=== PATIENT | female | born 1945 | race Two or more races ===

== ENCOUNTER 2024-11-13 15:04 | Inpatient (IN) | payer OTHER ==
[~2024-11-13] VITALS: Ht 170.2 cm; Wt 76.0 kg
[~2024-11-13 15:04] MED LIST: FLUT1AER3 IN; FURO40TA4 PO; HYDR1CAP27 PO; IPRAAER6 IN; LEVO25TA6 PO; METO2.5T PO; METO25TA5 PO; POTA-180 PO; SERT-206 PO; SIMV20TA20 PO
--- NOTE | 2024-11-13 15:29 | ECG ---
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
--- NOTE | 2024-11-13 15:50 | DVH ---
CHEST RADIOGRAPH Indication: SOB Technique: Single frontal view of the chest was obtained Comparison: XY CHEST PORTABLE on DOS: 09/12/24, XY CHEST PORTABLE on DOS: 09/10/24, XY CHEST PORTABLE o n DOS: 09/09/24 FINDINGS: Lines and Tubes: None Lungs: No focal consolidation. Pleura: No effusion. No pneumothorax. Cardiomediastinal contours: Unremarkable Bones: No acute osseous abnormality. IMPRESSION: 1. No acute cardiopulmonary disease.
[2024-11-13 16:28] VITALS: PULSE 113; RESP 18; O2SAT 100
[2024-11-13] MEDS: SODIUM CHLORIDE 0.9% 1,000 ML IV ONE (16:28)
--- NOTE | 2024-11-13 16:38 | ED.PDOC ---
History of Present Illness HPI Comments 79-year-old female came in by ambulance with prior history of CHF, COPD, bladder cancer, hypertension; surgical history of hysterectomy in the chief complain of shortness of breath/weakness. EMS report of the patient's blood pressure being systolic in the 80s, with bilateral with the edema, and an open wound under the right foot. Patient uses O2 at home at 2 L and EMS brought the O2 of two 6 L. EMS report that the patient informed them of the patient having all these symptoms for the past 3 weeks. Denies chills, fever, N/V/D, CP. No other associated symptoms, modifiers, recent injuries or sick contacts present at this time. Patient was tachycardic and hypotensive on arrival. Chief Complaint: General Weakness Time Seen by MD: 15:15 Primary Care Provider: unknown Reviewed Notes: Nurses Notes, Demographer Notes, Medications, Allergies Allergies: Coded Allergies: Bupropion (Verified Allergy, Severe, 07/14/19) Ciprofloxacin (Verified Allergy, Severe, 07/14/19) Naproxen (Verified Allergy, Intermediate, 09/03/24) RASH Home Meds Reported Medications Hydroxyzine Pamoate (Hydroxyzine Pamoate) 25 Mg Cap, 1 CAP PO TID PRN for ANXIETY for 60 Days, #180 09/04/24 Furosemide (Furosemide) 40 Mg Tab, 1 TAB PO BID for 100 Days, #200 25 Iaxjnpccftu-Ihxekylhqwop-Bzrja (Trelegy Ellipta 100-62.5-25 Mcg/INH) 1 Aer Aer, 1 PUFF IN DAILY for 30 Days, #60 3//25 Ipratropium-Albuterol (COMBIVENT RESPIMAT) Respimat Aer, 1 PUFF IN Q6HR PRN for 30 Days, #4 25 Potassium Chloride (Potassium Chloride ER) 20 Meq Tab, 1 TAB PO BID for 90 Days, #180 325 Metolazone (Metolazone) 2.5 Mg Tab, 1 TAB PO DAILY for 90 Days, #90 25 Levothyroxine Sodium (Levothyroxine Sodium) 25 Mcg Tab, 1 TAB PO DAILY for 90 Days, #90 25 Sertraline Hcl (Sertraline Hcl) 50 Mg Tab, 1 TAB PO DAILY for 100 Days, #100 3//25 Metoprolol Tartrate (Metoprolol Tartrate) 25 Mg Tab, 1 TAB PO BID for 100 Days, #200 09/04/24 Simvastatin (Simvastatin) 20 Mg Tab, 1 TAB PO QPM for 100 Days, #100 07/15/19 Information Source: Patient, Emergency Med Personnel Mode of Arrival: EMS Severity: Moderate Timing: Weeks Duration: Since onset Prehospital treatment: None Past Medical History PAST MEDICAL HISTORY: Cancer (Bladder cancer), CHF, COPD, HTN Surgical History: Hysterectomy 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: No Pertinent 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 Family History Family History: Reviewed,noncontributory to illness, Unknown Social History Smoker: Non-Smoker Alcohol: Denies ETOH Use Drugs: Denies Drug Use Lives In: Home Constitutional: reports: malaise, weakness; denies: chills, diaphoresis, fatigue, fever, sweats, others EENTM: denies: blurred vision, double vision, ear bleeding, ear discharge, ear drainage, ear pain, ear ringing, eye pain, eye redness, hearing loss, mouth pain, mouth swelling, nasal discharge, nose bleeding, nose congestion, nose pain, photophobia, tearing, throat pain, throat swelling, voice changes, others Respiratory: reports: shortness of breath; denies: cough, hemoptysis, orthopnea, SOB at rest, SOB with excertion, stridor, wheezing, others Cardiovascular: denies: chest pain, dizzy spells, diaphoresis, Dyspnea on exertion, edema, irregular heart beat, left arm pain, lightheadedness, palpitations, PND, syncope, others Gastrointestinal: denies: abdomen distended, abdominal pain, blood streaked bowels, constipated, diarrhea, dysphagia, difficulty swallowing, hematemesis, melena, nausea, poor appetite, poor fluid intake, rectal bleeding, rectal pain, vomiting, others Genitourinary: denies: abnormal vagina bleeding, burning, dyspareunia, dysuria, flank pain, frequency, hematuria, incontinence, pain, , vagina discharge, urgency, others Neurological: denies: dizziness, fainting, headache, left sided numbness, left sided weakness, numbness, paresthesia, pre-existing deficit, right sided numbness, right sided weakness, seizure, speech problems, tingling, tremors, weakness, others Musculoskeletal: denies: back pain, gout, joint pain, joint swelling, muscle pain, muscle stiffness, neck pain, others Integumetry: denies: bruises, change in color, change in hair/nails, dryness, laceration, lesions, lumps, rash, wounds, others Allergic/Immunocompromised: denies: Difficulty Healing, Frequent Infections, Hives, Itching, others Hematologic/Lymphatic: denies: anemia, blood clots, easy bleeding, easy bruising, swollen glands, others Endocrine: denies: excessive hunger, excessive sweating, excessive thirst, excessive urination, flushing, intolerance to cold, intolerance to heat, unexplained weight gain, unexplained weight loss, others Psychiatric: denies: anxiety, bipolar disorder, depression, hopeless, panic disorder, schizophrenia, sleepless, suicidal, others All Other Systems: Reviewed and Negative Physical Exam General Appearance: Moderate Distress (Patient is a moderate distress due to shortness a breath and general ill feeling concerns.), Normal HEENT: Normal ENT Inspection, Pharynx Normal, TMs Normal Neck: Full Range of Motion, Non-Tender, Normal, Normal Inspection Respiratory: Chest Non-Tender, No Accessory Muscle Use, Other ( Patchy rhonchi appreciated right middle lobe and left upper lobe. No accessory muscle use. No signs of respiratory distress. Patient was on multi L of O2 via nasal cannula at time of evaluation.) Cardiovascular: No Edema, No JVD, No Murmur, No Gallop, Normal Peripheral Pulses, Regular Rate/Rhythm Breast Exam: Deferred Gastrointestinal: No Organomegaly, Non Tender, No Pulsatile Mass, Normal Bowel Sounds, Soft Genitalia: Deferred Pelvic: Deferred Rectal: Deferred Extremities: Tender ( Tenderness to palpation throughout bilateral lower extremity edema with mild 1+ pitting edema appreciated. Patient has a large eschar formation under the right heel that should be evaluated by wound care.) Musculoskeletal : Apperance: Normal Neurologic: Alert, No Motor Deficits, Normal Affect, Normal Mood, No Sensory Deficits Cerebellar Function: NOT DONE Reflexes: NOT DONE Skin: Dry, Normal Color, Warm Lymphatic: No Adenopathy Was a procedure done? Was a procedure done?: No Differential Dx Considerations may include: Acute coronary syndrome, mom viral illness, sepsis, electrolyte abnormality, UTI X-Ray, Labs, Meds, VS Vital Signs Date Time Temp Pulse Resp B/P (MAP) Pulse Ox O2 Delivery O2 Flow Rate FiO2 5/15/25 19:29 97.5 114 12 105/52 (69) 96 97.5 11/13/24 17:35 104 14 96/48 (64) 99 11/13/24 16:28 113 18 100 Nasal Cannula* 4 36 11/13/24 16:28 98.0 70 19 94/53 (67) 95 98.0 11/13/24 15:25 106 11/13/24 15:24 14 92 6.0 11/13/24 15:24 98.2 102 14 96/63 (74) 92 98.2 Lab Test 11/13/24 19:14 11/13/24 17:34 Range/Units Lactic Acid Level Pending 2.1 *H 0.4-2.0 mmol/L Troponin I High Sensitivity Pending 21 </=34 ng/L White Blood Count 7.4 4.4-10.8 10^3/uL Red Blood Count 2.88 L 4.0-5.20 10^6/uL Hemoglobin 9.1 L 12.2-16.2 g/dL Hematocrit 27.4 L 36.0-46.0 % Mean Corpuscular Volume 94.9 80.0-100.0 fL Mean Corpuscular Hemoglobin 31.5 28.0-32.0 pg Mean Corpuscular Hemoglobin Concent 33.2 32.0-36.0 g/dL Red Cell Distribution Width 18.5 H 11.8-14.3 % Platelet Count 225 140-450 10^3/uL Mean Platelet Volume 6.4 L 6.9-10.8 fL Neutrophils (%) (Auto) 65.3 37.0-80.0 % Lymphocytes (%) (Auto) 24.6 10.0-50.0 % Monocytes (%) (Auto) 9.1 0.0-12.0 % Eosinophils (%) (Auto) 0.5 0.0-7.0 % Basophils (%) (Auto) 0.5 0.0-2.0 % Neutrophils # (Auto) 4.8 1.6-8.6 10 ^3/uL Lymphocytes # (Auto) 1.8 0.4-5.4 10 ^3/uL Monocytes # (Auto) 0.7 0-1.3 10 ^3/uL Eosinophils # (Auto) 0 0-0.8 10 ^3/uL Basophils # (Auto) 0 0-0.2 10 ^3/uL Nucleated Red Blood Cells 0.2 % D-Dimer, Quantitative 1.45 H 0.0-0.49 mg/L FEU Sodium Level 136 136-145 mmol/L Potassium Level 2.7 L 3.5-5.1 mmol/L Chloride Level 93 L 98-107 mmol/L Carbon Dioxide Level 34 H 20-31 mmol/L Anion Gap 9 5-15 Blood Urea Nitrogen 15 9-23 mg/dL Creatinine 0.88 0.550-1.02 mg/dL Glomerular Filtration Rate Calc 66 >90 mL/min BUN/Creatinine Ratio 17.0 10.0-20.0 Serum Glucose 75 74-106 mg/dL Calcium Level 8.5 L 8.7-10.4 mg/dL Total Bilirubin 0.2 0.2-1.0 mg/dL Aspartate Amino Transferase (AST) 26 13-40 U/L Alanine Aminotransferase (ALT) 21 7-40 U/L Alkaline Phosphatase 71 46-116 U/L B-Type Natriuretic Peptide 548.37 0-100 pg/mL Total Protein 5.4 L 5.7-8.2 g/dL Albumin 3.3 3.2-4.8 g/dL Lipase 34 12-53 U/L Current Medications Medications (Trade) Dose Ordered Sig/Isha Route Start Time Stop Time Status Last Admin Sodium Chloride 1,000 ml @ 150 mls/hr Q6H40M ONCE IV 11/13/24 15:30 11/13/24 22:09 11/13/24 16:28 Lorazepam (Ativan Tablet) 1 mg ONCE ONCE PO 11/13/24 18:45 11/13/24 18:46 DC 11/13/24 18:50 X-Ray, Labs, Meds, VS Comment All studies performed the ED were evaluated by me personally. Patient's laboratories revealed an anemia, what appears to be a acute CHF exacerbation, hypokalemia and elevated troponin. Patient's EKG revealed an atrial fibrillation with a rapid ventricular rate. Rate of 185 old until infarct noted with repolarization abnormality and baseline wander in leads One, three, AVR and aVL. QT interval of 262. Metoprolol was utilized for AFib conversion. Chest x-ray was unremarkable for any acute intrapulmonary or cardiac concern. Patient will be admitted for management of her CHF concerns as well as cardiac consultation to address her and AFib issues. Time of 1ST Reevaluation: 20:13 Reevaluation 1ST: Improved Consultation: PCP, Cardiology Patient Education/Counseling: Diagnosis, Treatment, Prognosis Family Education/Counseling: Diagnosis, Treatment, No Family Present Departure 1 Departure Time of Disposition: 20:14 Impression: Primary Impression: Atrial fibrillation Additional Impressions: Acute exacerbation of CHF (congestive heart failure) Anemia Hypokalemia Elevated troponin I level Disposition: ADMITTED INPATIENT Condition: Fair Discharged With: Self Critical Care Note Critical Care Time?: No Stability Stability form required: No Heart Score Heart Score: Heart Score Response (Comments) Value History Moderate Suspicious 1 EKG Repolarization Disturb 1 Age >65 2 Risk Factors 1 or 2 risk factors 1 Troponin Normal limit 0 Total 5 I personally scribed for ASPEN MCKINNON PAC ([email or web address]) on 11/13/24 at 16:37. Electronically submitted by Juan Hooker ([email or web address]). ASPEN MCKINNON PAC November 13, 2024 16:37
[2024-11-13 18:01] LABS: Basophils # (auto) 0 10 ^3/uL (0-0.2); Basophils % (auto) 0.5 % (0.0-2.0); Eosinophils # (auto) 0 10 ^3/uL (0-0.8); Eosinophils % (auto) 0.5 % (0.0-7.0); Hematocrit 27.4 % (36.0-46.0); Hemoglobin 9.1 g/dL (12.2-16.2); Lymphocytes # (auto) 1.8 10 ^3/uL (0.4-5.4); Lymphocytes % (auto) 24.6 % (10.0-50.0); Mean Corpuscular Hemoglobin 31.5 pg (28.0-32.0); Mean Corpuscular Hgb Conc. 33.2 g/dL (32.0-36.0); Mean Corpuscular Volume 94.9 fL (80.0-100.0); Monocytes # (auto) 0.7 10 ^3/uL (0-1.3); Monocytes % (auto) 9.1 % (0.0-12.0); Neutrophils # (auto) 4.8 10 ^3/uL (1.6-8.6); Neutrophils % (auto) 65.3 % (37.0-80.0); Nucleated Red Blood Cells % 0.2 %; Platelet Count (auto) 225 10^3/uL (140-450); Red Blood Cells 2.88 10^6/uL (4.0-5.20); Red Cell Distribution Width 18.5 % (11.8-14.3); White Blood Cell 7.4 10^3/uL (4.4-10.8)
[2024-11-13 18:19] LABS: Alanine Aminotransferase 21 U/L (7-40); Albumin 3.3 g/dL (3.2-4.8); Alkaline Phosphatase 71 U/L (46-116); Anion Gap 9 (5-15); Aspartate Aminotransferase 26 U/L (13-40); Blood Urea Nitrogen 15 mg/dL (9-23); Glucose 75 mg/dL (74-106); Lipase 34 U/L (12-53)
[2024-11-13 18:20] LABS: Bilirubin, Total 0.2 mg/dL (0.2-1.0); Calcium 8.5 mg/dL (8.7-10.4); Carbon Dioxide 34 mmol/L (20-31); Chloride 93 mmol/L (98-107); Potassium 2.7 mmol/L (3.5-5.1); Sodium 136 mmol/L (136-145); Total Protein 5.4 g/dL (5.7-8.2)
[2024-11-13 18:21] LABS: Lactic Acid w/Reflex 2.1 mmol/L (0.4-2.0)
[2024-11-13] MEDS: LORazepam 0.5 MG TAB PO ONE (18:50)
[2024-11-13 20:00] VITALS: PULSE 105; RESP 21; O2SAT 100
[2024-11-13] MEDS: POTASSIUM EFFERVESENT TAB 25 MEQ PO ONE (20:15)
[2024-11-13] MEDS: METOPROLOL TARTRATE 1MG/1ML-5ML VIAL IV ONE (20:15)
[2024-11-13] MEDS: IOHEXOL 350 MG/ML 100ML IJ ONE (20:34)
[2024-11-13] MEDS ORDERED: POTASSIUM CHL 20MEQ/50ML 50 ML IV SCH (21:00)
[2024-11-13] MEDS: FUROSEMIDE 40 MG/4 ML VIAL IV ONE (21:13)
--- NOTE | 2024-11-13 21:20 | DVH ---
PROCEDURE: CT CT ANGIO CHEST CONTRAST 11/13/2024 08:33 PM INDICATION: Elevated D-dimer COMPARISON: None TECHNIQUE: Coverage: Thorax IV contrast: Administered Phases: Arterial Multiplanar 3-D Maximum Intensity Projection images (MIP) reconstructions were created by the techngrabiel sánchez in the coronal and sagittal planes as part of the CT angiography protocol. Adverse events: None Medication laboratory values were reviewed to verify the patient meets criteria for contrast administ ration. All CT scans at this medical facility are performed using dose modulation techniques as appropriate t o a performed exam including the following: Automated exposure control was utilized; adjustment of th e MA and/or KV according to patient size; and use of iterative reconstruction technique. Radiation dose: CTDIvol 17.8 mGy, DLP 1057 mGy*cm. FINDINGS: Cardiovascular: Thin chronic appearing eccentric emboli in the posterior basal segmental and subsegme ntal branches of the right lower lobe noted. Pulmonary arterial trunk is prominent measuring 3.3 cm i n transverse. No evidence of right heart strain. Thoracic aorta is normal in caliber with diffuse ath erosclerotic calcifications. 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 No aortic dissection. Coronary artery calcificatio n and calcification of the mitral annulus noted. The heart is normal in size. Trace pericardial effus ion. Lungs: Trace right pleural effusion with mild adjacent compressive atelectasis. Numerous bilateral pu lmonary nodules measuring up to 1.2 cm in the left lower lobe. No pneumothorax. The airways are paten t. Thyroid: Unremarkable. Esophagus: Unremarkable. Lymphatics: Mild mediastinal and bilateral hilar lymphadenopathy with lymph nodes measuring up to 1 c m in short-axis Bones/soft tissues: No acute abnormality. Chronic appearing anterior compression deformities of sever al midthoracic vertebrae without retropulsion. Upper abdomen: Cholelithiasis without evidence of cholecystitis. Small bilateral renal cysts are see n. Several subcentimeter nonobstructing bilateral renal calculi are noted. Left adrenal gland hyperpl merced. Other: None. IMPRESSION: 1. Thin Chronic appearing nonocclusive segmental subsegmental right lower lobe pulmonary emboli with evidence of pulmonary arterial hypertension. 2. Trace right pleural effusion with mild adjacent pulmonary opacities likely subsegmental atelectasi s or developing pneumonia. Recommend clinical and biochemical correlation. 3. Several bilateral pulmonary nodules measuring up to 1.2 cm. Mediastinal or hilar lymphadenopathy n oted.
[2024-11-13] MEDS: POTASSIUM CHL 20MEQ/100ML 100 ML IV SCH (21:45)
[2024-11-13] MEDS ORDERED: ENOXAPARIN SOD 80 MG/0.8ML SYRINGE SC ONE (23:15)
[2024-11-13] MEDS: ENOXAPARIN SOD 40 MG/0.4 ML SYRINGE SC ONE (23:25)
[2024-11-13] MEDS: HYDROcodone-ACET 5/325MG TAB PO PRN (23:33)
--- NOTE | 2024-11-13 23:38 | DVHHP2 ---
History of Present Illness Reason for Visit: COPD with acute exacerbation History of Present Illness The patient is a 79-year-old female with past medical history of bladder cancer, CHF, COPD, thyroid disease, and hypertension who presented to [facility] ED with complaint of shortness of breaths for the past 3 weeks. Patient reports symptoms progressively get worse with generalized weakness, hypotension with systolic blood pressure in the 80s, bilateral lower extremity edema, and open wound under the right foot, increased work of breathing, getting worse today that prompted this visit. Patient was seen and evaluated in the ED, laboratory data shows WBC 7.4, platelets 225, hemoglobin 9.1, hematocrit 27.4, sodium 136, potassium 2.7, BUN 15, creatinine 0.88, glucose 75, lactic acid 2.1, calcium 8.5, troponin 23, BNP 548.37, D-dimer 1.45, blood pressure 97/36, heart rate 118 trending down to 78, temperature 97.6 F, O2 saturation 96% on oxygen. CT Angiography revealing thin chronic appearing nonocclusive segmental subsegmental right lower lobe pulmonary emboli with evidence of pulmonary atrial hypertension, several bilateral pulmonary nodules measuring up to 1.2 cm, mediastinal or hilar lymphadenopathy noted. Patient was started on IV Lasix, please see medication orders section in the computer. On my assessment, patient denies chest pain, no headache, no dizziness, no diaphoresis, no abdominal pain, no nausea, no vomiting, no fever, no chills. Patient was admitted for further evaluation and medical management. Past Medical History Cancer (Bladder cancer), CHF, COPD, HTN, Hypothyroidism Past Surgical History Hysterectomy Family History Reviewed, noncontributory to the management of this case. Past Social History The patient lives at home, denies smoking, alcohol or illicit drugs abuse. Review of Systems Constitutional: Yes: Weakness, Malaise; No: Fever, Chills, Sweats, Other Eyes: No: Pain, Vision change, Conjunctivae inflammation, Eyelid inflammation, Other, Redness ENT: No: Ear pain, Ear discharge, Nose pain, Nose discharge, Nose congestion, Mouth pain, Mouth swelling, Throat pain, Throat swelling, Other Respiratory: Shortness of breath, SOB with excertion, Other (SOB at rest); No: Cough, Dry, Wheezing, Hemoptysis, Pleuritic Pain, Sputum, Wheezing Cardiovascular: No: Chest Pain, Palpitations, Orthopnea, Paroxysmal Noc. Dyspnea, Edema, Lt Headedness, Other Gastrointestinal: No: Nausea, Vomiting, Abdominal Pain, Diarrhea, Constipation, Melena, Hematochezia, Other Genitourinary: No Dysuria, No Frequency, No Incontinence, No Hematuria, No Retention, No Other Musculoskeletal: No: other, neck pain, shoulder pain, arm pain, back pain, hand pain, leg pain, foot pain Skin: Other (Right foot open wound); No: Rash, Lesions, Jaundice, Bruising Neurological: No: Weakness, Numbness, Incoordination, Change in speech, Confusi on, Seizures, Other Allergies: Coded Allergies: Bupropion (Verified Allergy, Severe, 07/14/19) Ciprofloxacin (Verified Allergy, Severe, 07/14/19) Naproxen (Verified Allergy, Intermediate, 09/03/24) RASH Medications Current Medications Medications Dose Ordered Sig/Isha Route Start Time Stop Time Status Last Admin Dose Admin Potassium Chloride 100 ml @ 50 mls/hr Q2H IV 11/13/24 21:30 11/14/24 01:29 11/13/24 21:45 50 MLS/HR Furosemide 20 mg DAILY IV 11/14/24 10:00 Carvedilol 3.125 mg Q12HR PO 11/14/24 10:00 Levalbuterol HCl 0.625 mg Q6HR PRN NEB 11/13/24 23:15 Levothyroxine Sodium 25 mcg QAM@0600 PO 11/14/24 06:00 Atorvastatin Calcium 20 mg HS PO 11/14/24 22:00 Sertraline HCl 50 mg DAILY PO 11/14/24 10:00 Sodium Chloride 10 ml Q8HR IV 11/14/24 06:00 Acetaminophen/ Hydrocodone Bitart 1 tab Q4HP PRN PO 11/13/24 23:15 11/13/24 23:33 1 TAB Ondansetron HCl 4 mg Q4HP PRN IV 11/13/24 23:15 Docusate Sodium 100 mg BIDPRN PRN PO 11/13/24 23:15 Acetaminophen 650 mg Q6HP PRN PO 11/13/24 23:15 Enoxaparin Sodium 60 mg Q12HR SC 11/14/24 10:00 UNV Exam Vital Signs Vital Signs Date Time Temp Pulse Resp B/P (MAP) Pulse Ox O2 Delivery O2 Flow Rate FiO2 11/13/24 21:13 97/36 11/13/24 20:15 78 11/13/24 19:29 97.5 12 96 97.5 11/13/24 16:28 Nasal Cannula* 4 36 General Appearance: Alert, Oriented X3, Cooperative, No acute distress HEENT: Atraumatic, PERRLA, EOMI, Mucous membr. moist/pink Respiratory: Normal air movement, Other (Diminished breath sounds) Cardiovascular: Regular rate, Normal S1, Normal S2, No murmurs Abdominal: Normal bowel sounds, Soft, No tenderness, No hepatospenomegaly, No masses Extremities: No clubbing, No cyanosis, No edema, Normal pulses, No tenderness/swelling Skin: No rashes, No breakdown, No significant lesion Neuro: Normal speech, Normal tone, Sensation intact, Cranial nerves 3-12 NL, Reflexes 2+, Other (Generalized weakness) Psych/Mental Status: Mental status NL, Mood NL Labs/Xrays Labs Test 11/13/24 20:26 11/13/24 19:14 11/13/24 17:34 Range/Units Troponin I High Sensitivity 23 </=34 ng/L Lactic Acid Level 2.1 *H 0.4-2.0 mmol/L White Blood Count 7.4 4.4-10.8 10^3/uL Red Blood Count 2.88 L 4.0-5.20 10^6/uL Hemoglobin 9.1 L 12.2-16.2 g/dL Hematocrit 27.4 L 36.0-46.0 % Mean Corpuscular Volume 94.9 80.0-100.0 fL Mean Corpuscular Hemoglobin 31.5 28.0-32.0 pg Mean Corpuscular Hemoglobin Concent 33.2 32.0-36.0 g/dL Red Cell Distribution Width 18.5 H 11.8-14.3 % Platelet Count 225 140-450 10^3/uL Mean Platelet Volume 6.4 L 6.9-10.8 fL Neutrophils (%) (Auto) 65.3 37.0-80.0 % Lymphocytes (%) (Auto) 24.6 10.0-50.0 % Monocytes (%) (Auto) 9.1 0.0-12.0 % Eosinophils (%) (Auto) 0.5 0.0-7.0 % Basophils (%) (Auto) 0.5 0.0-2.0 % Neutrophils # (Auto) 4.8 1.6-8.6 10 ^3/uL Lymphocytes # (Auto) 1.8 0.4-5.4 10 ^3/uL Monocytes # (Auto) 0.7 0-1.3 10 ^3/uL Eosinophils # (Auto) 0 0-0.8 10 ^3/uL Basophils # (Auto) 0 0-0.2 10 ^3/uL Nucleated Red Blood Cells 0.2 % D-Dimer, Quantitative 1.45 H 0.0-0.49 mg/L FEU Sodium Level 136 136-145 mmol/L Potassium Level 2.7 L 3.5-5.1 mmol/L Chloride Level 93 L 98-107 mmol/L Carbon Dioxide Level 34 H 20-31 mmol/L Anion Gap 9 5-15 Blood Urea Nitrogen 15 9-23 mg/dL Creatinine 0.88 0.550-1.02 mg/dL Glomerular Filtration Rate Calc 66 >90 mL/min BUN/Creatinine Ratio 17.0 10.0-20.0 Serum Glucose 75 74-106 mg/dL Calcium Level 8.5 L 8.7-10.4 mg/dL Total Bilirubin 0.2 0.2-1.0 mg/dL Aspartate Amino Transferase (AST) 26 13-40 U/L Alanine Aminotransferase (ALT) 21 7-40 U/L Alkaline Phosphatase 71 46-116 U/L B-Type Natriuretic Peptide 548.37 0-100 pg/mL Total Protein 5.4 L 5.7-8.2 g/dL Albumin 3.3 3.2-4.8 g/dL Lipase 34 12-53 U/L PATIENT: DREW BROWN ACCT: [id number] UNIT: [id number] : 1945 LOC: ER ROOM / BED: / AGE / SEX: 79 / F ADM STATUS: REG ER SERVICE 00 ORDERING PHYSICIAN: ASPEN MCKINNON PAC PROCEDURE(s): CTACH - CT ANGIO CHEST CONTRAST REASON: Elevated D-dimer ORDER NUMBER(s): [id number], ACCESSION NUMBER(s): [id number] PROCEDURE: CT CT ANGIO CHEST CONTRAST 11/13/2024 08:33 PM INDICATION: Elevated D-dimer COMPARISON: None TECHNIQUE: Coverage: Thorax IV contrast: Administered Phases: Arterial Multiplanar 3-D Maximum Intensity Projection images (MIP) reconstructions were created by the technologist in the coronal and sagittal planes as part of the CT angiography protocol. Adverse events: None Medication laboratory values were reviewed to verify the patient meets criteria for contrast administration. All CT scans at this medical facility are performed using dose modulation techniques as appropriate to a performed exam including the following: Automated exposure control was utilized; adjustment of the MA and/or KV according to patient size; and use of iterative reconstruction technique. Radiation dose: CTDIvol 17.8 mGy, DLP 1057 mGy*cm. FINDINGS: Cardiovascular: Thin chronic appearing eccentric emboli in the posterior basal segmental and subsegmental branches of the right lower lobe noted. Pulmonary arterial trunk is prominent measuring 3.3 cm in transverse. No evidence of right heart strain. Thoracic aorta is normal in caliber with diffuse atherosclerotic calcifications. 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 No aortic dissection. Coronary artery calcification and calcification of the mitral annulus noted. The heart is normal in size. Trace pericardial effusion. Lungs: Trace right pleural effusion with mild adjacent compressive atelectasis. Numerous bilateral pulmonary nodules measuring up to 1.2 cm in the left lower lobe. No pneumothorax. The airways are patent. Thyroid: Unremarkable. Esophagus: Unremarkable. Lymphatics: Mild mediastinal and bilateral hilar lymphadenopathy with lymph nodes measuring up to 1 cm in short-axis Bones/soft tissues: No acute abnormality. Chronic appearing anterior compression deformities of several midthoracic vertebrae without retropulsion. Upper abdomen: Cholelithiasis without evidence of cholecystitis. Small bilateral renal cysts are seen. Several subcentimeter nonobstructing bilateral renal calculi are noted. Left adrenal gland hyperplasia. Other: None. IMPRESSION: 1. Thin Chronic appearing nonocclusive segmental subsegmental right lower lobe pulmonary emboli with evidence of pulmonary arterial hypertension. 2. Trace right pleural effusion with mild adjacent pulmonary opacities likely subsegmental atelectasis or developing pneumonia. Recommend clinical and biochemical correlation. 3. Several bilateral pulmonary nodules measuring up to 1.2 cm. Mediastinal or hilar lymphadenopathy noted. ORDERING PHYSICIAN: ASPEN MCKINNON PAC PROCEDURE(s): CXRP - CHEST PORTABLE REASON: SOB ORDER NUMBER(s): [id number], ACCESSION NUMBER(s): [id number] CHEST RADIOGRAPH Indication: SOB Technique: Single frontal view of the chest was obtained Comparison: XY CHEST PORTABLE on DOS: 09/12/24, XY CHEST PORTABLE on DOS: 09/10/24, XY CHEST PORTABLE on DOS: 09/09/24 FINDINGS: Lines and Tubes: None Lungs: No focal consolidation. Pleura: No effusion. No pneumothorax. Cardiomediastinal contours: Unremarkable Bones: No acute osseous abnormality. IMPRESSION: 1. No acute cardiopulmonary disease. Assessment/Plan Assessment/Plan Atrial fibrillation Pulmonary embolism COPD with acute exacerbation Anemia, unspecified Hypokalemia Generalized weakness Acute exacerbation of congestive heart failure Plan 1. Admit to telemetry unit 2. Breathing treatment 3. Pain control management 4. Management of fluids and electrolytes 5. Consultation for hospitalist/pulmonology 6. Diagnostic tests chest x-ray 7. DVT prophylaxis-on Lovenox 8. Repeat labs CBC, CMP in a.m. 9. Continue with current medical management 10. Treatment plan discussed with patient and RN. Patient verbalized understanding. Plan discussed with: Patient, Other (RN) My Orders Orders - ARIN HUFF DNP Procedure Category Date Status Time Furosemide Injection PHA 11/14/24 In Process (Lasix Injection) 10:00 Carvedilol Tablet PHA 11/14/24 In Process (Coreg Tablet) 10:00 Type And Screen BBK 11/13/24 Logged 23:05 Levalbuterol Hcl PHA 11/13/24 In Process (Xopenex Medneb) 23:15 Levothyroxine Tablet PHA 11/14/24 In Process (Synthroid Tablet) 06:00 Atorvastatin (Lipitor) PHA 11/14/24 In Process 22:00 Sertraline Hcl PHA 11/14/24 In Process (Zoloft) 10:00 Allergies JEAN 11/13/24 In Process 23:05 Code Status CODE 11/13/24 Transmitted 23:05 Sodium Chloride Lock PHA 11/14/24 In Process (Saline Lock Ns) 06:00 Oxygen Per Hour RT 11/13/24 Transmitted 23:05 Hydrocodone-Acet PHA 11/13/24 In Process 5/325mg Tab ([place] 23:15 Ondansetron Hcl PHA 11/13/24 In Process (Zofran) 23:15 Docusate Sodium PHA 11/13/24 In Process Capsule (Colace 23:15 Fall Risk Precautions JEAN 11/13/[address] 23:05 Complete Blood Count LAB 11/14/24 Verified 04:00 Comprehensive LAB 11/14/24 Verified Metabolic Panel 04:00 Condition: Serious JEAN 11/13/24 In Process 23:05 Acetaminophen Tablet PHA 11/13/24 In Process (Tylenol Tablet) 23:15 Bedrest With Bathroom JEAN 11/13/24 In Process Privileg 23:05 Sequential JEAN 11/13/24 In Process Compression Device Enoxaparin Sodium PHA 11/13/24 Logged (Lovenox) 23:15 Enoxaparin Sodium PHA 11/14/24 Logged (Lovenox) 10:00 Admit ADMIT 11/13/24 Transmitted 23:35 Nitroglycerin [facility] 11/13/24 Transmitted Sublingual (Ntrostat 23:45 Morphine Sulfate PHA 11/13/24 Transmitted Injection 23:45 Notify Of Changes [facility] 11/13/24 In Process From Base 23:35 Real Estate Leasing Agent For [facility] 11/13/24 In Process 24 Hours 23:35 Emergency Dysrhythmia [facility] 11/13/24 In Process Protocol 23:35 Rhythm Strips Once [facility] 11/13/24 In Process Every Shift 23:35 Oxygen By Nasal RT 11/13/24 Transmitted Cannula 23:35 Problem List: (1) Atrial fibrillation (2) Pulmonary embolism (3) COPD with acute exacerbation (4) Hypokalemia (5) Anemia, unspecified (6) Generalized weakness (7) Acute CHF (congestive heart failure) Date of Service: November 13, 2024 Billing Provider: ARIN HUFF DNP Common Visit Codes: [id number] INP/OBS CARE (HIGH) ARIN HUFF DNP November 13, 2024 23:37
[2024-11-13] MEDS ORDERED: MORPHINE SULFATE INJ 2 MG/ml SYRG IV PRN (23:45)
[2024-11-13] MEDS ORDERED: NITROGLYCERIN 0.4 MG SL TAB SL PRN (23:45)
[2024-11-14] VITALS (13 sets, daily range): BP systolic 94–101; BP diastolic 44–63; PULSE 66–117; RESP 16–20; TEMP 97.3–98.1; O2SAT 89–100
[2024-11-14] MEDS: ACETAMINOPHEN 325 MG TAB PO PRN (01:25)
[2024-11-14] MEDS: LEVOTHYROXINE SODIUM 25 MCG TAB PO SCH (06:04)
[2024-11-14] MEDS: SODIUM CHLOR 0.9% PF (SALINE LOCK) 10ML VIAL/SYR IV SCH (06:05)
[2024-11-14 06:10] LABS: Basophils # (auto) 0 10 ^3/uL (0-0.2); Eosinophils # (auto) 0.1 10 ^3/uL (0-0.8); Hemoglobin 7.5 g/dL (12.2-16.2); Monocytes # (auto) 0.5 10 ^3/uL (0-1.3); Neutrophils # (auto) 3.3 10 ^3/uL (1.6-8.6); White Blood Cell 5.3 10^3/uL (4.4-10.8)
[2024-11-14 06:15] LABS: Basophils % (auto) 0.6 % (0.0-2.0); Eosinophils % (auto) 1.1 % (0.0-7.0); Hematocrit 22.4 % (36.0-46.0); Lymphocytes # (auto) 1.5 10 ^3/uL (0.4-5.4); Lymphocytes % (auto) 27.6 % (10.0-50.0); Mean Corpuscular Hemoglobin 31.2 pg (28.0-32.0); Mean Corpuscular Hgb Conc. 33.4 g/dL (32.0-36.0); Mean Corpuscular Volume 93.5 fL (80.0-100.0); Monocytes % (auto) 8.8 % (0.0-12.0); Neutrophils % (auto) 61.9 % (37.0-80.0); Nucleated Red Blood Cells % 0.1 %; Platelet Count (auto) 179 10^3/uL (140-450); Red Cell Distribution Width 18.4 % (11.8-14.3)
[2024-11-14 06:28] LABS: Alanine Aminotransferase 15 U/L (7-40); Alkaline Phosphatase 56 U/L (46-116); Anion Gap 4 (5-15); BUN/Creatinine Ratio 14.3 (10.0-20.0); Blood Urea Nitrogen 12 mg/dL (9-23); Chloride 99 mmol/L (98-107); Sodium 136 mmol/L (136-145)
[2024-11-14 06:29] LABS: Aspartate Aminotransferase 19 U/L (13-40)
[2024-11-14 06:30] LABS: Bilirubin, Total 0.2 mg/dL (0.2-1.0); Calcium 8.2 mg/dL (8.7-10.4); Carbon Dioxide 33 mmol/L (20-31); Glucose 71 mg/dL (74-106); Potassium 3.3 mmol/L (3.5-5.1)
[2024-11-14] MEDS: SERTRALINE HCL 50 MG TAB PO SCH (09:51)
[2024-11-14] MEDS: FUROSEMIDE 20 MG/2 ML VIAL IV SCH (09:51)
[2024-11-14] MEDS: CARVEDILOL 3.125 MG TAB PO SCH (09:52)
[2024-11-14] MEDS: ENOXAPARIN SOD 60 MG/0.6 ML SYRINGE SC SCH (09:52)
--- NOTE | 2024-11-14 13:13 | DVHPN2 ---
Reviewed: Care Plan, H&P, Labs, Medications, Previous Orders, Radiology Changes from previous H/P or p: No Changes Eyes: No Pain, No Vision change, No Conjunctivae inflammation, No Eyelid inflammation, No Other, No Redness ENT: No Ear pain, No Ear discharge, No Nose pain, No Nose discharge, No Nose congestion, No Mouth pain, No Mouth swelling, No Throat pain, No Throat swelling, No Other Cardiovascular: No Chest Pain, No Palpitations, No Orthopnea, No Paroxysmal Noc. Dyspnea, No Edema, No Lt Headedness, No Other Respiratory: No Cough, No Dry; Shortness of breath, SOB with excertion; No Wheezing, No Hemoptysis, No Pleuritic Pain, No Sputum; Other (SOB at rest) Gastrointestinal: No Nausea, No Vomiting, No Abdominal Pain, No Diarrhea, No Constipation, No Melena, No Hematochezia, No Other Genitourinary: No Dysuria, No Frequency, No Incontinence, No Hematuria, No Retention, No Other Musculoskeletal: No other, No neck pain, No shoulder pain, No arm pain, No back pain, No hand pain, No leg pain, No foot pain Skin: No Rash, No Lesions, No Jaundice, No Bruising; Other (Right foot open wound) Objective Vitals Vital Signs Date Time Temp Pulse Resp B/P (MAP) Pulse Ox O2 Delivery O2 Flow Rate FiO2 11/14/24 09:51 96/58 11/14/24 08:55 97.6 66 18 89 97.6 11/14/24 08:15 Nasal Cannula 4.0 11/14/24 08:15 36 Intake/Output Intake and Output 11/14/24 07:00 Intake Total 850 ml Balance 850 ml Intake Oral 200 ml IV Total 650 ml # Voids 1 Medications Current Medications Medications Dose Ordered Sig/Isha Route Start Time Stop Time Status Last Admin Dose Admin Furosemide 20 mg DAILY IV 11/14/24 10:00 11/14/24 09:51 20 MG Carvedilol 3.125 mg Q12HR PO 11/14/24 10:00 Levalbuterol HCl 0.625 mg Q6HR PRN NEB 11/13/24 23:15 Levothyroxine Sodium 25 mcg QAM@0600 PO 11/14/24 06:00 11/14/24 06:04 25 MCG Atorvastatin Calcium 20 mg HS PO 11/14/24 22:00 Sertraline HCl 50 mg DAILY PO 11/14/24 10:00 11/14/24 09:51 50 MG Sodium Chloride 10 ml Q8HR IV 11/14/24 06:00 11/14/24 06:05 10 ML Acetaminophen/ Hydrocodone Bitart 1 tab Q4HP PRN PO 11/13/24 23:15 11/13/24 23:33 1 TAB Ondansetron HCl 4 mg Q4HP PRN IV 11/13/24 23:15 Docusate Sodium 100 mg BIDPRN PRN PO 11/13/24 23:15 Acetaminophen 650 mg Q6HP PRN PO 11/13/24 23:15 11/14/24 01:25 650 MG Enoxaparin Sodium 60 mg Q12HR SC 11/14/24 10:00 11/14/24 09:52 60 MG Nitroglycerin 0.4 mg Q5MINP PRN SL 11/13/24 23:45 Morphine Sulfate 2 mg Q30M PRN IV 11/13/24 23:45 Laboratory Results Laboratory Tests 11/14/24 05:11 Chemistry Test 11/13/24 17:34 11/14/24 05:11 Albumin 3.3 g/dL (3.2-4.8) 3.0 g/dL (3.2-4.8) L Calcium Level 8.5 mg/dL (8.7-10.4) L 8.2 mg/dL (8.7-10.4) L Total Protein 5.4 g/dL (5.7-8.2) L 5.0 g/dL (5.7-8.2) L Coagulation Test 11/13/24 17:34 D-Dimer, Quantitative 1.45 mg/L FEU (0.0-0.49) H Lipid panel Test 11/13/24 17:34 Lipase 34 U/L (12-53) Cardiac Markers Test 11/13/24 17:34 B-Type Natriuretic Peptide 548.37 pg/mL (0-100) LFT Test 11/13/24 17:34 11/14/24 05:11 Alanine Aminotransferase (ALT) 21 U/L (7-40) 15 U/L (7-40) Alkaline Phosphatase 71 U/L (46-116) 56 U/L (46-116) Aspartate Amino Transferase (AST) 26 U/L (13-40) 19 U/L (13-40) Total Bilirubin 0.2 mg/dL (0.2-1.0) 0.2 mg/dL (0.2-1.0) Labs and/or images reviewed: Labs reviewed by me, Image(s) reviewed by me Assessment/Plan Assessment/Plan Secondary to right lower lobe pneumonia: Rocephin azithromycin Acute hypoxic respiratory failure COPD exacerbation Chronic respiratory failure on home O2 Atrial fibrillation w RVR Acute on chronic CHF exacerbation History of bladder cancer status post chemo possible lung mets AFib HTN Hypothyroidism Depression Elevated troponin Generalized weakness Constipation Peripheral arterial disease Patient is hospice revoked Time spent 70 minutes Advanced care planning time 20 minutes Patient is full code Plan discussed with: Patient Date of Service: November 14, 2024 Billing Provider: DANO MOJICA MD Common Visit Codes: [id number] CARE 30-74 MIN DANO MOJICA MD November 14, 2024 13:13
[2024-11-14] MEDS: cefTRIAXone 1GM/50ML D5W 50 ML IV ONE (15:44)
[2024-11-14] MEDS: AZITHROMYCIN 500MG/ 250ML 250 ML IV ONE (15:44)
[2024-11-14] MEDS: ATORVASTATIN 20 MG TAB PO SCH (21:12)
[2024-11-14] MEDS: LORazepam 0.5 MG TAB PO PRN (21:13)
[2024-11-15] VITALS (23 sets, daily range): BP systolic 79–137; BP diastolic 45–73; PULSE 45–122; RESP 12–19; TEMP 97.6–97.8; O2SAT 90–100
[2024-11-15 06:57] LABS: Alanine Aminotransferase 17 U/L (7-40); Alkaline Phosphatase 58 U/L (46-116); Anion Gap 5 (5-15); Aspartate Aminotransferase 19 U/L (13-40); BUN/Creatinine Ratio 17.5 (10.0-20.0); Blood Urea Nitrogen 14 mg/dL (9-23); Sodium 139 mmol/L (136-145)
[2024-11-15 06:59] LABS: Basophils # (auto) 0 10 ^3/uL (0-0.2); Eosinophils # (auto) 0.1 10 ^3/uL (0-0.8); Lymphocytes # (auto) 1.4 10 ^3/uL (0.4-5.4); Monocytes # (auto) 0.4 10 ^3/uL (0-1.3); White Blood Cell 5.5 10^3/uL (4.4-10.8)
[2024-11-15 07:01] LABS: Basophils % (auto) 0.7 % (0.0-2.0); Eosinophils % (auto) 1.5 % (0.0-7.0); Hematocrit 21.9 % (36.0-46.0); Hemoglobin 7.3 g/dL (12.2-16.2); Mean Corpuscular Hemoglobin 31.8 pg (28.0-32.0); Mean Corpuscular Hgb Conc. 33.6 g/dL (32.0-36.0); Mean Corpuscular Volume 94.7 fL (80.0-100.0); Neutrophils # (auto) 3.6 10 ^3/uL (1.6-8.6); Neutrophils % (auto) 64.8 % (37.0-80.0); Platelet Count (auto) 173 10^3/uL (140-450); Red Blood Cells 2.31 10^6/uL (4.0-5.20); Red Cell Distribution Width 17.8 % (11.8-14.3)
[2024-11-15 07:07] LABS: Albumin 3.1 g/dL (3.2-4.8); Bilirubin, Total 0.2 mg/dL (0.2-1.0); Carbon Dioxide 38 mmol/L (20-31); Chloride 96 mmol/L (98-107); Glucose 68 mg/dL (74-106); Potassium 3.1 mmol/L (3.5-5.1); Total Protein 5.3 g/dL (5.7-8.2)
[2024-11-15] MEDS: LEVALBUTEROL HCL 1.25 MG/3 ML NEB NEB PRN (09:48)
--- NOTE | 2024-11-15 09:50 | DVHPN2 ---
Reviewed: Care Plan, H&P, Labs, Medications, Previous Orders, Radiology Changes from previous H/P or p: No Changes Eyes: No Pain, No Vision change, No Conjunctivae inflammation, No Eyelid inflammation, No Other, No Redness ENT: No Ear pain, No Ear discharge, No Nose pain, No Nose discharge, No Nose congestion, No Mouth pain, No Mouth swelling, No Throat pain, No Throat swelling, No Other Cardiovascular: No Chest Pain, No Palpitations, No Orthopnea, No Paroxysmal Noc. Dyspnea, No Edema, No Lt Headedness, No Other Respiratory: No Cough, No Dry; Shortness of breath, SOB with excertion; No Wheezing, No Hemoptysis, No Pleuritic Pain, No Sputum; Other (SOB at rest) Gastrointestinal: No Nausea, No Vomiting, No Abdominal Pain, No Diarrhea, No Constipation, No Melena, No Hematochezia, No Other Genitourinary: No Dysuria, No Frequency, No Incontinence, No Hematuria, No Retention, No Other Musculoskeletal: No other, No neck pain, No shoulder pain, No arm pain, No back pain, No hand pain, No leg pain, No foot pain Skin: No Rash, No Lesions, No Jaundice, No Bruising; Other (Right foot open wound) Objective Vitals Vital Signs Date Time Temp Pulse Resp B/P (MAP) Pulse Ox O2 Delivery O2 Flow Rate FiO2 11/15/24 08:51 97.6 45 16 95/53 (67) 90 97.6 11/15/24 00:40 Nasal Cannula* 4 36 Intake/Output Intake and Output 11/15/24 07:00 Intake Total 800 ml Output Total 300 ml Balance 500 ml Intake Oral 800 ml Output Urine Total 300 ml Medications Current Medications Medications Dose Ordered Sig/Isha Route Start Time Stop Time Status Last Admin Dose Admin Furosemide 20 mg DAILY IV 11/14/24 10:00 11/14/24 09:51 20 MG Carvedilol 3.125 mg Q12HR PO 11/14/24 10:00 Levalbuterol HCl 0.625 mg Q6HR PRN NEB 11/13/24 23:15 Levothyroxine Sodium 25 mcg QAM@0600 PO 11/14/24 06:00 11/15/24 05:50 25 MCG Atorvastatin Calcium 20 mg HS PO 11/14/24 22:00 11/14/24 21:12 20 MG Sertraline HCl 50 mg DAILY PO 11/14/24 10:00 11/14/24 09:51 50 MG Sodium Chloride 10 ml Q8HR IV 11/14/24 06:00 11/15/24 05:51 10 ML Acetaminophen/ Hydrocodone Bitart 1 tab Q4HP PRN PO 11/13/24 23:15 11/14/24 15:56 1 TAB Ondansetron HCl 4 mg Q4HP PRN IV 11/13/24 23:15 Docusate Sodium 100 mg BIDPRN PRN PO 11/13/24 23:15 Acetaminophen 650 mg Q6HP PRN PO 11/13/24 23:15 11/14/24 01:25 650 MG Enoxaparin Sodium 60 mg Q12HR SC 11/14/24 10:00 11/14/24 21:13 60 MG Nitroglycerin 0.4 mg Q5MINP PRN SL 11/13/24 23:45 Morphine Sulfate 2 mg Q30M PRN IV 11/13/24 23:45 Ceftriaxone Sodium 50 ml @ 100 mls/hr DAILY@09 IV 11/15/24 09:00 Azithromycin 250 ml @ 125 mls/hr DAILY IV 11/15/24 10:00 Lorazepam 1 mg Q6HP PRN PO 11/14/24 16:15 11/14/24 21:13 1 MG Laboratory Results Laboratory Tests 11/15/24 05:03 Chemistry Test 11/15/24 05:03 Albumin 3.1 g/dL (3.2-4.8) L Calcium Level 9.0 mg/dL (8.7-10.4) Total Protein 5.3 g/dL (5.7-8.2) L LFT Test 11/15/24 05:03 Alanine Aminotransferase (ALT) 17 U/L (7-40) Alkaline Phosphatase 58 U/L (46-116) Aspartate Amino Transferase (AST) 19 U/L (13-40) Total Bilirubin 0.2 mg/dL (0.2-1.0) Labs and/or images reviewed: Labs reviewed by me, Image(s) reviewed by me Assessment/Plan Assessment/Plan Sepsis Secondary to right lower lobe pneumonia: Rocephin azithromycin Acute hypoxic respiratory failure PE right lower lobe Lovenox therapeutic dose consult for COPD exacerbation Chronic respiratory failure on home O2 Atrial fibrillation w RVR Acute on chronic CHF exacerbation History of bladder cancer status post chemo possible lung mets AFib HTN Hypothyroidism Depression Elevated troponin Generalized weakness Constipation Peripheral arterial disease Patient is hospice revoked, patient was with [facility] Time spent 70 minutes Advanced care planning time 20 minutes Patient is full code Patient insisting to go home Plan discussed with: Patient My Orders Orders - DANO MOJICA MD Procedure Category Date Status Time Ceftriaxone 1gm/50ml PHA 11/15/24 In Process D5w (Rocephin) 09:00 Azithromycin 500mg/ PHA 11/15/24 In Process 250ml (Zithromax 50 10:00 Blood Culture [place] 11/14/24 In Process 13:13 Lorazepam Tablet PHA 11/14/24 In Process (Ativan Tablet) 16:15 Date of Service: November 15, 2024 Billing Provider: DANO MOJICA MD Common Visit Codes: [id number] CARE 30-74 MIN DANO MOJICA MD November 15, 2024 09:50
[2024-11-15] MEDS: cefTRIAXone 1GM/50ML D5W 50 ML IV SCH (11:07)
[2024-11-15] MEDS: DOCUSATE SOD 100 MG CAP PO PRN (11:10)
[2024-11-15] MEDS ORDERED: SODIUM CHLORIDE 0.9% 1,000 ML IV ONE (11:30)
[2024-11-15] MEDS: SODIUM CHLORIDE 0.9% 1,000 ML IV SCH (11:45)
[2024-11-15] MEDS: POTASSIUM EFFERVESENT TAB 25 MEQ PO ONE (12:21)
[2024-11-15] MEDS: AZITHROMYCIN 500MG/ 250ML 250 ML IV SCH (13:10)
[2024-11-15] MEDS: ONDANSETRON HCL 4 MG/2 ML VIAL IV PRN (16:02)
[2024-11-15 17:39] LABS: Basophils # (auto) 0 10 ^3/uL (0-0.2); Basophils % (auto) 0.4 % (0.0-2.0); Eosinophils # (auto) 0.1 10 ^3/uL (0-0.8); Hemoglobin 7.9 g/dL (12.2-16.2); Monocytes # (auto) 0.6 10 ^3/uL (0-1.3)
[2024-11-15 17:42] LABS: Hematocrit 24.3 % (36.0-46.0); Lymphocytes % (auto) 14.3 % (10.0-50.0); Mean Corpuscular Hemoglobin 31.2 pg (28.0-32.0); Mean Corpuscular Hgb Conc. 32.6 g/dL (32.0-36.0); Mean Corpuscular Volume 95.8 fL (80.0-100.0); Monocytes % (auto) 9.5 % (0.0-12.0); Neutrophils # (auto) 5.1 10 ^3/uL (1.6-8.6); Neutrophils % (auto) 74.8 % (37.0-80.0); Nucleated Red Blood Cells % 0.1 %; Platelet Count (auto) 182 10^3/uL (140-450); Red Blood Cells 2.54 10^6/uL (4.0-5.20); Red Cell Distribution Width 18.5 % (11.8-14.3); White Blood Cell 6.8 10^3/uL (4.4-10.8)
--- NOTE | 2024-11-15 19:26 | DVHINCON2 ---
Date of service: November 15, 2024 Referring Physician Yogesh Ziegler MD Reason for Consultation Acute on chronic hypoxic respiratory failure, pulmonary embolism, pleural effusion History of Present Illness An 79-year-old woman with past medical history of COPD, bladder cancer, CHF, thyroid disease, and hypertension who presented to ED on 11/13/24 with complaint of shortness of breath for the past 3 weeks. Patient reported symptoms progressively worsened with generalized weakness, hypotension with systolic BP in the 80s, bilateral lower extremity edema, open wound under the right foot, and increased work of breathing, prompting ED visit. ED workup showed WBC 7.4, platelets 225, hemoglobin 9.1, hematocrit 27.4, sodium 136, potassium 2.7, BUN 15, creatinine 0.88, glucose 75, lactic acid 2.1, elsie cium 8.5, troponin 23, BNP 548.37, D-dimer 1.45, blood pressure 97/36, heart rate 118 trending down to 78, temperature 97.6 F, O2 saturation 96% on oxygen. CT Angiography revealing thin chronic appearing nonocclusive segmental subsegmental RLL pulmonary emboli with pulmonary atrial hypertension, several bilateral pulmonary nodules measuring up to 1.2 cm, mediastinal or hilar lymp hadenopathy. Patient was admitted for further care. Pulmonary consultation is requested for evaluation and management of acute on chronic hypoxic respiratory failure, pulmonary embolism, and pleural effusion. Review of Systems: 14-point review of systems negative unless otherwise noted above. Past Medical History: Bladder cancer, CHF, COPD, hypothyroidism and hypertension Past Surgical History: Hysterectomy Medications: Reviewed. Allergies: No known drug allergies. Family History: No family history of premature CAD. No family history of lung disorders. Social History: Nonsmoker. No alcohol or illicit drug use. Family History: Alcoholism G8 MOTHER G8 FATHER FH: alcohol abuse G8 FATHER FH: lung cancer G8 MOTHER Allergies: Coded Allergies: Bupropion (Verified Allergy, Severe, 07/14/19) Ciprofloxacin (Verified Allergy, Severe, 07/14/19) Naproxen (Verified Allergy, Intermediate, 09/03/24) RASH Home Meds Reported Medications Hydroxyzine Pamoate (Hydroxyzine Pamoate) 25 Mg Cap, 1 CAP PO TID PRN for ANXIETY for 60 Days, #180 09/04/24 Furosemide (Furosemide) 40 Mg Tab, 1 TAB PO BID for 100 Days, #200 09/04/24 Sbjthcapfuq-Dvmomiahgneo-Kyxox (Trelegy Ellipta 100-62.5-25 Mcg/INH) 1 Aer Aer, 1 PUFF IN DAILY for 30 Days, #60 09/04/24 Ipratropium-Albuterol (COMBIVENT RESPIMAT) Respimat Aer, 1 PUFF IN Q6HR PRN for 30 Days, #4 09/04/24 Potassium Chloride (Potassium Chloride ER) 20 Meq Tab, 1 TAB PO BID for 90 Days, #180 09/04/24 Metolazone (Metolazone) 2.5 Mg Tab, 1 TAB PO DAILY for 90 Days, #90 09/04/24 Levothyroxine Sodium (Levothyroxine Sodium) 25 Mcg Tab, 1 TAB PO DAILY for 90 Days, #90 09/04/24 Sertraline Hcl (Sertraline Hcl) 50 Mg Tab, 1 TAB PO DAILY for 100 Days, #100 09/04/24 Metoprolol Tartrate (Metoprolol Tartrate) 25 Mg Tab, 1 TAB PO BID for 100 Days, #200 09/04/24 Simvastatin (Simvastatin) 20 Mg Tab, 1 TAB PO QPM for 100 Days, #100 07/15/19 Current Medications Current Medications Medications (Trade) Dose Ordered Sig/Isha Route PRN Reason Start Time Stop Time Status Last Admin Atorvastatin Calcium (Lipitor) 20 mg HS PO 11/14/24 22:00 11/14/24 21:12 Ceftriaxone Sodium 50 ml @ 100 mls/hr DAILY@09 IV 11/15/24 09:00 11/15/24 11:07 Azithromycin 250 ml @ 125 mls/hr DAILY IV 11/15/24 10:00 11/15/24 13:10 Potassium Chloride (Klor-Con Tablet) 20 meq DAILY PO 11/16/24 10:00 Sodium Chloride 1,000 ml @ 100 mls/hr Q10H IV 11/15/24 11:45 11/15/24 11:45 Pantoprazole Sodium (Protonix) 40 mg BID IV 11/15/24 22:00 Vital Signs Vital Signs Date Time Temp Pulse Resp B/P (MAP) Pulse Ox O2 Delivery O2 Flow Rate FiO2 11/15/24 19:14 110 18 100 11/15/24 19:09 Nasal Cannula 3.0 11/15/24 19:09 32 11/15/24 18:17 96/60 (72) 11/15/24 08:51 97.6 97.6 Physical Exam Gen.: Patient lying in bed in no apparent distress. On supplemental oxygen. Head: Normocephalic, atraumatic. Eyes: EOMI/PERRLA. Ears: Normal hearing. Normal anatomy. Neck/trachea: Trachea midline, supple. Nose: Normal external anatomy. Mouth: Moist mucous membranes. Chest: Decreased air entry bilaterally. No wheezing or rhonchi. Cardiovascular: Positive S1, positive S2. Regular rate and rhythm. Abdomen: Positive bowel sounds in all 4 quadrants. Soft, non-tender, non- distended. : Deferred. Rectal: Deferred. Skin: Warm, dry. Intact. Extremities: 2+ radial pulses bilaterally. No lower extremity edema. Neuro: Awake, alert, oriented x3. No gross motor or sensory deficits. Cranial nerves II through XII intact. Gait not assessed. Labs/Diagnostic Data Labs Test 11/15/24 17:16 11/15/24 14:04 11/15/24 11:32 11/15/24 05:03 Range/Units White Blood Count 6.8 4.4-10.8 10^3/uL Red Blood Count 2.54 L 4.0-5.20 10^6/uL Hemoglobin 7.9 L 12.2-16.2 g/dL Hematocrit 24.3 #L 36.0-46.0 % Mean Corpuscular Volume 95.8 80.0-100.0 fL Mean Corpuscular Hemoglobin 31.2 28.0-32.0 pg Mean Corpuscular Hemoglobin Concent 32.6 32.0-36.0 g/dL Red Cell Distribution Width 18.5 H 11.8-14.3 % Platelet Count 182 140-450 10^3/uL Mean Platelet Volume 6.4 L 6.9-10.8 fL Neutrophils (%) (Auto) 74.8 37.0-80.0 % Lymphocytes (%) (Auto) 14.3 10.0-50.0 % Monocytes (%) (Auto) 9.5 0.0-12.0 % Eosinophils (%) (Auto) 1.0 0.0-7.0 % Basophils (%) (Auto) 0.4 0.0-2.0 % Neutrophils # (Auto) 5.1 1.6-8.6 10 ^3/uL Lymphocytes # (Auto) 1.0 0.4-5.4 10 ^3/uL Monocytes # (Auto) 0.6 0-1.3 10 ^3/uL Eosinophils # (Auto) 0.1 0-0.8 10 ^3/uL Basophils # (Auto) 0 0-0.2 10 ^3/uL Nucleated Red Blood Cells 0.1 % Lactic Acid Level 1.9 0.4-2.0 mmol/L Stool Occult Blood Positive Negative Stool Occult Blood Sample #3 Negative POC Glucose 91 70-106 mg/dl Sodium Level 139 136-145 mmol/L Potassium Level 3.1 L 3.5-5.1 mmol/L Chloride Level 96 L 98-107 mmol/L Carbon Dioxide Level 38 H 20-31 mmol/L Anion Gap 5 5-15 Blood Urea Nitrogen 14 9-23 mg/dL Creatinine 0.80 0.550-1.02 mg/dL Glomerular Filtration Rate Calc 74 >90 mL/min BUN/Creatinine Ratio 17.5 10.0-20.0 Serum Glucose 68 L 74-106 mg/dL Calcium Level 9.0 8.7-10.4 mg/dL Total Bilirubin 0.2 0.2-1.0 mg/dL Aspartate Amino Transferase (AST) 19 13-40 U/L Alanine Aminotransferase (ALT) 17 7-40 U/L Alkaline Phosphatase 58 46-116 U/L Total Protein 5.3 L 5.7-8.2 g/dL Albumin 3.1 L 3.2-4.8 g/dL Test 11/13/24 20:26 11/13/24 17:34 Range/Units Troponin I High Sensitivity 23 </=34 ng/L D-Dimer, Quantitative 1.45 H 0.0-0.49 mg/L FEU B-Type Natriuretic Peptide 548.37 0-100 pg/mL Lipase 34 12-53 U/L Microbiology Date/Time Source Procedure Growth Status 11/14/24 13:30 Blood Blood Culture - Preliminary NO GROWTH AFTER 24 HOURS OF INCUBATION. Resulted Assessment Impression: Acute on chronic hypoxic respiratory failure Dependence on supplemental oxygen Pulmonary embolism Pleural effusion, trace Atelectasis Chronic obstructive pulmonary disease Plan: Supplemental oxygen 4 LPM NC Titrate to keep O2 sats above 92%. Taper O2 as tolerated. Continue bronchodilators. Continue antibiotics Incentive spirometry CTA on 11/13 revealed thin chronic-appearing nonocclusive segmental and subsegmental right lower lobe pulmonary emboli with e/o pulmonary arterial hypertension. Trace right pleural effusion with mild adjacent pulmonary opacities, likely subsegmental atelectasis or developing pneumonia. Several bilateral pulmonary nodules measuring up to 1.2 cm. Mediastinal or hilar lymphadenopathy noted. Diurese as tolerated Monitor renal function. Monitor electrolytes. Supplement as necessary. Supplement potassium Monitor ins and outs. Note, Lasix was held due to low BP. DVT prophylaxis. Prognosis: Poor given patient's multiple co-morbidities. Rest of plan per hospitalist and other consultants. Thank you Dr. Ziegler, for allowing me to participate in this patient's care. Further recommendations will depend on the patient's clinical course. Please do not hesitate to contact me if you have any questions or concerns. This medical document was created using an electronic medical record system with [employer] computerized dictation system. Although these documentations are being carefully reviewed, there may still be some phonetic and typographical changes. The errors are purely typographical, due to imperfection on the software program, and do not reflect any compromise in the patient's medical care. Plan discussed with: Other (YURIDIA King/Dr. Ziegler) MEGAN MAGAÑA MD November 15, 2024 19:26
--- NOTE | 2024-11-15 20:13 | DVHINCON2 ---
Date of service: November 15, [address] Ziegler Reason for Consultation GI bleeding anemia with CHF COPD and possible pulmonary embolus History of Present Illness This 79-year-old female with a history of bladder cancer congestive heart failure COPD thyroid problems hypertension admitted to the complaints with shortness of breath Patient got worse with severe hypotension and blood pressure varying into the 80s. Patient also has got bilateral leg edema and open wound under the right food. Because of the progressive shortness of breath. CT angiogram were done which showed that there is no necrosis segmental subsegmental right lower lobe pulmonary emboli and bilateral pulmonary nodules. Patient denies any chest pain. Patient has started having blood in the stools and hemoglobin has dropped to 7 g in with black stools and hence the reason for the GI consult patient has got history of hemorrhoids and some some rectal bleeding in the past with the hemorrhoids. But no fresh bleeding now mostly dark tarry stools his hypotensive as well as having black-colored stools. Past Medical History Bladder cancer congestive heart failure COPD hypertension hypothyroidism patient is on home oxygen Past Surgical History Hysterectomy Family History: Alcoholism G8 MOTHER G8 FATHER FH: alcohol abuse G8 FATHER FH: lung cancer G8 MOTHER Family History Noncontributory Social History Denies smoking drug abuse or alcohol abuse Allergies: Coded Allergies: Bupropion (Verified Allergy, Severe, 07/14/19) Ciprofloxacin (Verified Allergy, Severe, 07/14/19) Naproxen (Verified Allergy, Intermediate, 09/03/24) RASH Home Meds Reported Medications Hydroxyzine Pamoate (Hydroxyzine Pamoate) 25 Mg Cap, 1 CAP PO TID PRN for ANXIETY for 60 Days, #180 09/04/24 Furosemide (Furosemide) 40 Mg Tab, 1 TAB PO BID for 100 Days, #200 25 Buoxecjpuwy-Rmagizcwimvk-Bbbno (Trelegy Ellipta 100-62.5-25 Mcg/INH) 1 Aer Aer, 1 PUFF IN DAILY for 30 Days, #60 25 Ipratropium-Albuterol (COMBIVENT RESPIMAT) Respimat Aer, 1 PUFF IN Q6HR PRN for 30 Days, #4 09/04/24 Potassium Chloride (Potassium Chloride ER) 20 Meq Tab, 1 TAB PO BID for 90 Days, #180 25 Metolazone (Metolazone) 2.5 Mg Tab, 1 TAB PO DAILY for 90 Days, #90 09/04/24 Levothyroxine Sodium (Levothyroxine Sodium) 25 Mcg Tab, 1 TAB PO DAILY for 90 Days, #90 09/04/24 Sertraline Hcl (Sertraline Hcl) 50 Mg Tab, 1 TAB PO DAILY for 100 Days, #100 09/04/24 Metoprolol Tartrate (Metoprolol Tartrate) 25 Mg Tab, 1 TAB PO BID for 100 Days, #200 09/04/24 Simvastatin (Simvastatin) 20 Mg Tab, 1 TAB PO QPM for 100 Days, #100 07/15/19 Current Medications Current Medications Medications (Trade) Dose Ordered Sig/Isha Route PRN Reason Start Time Stop Time Status Last Admin Atorvastatin Calcium (Lipitor) 20 mg HS PO 11/14/24 22:00 11/14/24 21:12 Ceftriaxone Sodium 50 ml @ 100 mls/hr DAILY@09 IV 11/15/24 09:00 11/15/24 11:07 Azithromycin 250 ml @ 125 mls/hr DAILY IV 11/15/24 10:00 11/15/24 13:10 Potassium Chloride (Klor-Con Tablet) 20 meq DAILY PO 11/16/24 10:00 Sodium Chloride 1,000 ml @ 100 mls/hr Q10H IV 11/15/24 11:45 11/15/24 11:45 Pantoprazole Sodium (Protonix) 40 mg BID IV 11/15/24 22:00 Review of Systems Noncontributory Vital Signs Vital Signs Date Time Temp Pulse Resp B/P (MAP) Pulse Ox O2 Delivery O2 Flow Rate FiO2 11/15/24 19:27 110 92/51 (65) 11/15/24 19:14 18 100 11/15/24 19:09 Nasal Cannula 3.0 11/15/24 19:09 32 11/15/24 08:51 97.6 97.6 Physical Exam Moderately built and nourished female slightly on the obese side in no acute distress but on oxygen and uncomfortable from the mild dyspnea HEENT examination mild pallor No icterus lungs some rales Cardio Vascular unremarkable Abdomen is soft nontender no masses bowel sounds normal Extremities edema Neuro grossly in tact Labs/Diagnostic Data Labs Test 11/15/24 17:16 11/15/24 14:04 11/15/24 11:32 11/15/24 05:03 Range/Units White Blood Count 6.8 4.4-10.8 10^3/uL Red Blood Count 2.54 L 4.0-5.20 10^6/uL Hemoglobin 7.9 L 12.2-16.2 g/dL Hematocrit 24.3 #L 36.0-46.0 % Mean Corpuscular Volume 95.8 80.0-100.0 fL Mean Corpuscular Hemoglobin 31.2 28.0-32.0 pg Mean Corpuscular Hemoglobin Concent 32.6 32.0-36.0 g/dL Red Cell Distribution Width 18.5 H 11.8-14.3 % Platelet Count 182 140-450 10^3/uL Mean Platelet Volume 6.4 L 6.9-10.8 fL Neutrophils (%) (Auto) 74.8 37.0-80.0 % Lymphocytes (%) (Auto) 14.3 10.0-50.0 % Monocytes (%) (Auto) 9.5 0.0-12.0 % Eosinophils (%) (Auto) 1.0 0.0-7.0 % Basophils (%) (Auto) 0.4 0.0-2.0 % Neutrophils # (Auto) 5.1 1.6-8.6 10 ^3/uL Lymphocytes # (Auto) 1.0 0.4-5.4 10 ^3/uL Monocytes # (Auto) 0.6 0-1.3 10 ^3/uL Eosinophils # (Auto) 0.1 0-0.8 10 ^3/uL Basophils # (Auto) 0 0-0.2 10 ^3/uL Nucleated Red Blood Cells 0.1 % Lactic Acid Level 1.9 0.4-2.0 mmol/L Stool Occult Blood Positive Negative Stool Occult Blood Sample #3 Negative POC Glucose 91 70-106 mg/dl Sodium Level 139 136-145 mmol/L Potassium Level 3.1 L 3.5-5.1 mmol/L Chloride Level 96 L 98-107 mmol/L Carbon Dioxide Level 38 H 20-31 mmol/L Anion Gap 5 5-15 Blood Urea Nitrogen 14 9-23 mg/dL Creatinine 0.80 0.550-1.02 mg/dL Glomerular Filtration Rate Calc 74 >90 mL/min BUN/Creatinine Ratio 17.5 10.0-20.0 Serum Glucose 68 L 74-106 mg/dL Calcium Level 9.0 8.7-10.4 mg/dL Total Bilirubin 0.2 0.2-1.0 mg/dL Aspartate Amino Transferase (AST) 19 13-40 U/L Alanine Aminotransferase (ALT) 17 7-40 U/L Alkaline Phosphatase 58 46-116 U/L Total Protein 5.3 L 5.7-8.2 g/dL Albumin 3.1 L 3.2-4.8 g/dL Test 11/13/24 20:26 11/13/24 17:34 Range/Units Troponin I High Sensitivity 23 </=34 ng/L D-Dimer, Quantitative 1.45 H 0.0-0.49 mg/L FEU B-Type Natriuretic Peptide 548.37 0-100 pg/mL Lipase 34 12-53 U/L Microbiology Date/Time Source Procedure Growth Status 11/14/24 13:30 Blood Blood Culture - Preliminary NO GROWTH AFTER 24 HOURS OF INCUBATION. Resulted Assessment 79-year-old female with a history of bladder cancer congestive heart failure COPD thyroid problems hypertension admitted with complaints of shortness of breath his CT scan of the CT angiogram showed possible psych segmental right lower lobe pulmonary emboli. Patient is on Lovenox patient has started bleeding with dark stools and hemoglobin has dropped to 7.9 g patient needs also of the Lovenox patient has got history of bladder cancer congestive heart failure COPD and hypertension patient is on home oxygen. Clinical impression a GI bleeding possible ulcer disease or gastritis or other pathology to be ruled out Plan/Recommendation Because of the drop in hemoglobin to 7.9 g and blood pressure problems we will recommend EGD evaluation tomorrow morning unless this severe bleeding may need as an emergency. Patient is a very high-risk with home oxygen COPD and possible pulmonary emboli and hence the recommend anesthesia help for the EGD evaluation Procedure risks in the end added benefits all explained to the patient and agreeable Thank you Dr. Gutierrez Plan discussed with: Patient RIDDHI GUTIERREZ MD November 15, 2024 20:13
[2024-11-15] MEDS: PANTOPRAZOLE 40 MG/10 ML VIAL INJ IV SCH (22:10)
--- NOTE | 2024-11-15 22:44 | DVHINCON2 ---
Date of service: November 15, 2024 Referring Physician Toney Reason for Consultation PE History of Present Illness This is an 79 year old female with a past medical history of CHF, COPD, bladder cancer, hypertension who presented to the ED by ambulance with complaints of shortness of breath/generalized weakness x 3 weeks. EMS report of the patient's blood pressure being systolic in the 80s, with bilateral with the edema, and an open wound under the right foot. WBC 7.4, platelets 225, hemoglobin 9.1, hematocrit 27.4, sodium 136, potassium 2.7, BUN 15, creatinine 0.88, glucose 75, lactic acid 2.1, calcium 8.5, troponin 23, BNP 548.37, D-dimer 1.45. Chest x-ray showed NAD. Patient was admitted to the hospital. I am asked to consult on this patient. Family History: Alcoholism G8 MOTHER G8 FATHER FH: alcohol abuse G8 FATHER FH: lung cancer G8 MOTHER Allergies: Coded Allergies: Bupropion (Verified Allergy, Severe, 07/14/19) Ciprofloxacin (Verified Allergy, Severe, 07/14/19) Naproxen (Verified Allergy, Intermediate, 09/03/24) RASH Home Meds Reported Medications Hydroxyzine Pamoate (Hydroxyzine Pamoate) 25 Mg Cap, 1 CAP PO TID PRN for ANXIETY for 60 Days, #180 09/04/24 Furosemide (Furosemide) 40 Mg Tab, 1 TAB PO BID for 100 Days, #200 09/04/24 Irhajodpblq-Lqdoooubljwa-Ataxv (Trelegy Ellipta 100-62.5-25 Mcg/INH) 1 Aer Aer, 1 PUFF IN DAILY for 30 Days, #60 25 Ipratropium-Albuterol (COMBIVENT RESPIMAT) Respimat Aer, 1 PUFF IN Q6HR PRN for 30 Days, #4 25 Potassium Chloride (Potassium Chloride ER) 20 Meq Tab, 1 TAB PO BID for 90 Days, #180 09/04/24 Metolazone (Metolazone) 2.5 Mg Tab, 1 TAB PO DAILY for 90 Days, #90 09/04/24 Levothyroxine Sodium (Levothyroxine Sodium) 25 Mcg Tab, 1 TAB PO DAILY for 90 Days, #90 09/04/24 Sertraline Hcl (Sertraline Hcl) 50 Mg Tab, 1 TAB PO DAILY for 100 Days, #100 09/04/24 Metoprolol Tartrate (Metoprolol Tartrate) 25 Mg Tab, 1 TAB PO BID for 100 Days, #200 09/04/24 Simvastatin (Simvastatin) 20 Mg Tab, 1 TAB PO QPM for 100 Days, #100 07/15/19 Current Medications Current Medications Medications (Trade) Dose Ordered Sig/Isha Route PRN Reason Start Time Stop Time Status Last Admin Atorvastatin Calcium (Lipitor) 20 mg HS PO 11/14/24 22:00 11/14/24 21:12 Ceftriaxone Sodium 50 ml @ 100 mls/hr DAILY@09 IV 11/15/24 09:00 11/15/24 11:07 Azithromycin 250 ml @ 125 mls/hr DAILY IV 11/15/24 10:00 Lorazepam (Ativan Tablet) 1 mg Q6HP PRN PO ANXIETY 11/14/24 16:15 11/14/24 21:13 Potassium Chloride (Klor-Con Tablet) 20 meq DAILY PO 11/16/24 10:00 Sodium Chloride 1,000 ml @ 100 mls/hr Q10H IV 11/15/24 11:45 UNV Review of Systems Constitutional: reports: malaise, weakness; denies: chills, diaphoresis, fatigue, fever, sweats, others EENTM: denies: blurred vision, double vision, ear bleeding, ear discharge, ear drainage, ear pain, ear ringing, eye pain, eye redness, hearing loss, mouth pain, mouth swelling, nasal discharge, nose bleeding, nose congestion, nose pain, photophobia, tearing, throat pain, throat swelling, voice changes, others Respiratory: reports: shortness of breath; denies: cough, hemoptysis, orthopnea, SOB at rest, SOB with excertion, stridor, wheezing, others Cardiovascular: denies: chest pain, dizzy spells, diaphoresis, Dyspnea on exertion, edema, irregular heart beat, left arm pain, lightheadedness, palpitations, PND, syncope, others Gastrointestinal: denies: abdomen distended, abdominal pain, blood streaked bowels, constipated, diarrhea, dysphagia, difficulty swallowing, hematemesis, melena, nausea, poor appetite, poor fluid intake, rectal bleeding, rectal pain, vomiting, others Genitourinary: denies: abnormal vagina bleeding, burning, dyspareunia, dysuria, flank pain, frequency, hematuria, incontinence, pain, , vagina discharge, urgency, others Neurological: denies: dizziness, fainting, headache, left sided numbness, left sided weakness, numbness, paresthesia, pre-existing deficit, right sided numbness, right sided weakness, seizure, speech problems, tingling, tremors, weakness, others Musculoskeletal: denies: back pain, gout, joint pain, joint swelling, muscle pa in, muscle stiffness, neck pain, others Integumetry: denies: bruises, change in color, change in hair/nails, dryness, laceration, lesions, lumps, rash, wounds, others Allergic/Immunocompromised: denies: Difficulty Healing, Frequent Infections, Hives, Itching, others Hematologic/Lymphatic: denies: anemia, blood clots, easy bleeding, easy bruising, swollen glands, others Endocrine: denies: excessive hunger, excessive sweating, excessive thirst, excessive urination, flushing, intolerance to cold, intolerance to heat, unexplained weight gain, unexplained weight loss, others Psychiatric: denies: anxiety, bipolar disorder, depression, hopeless, panic disorder, schizophrenia, sleepless, suicidal, others All Other Systems: Reviewed and Negative Vital Signs Vital Signs Date Time Temp Pulse Resp B/P (MAP) Pulse Ox O2 Delivery O2 Flow Rate FiO2 11/15/24 12:22 110 97/54 (68) 11/15/24 09:56 12 99 11/15/24 09:48 Nasal Cannula* 3 32 11/15/24 08:51 97.6 97.6 Physical Exam GENERAL: Alert and oriented x 3. No acute distress. EYES: PERRL, EOMI. Anicteric. HENT: Moist mucous membranes. LUNGS: Decreased breath sounds. CARDIOVASCULAR: Regular rate and rhythm. ABDOMEN: Soft, nontender and nondistended. EXTREMITIES: +1 pitting edema. NEUROLOGIC: No focal neurological deficits. SKIN: Patient has a large eschar formation under the right heel. Labs/Diagnostic Data Labs Test 11/15/24 11:32 11/15/24 05:03 11/13/24 20:26 11/13/24 19:14 Range/Units POC Glucose 91 70-106 mg/dl White Blood Count 5.5 4.4-10.8 10^3/uL Red Blood Count 2.31 L 4.0-5.20 10^6/uL Hemoglobin 7.3 L 12.2-16.2 g/dL Hematocrit 21.9 L 36.0-46.0 % Mean Corpuscular Volume 94.7 80.0-100.0 fL Mean Corpuscular Hemoglobin 31.8 28.0-32.0 pg Mean Corpuscular Hemoglobin Concent 33.6 32.0-36.0 g/dL Red Cell Distribution Width 17.8 H 11.8-14.3 % Platelet Count 173 140-450 10^3/uL Mean Platelet Volume 6.2 L 6.9-10.8 fL Neutrophils (%) (Auto) 64.8 37.0-80.0 % Lymphocytes (%) (Auto) 25.0 10.0-50.0 % Monocytes (%) (Auto) 8.0 0.0-12.0 % Eosinophils (%) (Auto) 1.5 0.0-7.0 % Basophils (%) (Auto) 0.7 0.0-2.0 % Neutrophils # (Auto) 3.6 1.6-8.6 10 ^3/uL Lymphocytes # (Auto) 1.4 0.4-5.4 10 ^3/uL Monocytes # (Auto) 0.4 0-1.3 10 ^3/uL Eosinophils # (Auto) 0.1 0-0.8 10 ^3/uL Basophils # (Auto) 0 0-0.2 10 ^3/uL Nucleated Red Blood Cells 0.0 % Sodium Level 139 136-145 mmol/L Potassium Level 3.1 L 3.5-5.1 mmol/L Chloride Level 96 L 98-107 mmol/L Carbon Dioxide Level 38 H 20-31 mmol/L Anion Gap 5 5-15 Blood Urea Nitrogen 14 9-23 mg/dL Creatinine 0.80 0.550-1.02 mg/dL Glomerular Filtration Rate Calc 74 >90 mL/min BUN/Creatinine Ratio 17.5 10.0-20.0 Serum Glucose 68 L 74-106 mg/dL Calcium Level 9.0 8.7-10.4 mg/dL Total Bilirubin 0.2 0.2-1.0 mg/dL Aspartate Amino Transferase (AST) 19 13-40 U/L Alanine Aminotransferase (ALT) 17 7-40 U/L Alkaline Phosphatase 58 46-116 U/L Total Protein 5.3 L 5.7-8.2 g/dL Albumin 3.1 L 3.2-4.8 g/dL Troponin I High Sensitivity 23 </=34 ng/L Lactic Acid Level 2.1 *H 0.4-2.0 mmol/L Test 11/13/24 17:34 Range/Units D-Dimer, Quantitative 1.45 H 0.0-0.49 mg/L FEU B-Type Natriuretic Peptide 548.37 0-100 pg/mL Lipase 34 12-53 U/L Assessment Atrial fibrillation with RVR. Sepsis Secondary to right lower lobe pneumonia. Acute hypoxic respiratory failure. PE right lower lobe. COPD exacerbation. Chronic respiratory failure on home O2. Acute on chronic CHF exacerbation. History of bladder cancer status post chemo possible lung mets. HTN. Hypothyroidism. Depression. Elevated troponin. Generalized weakness. Constipation. Peripheral arterial disease. Plan/Recommendation I agree with your ongoing assessment and care of plan. Telemetry reviewed. Morphine and Lapoint for pain management. Lipitor. Coreg. Diuretics with Lasix. IV antibiotics as ordered. GI prophylactics. Additional plan as per the hospital course. A total of 45 minutes was spent reviewing the patient record, examining the patient, making a diagnostic and therapeutic plan, discussing this plan with medical personnel, following up on diagnostic studies and following the patient for clinical stability excluding any and all procedures. At least 50% of this time was spent in direct, [id number] contact. Plan discussed with: Patient TAL QUINONEZ MD November 15, 2024 13:30
[2024-11-16] VITALS (49 sets, daily range): BP systolic 77–131; BP diastolic 43–77; PULSE 78–120; RESP 11–22; TEMP 97.5–99.1; O2SAT 90–100
[2024-11-16 03:53] LABS: Urine Bacteria None Seen /hpf (None Seen); Urine Blood 2+ /uL (Negative); Urine Clarity Clear (Clear); Urine Color Light-Yellow (Yellow); Urine Protein, UAD TRACE (Negative); Urine Squamous Epithelial Cell FEW /hpf (<5); Urine Urobilinogen Normal (Negative); Urine WBC 143 /HPF (0-5)
[2024-11-16 09:55] LABS: Basophils # (auto) 0 10 ^3/uL (0-0.2); Eosinophils # (auto) 0.1 10 ^3/uL (0-0.8); Hematocrit 22.3 % (36.0-46.0); Hemoglobin 7.3 g/dL (12.2-16.2); Lymphocytes # (auto) 0.8 10 ^3/uL (0.4-5.4); Monocytes # (auto) 0.4 10 ^3/uL (0-1.3)
[2024-11-16 09:56] LABS: Basophils % (auto) 0.7 % (0.0-2.0); Lymphocytes % (auto) 13.8 % (10.0-50.0); Mean Corpuscular Hemoglobin 31.4 pg (28.0-32.0); Mean Corpuscular Hgb Conc. 32.9 g/dL (32.0-36.0); Mean Corpuscular Volume 95.7 fL (80.0-100.0); Monocytes % (auto) 6.1 % (0.0-12.0); Neutrophils # (auto) 4.7 10 ^3/uL (1.6-8.6); Neutrophils % (auto) 78.4 % (37.0-80.0); Platelet Count (auto) 166 10^3/uL (140-450); Red Blood Cells 2.33 10^6/uL (4.0-5.20); Red Cell Distribution Width 18.7 % (11.8-14.3)
[2024-11-16] MEDS ORDERED: fentaNYL CITRATE 100 MCG/2 ML VL ONE (10:01)
[2024-11-16] MEDS ORDERED: PROPOFOL 10 MG/ML 20 ML IV ONE (10:01)
[2024-11-16] MEDS ORDERED: ONDANSETRON HCL 4 MG/2 ML VIAL ONE (10:01)
[2024-11-16] MEDS ORDERED: LIDOCAINE 2% (LOCAL ANESTH.) PF 5ml SDV ONE (10:01)
[2024-11-16] MEDS ORDERED: GLYCOPYRROLATE 0.2 MG/ML 1ML VIAL ONE (10:01)
[2024-11-16 10:09] LABS: Alanine Aminotransferase 17 U/L (7-40); Alkaline Phosphatase 56 U/L (46-116); Anion Gap 4 (5-15); Aspartate Aminotransferase 22 U/L (13-40); BUN/Creatinine Ratio 18.2 (10.0-20.0); Blood Urea Nitrogen 12 mg/dL (9-23); Calcium 9.1 mg/dL (8.7-10.4); Chloride 100 mmol/L (98-107); Glucose 81 mg/dL (74-106); Potassium 3.9 mmol/L (3.5-5.1); Sodium 141 mmol/L (136-145)
[2024-11-16 10:10] LABS: Bilirubin, Total 0.2 mg/dL (0.2-1.0); Carbon Dioxide 37 mmol/L (20-31); Total Protein 4.9 g/dL (5.7-8.2)
[2024-11-16 10:14] LABS: INR 1.03 (0.9-1.15); Partial Thromboplastin Time 33.6 SEC (24.5-34.5); Prothrombin Time 10.9 sec (9.3-11.8)
--- NOTE | 2024-11-16 10:34 | DVHPN2 ---
Reviewed: Care Plan, H&P, Labs, Medications, Previous Orders, Radiology Changes from previous H/P or p: No Changes Eyes: No Pain, No Vision change, No Conjunctivae inflammation, No Eyelid inflammation, No Other, No Redness ENT: No Ear pain, No Ear discharge, No Nose pain, No Nose discharge, No Nose congestion, No Mouth pain, No Mouth swelling, No Throat pain, No Throat swelling, No Other Cardiovascular: No Chest Pain, No Palpitations, No Orthopnea, No Paroxysmal Noc. Dyspnea, No Edema, No Lt Headedness, No Other Respiratory: No Cough, No Dry; Shortness of breath, SOB with excertion; No Wheezing, No Hemoptysis, No Pleuritic Pain, No Sputum; Other (SOB at rest) Gastrointestinal: No Nausea, No Vomiting, No Abdominal Pain, No Diarrhea, No Constipation, No Melena, No Hematochezia, No Other Genitourinary: No Dysuria, No Frequency, No Incontinence, No Hematuria, No Retention, No Other Musculoskeletal: No other, No neck pain, No shoulder pain, No arm pain, No back pain, No hand pain, No leg pain, No foot pain Skin: No Rash, No Lesions, No Jaundice, No Bruising; Other (Right foot open wound) Objective Vitals Vital Signs Date Time Temp Pulse Resp B/P (MAP) Pulse Ox O2 Delivery O2 Flow Rate FiO2 11/16/24 08:44 97.5 106 18 93/49 (64) 95 97.5 11/15/24 20:00 Nasal Cannula* 3 32 Intake/Output Intake and Output 11/16/24 07:00 Intake Total 1900 ml Output Total 402 ml Balance 1498 ml Intake Oral 500 ml IV Total 1400 ml Output Urine Total 400 ml Stool Total 2 ml # Voids 2 Medications Current Medications Medications Dose Ordered Sig/Isha Route Start Time Stop Time Status Last Admin Dose Admin Furosemide 20 mg DAILY IV 11/14/24 10:00 11/14/24 09:51 20 MG Carvedilol 3.125 mg Q12HR PO 11/14/24 10:00 Levalbuterol HCl 0.625 mg Q6HR PRN NEB 11/13/24 23:15 11/15/24 19:09 0.625 MG Levothyroxine Sodium 25 mcg QAM@0600 PO 11/14/24 06:00 11/15/24 05:50 25 MCG Atorvastatin Calcium 20 mg HS PO 11/14/24 22:00 11/15/24 22:10 20 MG Sertraline HCl 50 mg DAILY PO 11/14/24 10:00 11/15/24 11:16 50 MG Sodium Chloride 10 ml Q8HR IV 11/14/24 06:00 11/16/24 05:38 10 ML Acetaminophen/ Hydrocodone Bitart 1 tab Q4HP PRN PO 11/13/24 23:15 11/15/24 11:10 1 TAB Ondansetron HCl 4 mg Q4HP PRN IV 11/13/24 23:15 11/15/24 16:02 4 MG Docusate Sodium 100 mg BIDPRN PRN PO 11/13/24 23:15 11/15/24 11:10 100 MG Acetaminophen 650 mg Q6HP PRN PO 11/13/24 23:15 11/14/24 01:25 650 MG Enoxaparin Sodium 60 mg Q12HR SC 11/14/24 10:00 11/15/24 22:11 60 MG Nitroglycerin 0.4 mg Q5MINP PRN SL 11/13/24 23:45 Morphine Sulfate 2 mg Q30M PRN IV 11/13/24 23:45 Ceftriaxone Sodium 50 ml @ 100 mls/hr DAILY@09 IV 11/15/24 09:00 11/15/24 11:07 100 MLS/HR Azithromycin 250 ml @ 125 mls/hr DAILY IV 11/15/24 10:00 11/15/24 13:10 125 MLS/HR Lorazepam 1 mg Q6HP PRN PO 11/14/24 16:15 11/14/24 21:13 1 MG Potassium Chloride 20 meq DAILY PO 11/16/24 10:00 Sodium Chloride 1,000 ml @ 100 mls/hr Q10H IV 11/15/24 11:45 11/16/24 06:14 100 MLS/HR Pantoprazole Sodium 40 mg BID IV 11/15/24 22:00 11/15/24 22:10 40 MG Laboratory Results Laboratory Tests 11/16/24 09:30 Chemistry Test 11/16/24 09:30 Albumin 3.0 g/dL (3.2-4.8) L Calcium Level 9.1 mg/dL (8.7-10.4) Total Protein 4.9 g/dL (5.7-8.2) L Coagulation Test 11/16/24 09:30 Prothrombin Time 10.9 sec (9.3-11.8) Prothrombin Time INR 1.03 (0.9-1.15) Activated Partial Thromboplast Time 33.6 SEC (24.5-34.5) LFT Test 11/16/24 09:30 Alanine Aminotransferase (ALT) 17 U/L (7-40) Alkaline Phosphatase 56 U/L (46-116) Aspartate Amino Transferase (AST) 22 U/L (13-40) Total Bilirubin 0.2 mg/dL (0.2-1.0) Urinalysis Test 11/16/24 04:00 Urine Color Light-yellow (Yellow) Urine Clarity Clear (Clear) Urine pH 6.0 (5.0-9.0) Urine Specific [place] 1.020 (1.001-1.035) Urine Protein Trace (Negative) H Urine Ketones Negative (Negative) Urine Blood 2+ /uL (Negative) H Urine Nitrite Negative (Negative) Urine Bilirubin Negative (Negative) Urine Urobilinogen Normal mg/dL (Negative) Urine Leukocyte Esterase 3+ /uL (Negative) Urine RBC 48 /hpf (0 - 4) Urine Microscopic WBC 143 /HPF (0-5) H Urine Squamous Epithelial Cells Few /hpf (<5) Urine Bacteria None seen /hpf (None Seen) Urine Glucose Normal mg/dL (Normal) Microbiology Microbiology Date/Time Source Procedure Growth Status 11/14/24 13:30 Blood Blood Culture - Preliminary NO GROWTH AFTER 24 HOURS OF INCUBATION. Resulted Labs and/or images reviewed: Labs reviewed by me, Image(s) reviewed by me Assessment/Plan Assessment/Plan Sepsis Secondary to right lower lobe pneumonia: Rocephin azithromycin Acute hypoxic respiratory failure PE right lower lobe Lovenox therapeutic dose consult for appreciated COPD exacerbation Chronic respiratory failure on home O2 AFib with RVR Acute on chronic CHF exacerbation: Consult by cardiology Dr. Guilherme Carballo appreciated History of bladder cancer status post chemo possible lung mets AFib HTN Hypothyroidism Depression Elevated troponin Generalized weakness Constipation Positive stool for occult blood: Patient getting EGD by Peripheral arterial disease Patient is hospice revoked, patient was with [facility] Time spent 50 minutes Advanced care planning time 20 minutes Patient is full code Acute hypotension: IV fluids Plan discussed with: Patient My Orders Orders - MOJICA,DANO M MD Procedure Category Date Status Time * Cardiology Consult CONS 11/15/24 Transmitted 11:28 Sodium Chloride 0.9% PHA 11/15/24 In Process 11:45 Transfer Orders XFER 11/15/24 Transmitted 13:38 Notify Provider NOTICE 11/15/24 Transmitted Malnutrition 13:42 Nutritional NOURISH 11/15/24 Transmitted Supplements 13:42 Dietary NOTICE 11/15/24 Transmitted Recommendations 13:42 * [facility] Manager Rental CONS 11/15/24 Transmitted 15:33 Date of Service: November 16, 2024 Billing Provider: DANO MOJICA MD Common Visit Codes: 09024-[id number] CARE 30-74 MIN DANO MOJICA MD November 16, 2024 10:34
--- NOTE | 2024-11-16 10:38 | DVHOP2 ---
Operative Report DATE OF PROCEDURE: 11/16/24 INDICATIONS FOR THE PROCEDURE: GI bleeding anemia black stools PROCEDURE PERFORMED: 1. Esophagogastroduodenoscopy and biopsy cold biopsy forceps POSTOPERATIVE DIAGNOSIS: Small hiatal hernia Mild antral gastritis biopsies taken with cold biopsy forceps no ulcers no bleeding Mild duodenitis no ulcers no bleeding INFORMED CONSENT: The risks and benefits and alternatives were explained to the patient and informed consent was obtained. PROCEDURE IN DETAIL: The patient was kept NPO after midnight. In the endoscopy room, she was given MAC to get her sedated. Olympus gastroscope was passed through the oropharynx into the stomach and the duodenum, and the findings were as follows. Esophagus: Less than 1 cm hiatal hernia No Esophagitis No Esophageal ulcer No Esophageal stricture No varices No bleeding Stomach: Fundus: Retroflexed and visualized normal Body and antrum very mild erythema in the antrum suggestive of mild gastritis no bleeding seen no ulcers biopsies taken to ensure there was no H pylori or other pathology Pylorus normal Duodenum Mild duodenitis in the bulb and postbulbar area active bleeding no ulcers Endoscopic impression Small hiatal hernia Mild gastritis Mild duodenitis No ulcers no bleeding seen Unable to explain the bleeding in the anemia from this study Suggestions Await the biopsy Treat with PPIs. Follow hemoglobin and transfuse as necessary We will recommend a CT angiogram of the abdomen and pelvis Urology consult for the bladder tumor If bleeding persist we will recommend Radiology consult for angiogram and further intervention Thank you for asking me to take part in the care of this pleasant patient Dr. De León ENDOSCOPIC IMPRESSION: SUGGESTIONS: With warm regards, RIDDHI DE LEÓN MD November 16, 2024 10:38
[2024-11-16] MEDS: POTASSIUM CHL 20 Meq TABLET PO SCH (11:40)
[2024-11-16] MEDS: NOREPINEPHRINE 8 MG/250ML KIT 250 ML IV SCH (21:43)
--- NOTE | 2024-11-16 22:40 | DVHPN2 ---
Progress Note - Dictate Date Seen: November 16, 2024 Medical Necessity Reason Pt with a Central, PICC or Fol: No Subjective Patient was seen and evaluated in follow up in the ICU. This evening patients developed hypotension with drop in H&H and was transferred to the ICU. Patient started on Levophed drip and PRBC transfusion. Patient is s/ esophagogastroduodenoscopy which revealed small hiatal hernia, mild antral gastritis, no ulcers no bleeding, mild duodenitis no ulcers no bleeding. HGB 7.3, HCT 22.3, CO2 37. Telemetry reviewed. vital signs Vital Sign Date Time Temp Pulse Resp B/P (MAP) Pulse Ox O2 Delivery O2 Flow Rate FiO2 11/16/24 12:40 97.6 94 18 100/58 (72) 100 97.6 11/16/24 11:53 Nasal Cannula 3.0 11/16/24 11:53 32 Total Intake and Output 11/15/24 11/15/24 11/16/24 15:00 23:00 07:00 Intake Total 50 ml 650 ml 1200 ml Output Total 402 ml Balance 50 ml 248 ml 1200 ml medications Current Medications Medications Dose Ordered Sig/Isha Route Start Time Stop Time Status Last Admin Dose Admin Furosemide 20 mg DAILY IV 11/14/24 10:00 11/14/24 09:51 20 MG Carvedilol 3.125 mg Q12HR PO 11/14/24 10:00 Levalbuterol HCl 0.625 mg Q6HR PRN NEB 11/13/24 23:15 11/15/24 19:09 0.625 MG Levothyroxine Sodium 25 mcg QAM@0600 PO 11/14/24 06:00 11/15/24 05:50 25 MCG Atorvastatin Calcium 20 mg HS PO 11/14/24 22:00 11/15/24 22:10 20 MG Sertraline HCl 50 mg DAILY PO 11/14/24 10:00 11/16/24 11:40 50 MG Sodium Chloride 10 ml Q8HR IV 11/14/24 06:00 11/16/24 05:38 10 ML Acetaminophen/ Hydrocodone Bitart 1 tab Q4HP PRN PO 11/13/24 23:15 11/15/24 11:10 1 TAB Ondansetron HCl 4 mg Q4HP PRN IV 11/13/24 23:15 11/15/24 16:02 4 MG Docusate Sodium 100 mg BIDPRN PRN PO 11/13/24 23:15 11/15/24 11:10 100 MG Acetaminophen 650 mg Q6HP PRN PO 11/13/24 23:15 11/14/24 01:25 650 MG Enoxaparin Sodium 60 mg Q12HR SC 11/14/24 10:00 11/15/24 22:11 60 MG Nitroglycerin 0.4 mg Q5MINP PRN SL 11/13/24 23:45 Morphine Sulfate 2 mg Q30M PRN IV 11/13/24 23:45 Ceftriaxone Sodium 50 ml @ 100 mls/hr DAILY@09 IV 11/15/24 09:00 11/16/24 11:41 100 MLS/HR Azithromycin 250 ml @ 125 mls/hr DAILY IV 11/15/24 10:00 11/16/24 13:07 125 MLS/HR Lorazepam 1 mg Q6HP PRN PO 11/14/24 16:15 11/14/24 21:13 1 MG Potassium Chloride 20 meq DAILY PO 11/16/24 10:00 11/16/24 11:40 20 MEQ Sodium Chloride 1,000 ml @ 100 mls/hr Q10H IV 11/15/24 11:45 11/16/24 06:14 100 MLS/HR Pantoprazole Sodium 40 mg BID IV 11/15/24 22:00 11/16/24 11:41 40 MG objective GENERAL: Alert and oriented x 3. No acute distress. EYES: PERRL, EOMI. Anicteric. HENT: Moist mucous membranes. LUNGS: Decreased breath sounds. CARDIOVASCULAR: Regular rate and rhythm. ABDOMEN: Soft, nontender and nondistended. EXTREMITIES: +1 pitting edema. NEUROLOGIC: No focal neurological deficits. SKIN: Patient has a large eschar formation under the right heel. laboratory and microbiology Laboratory Tests 11/16/24 09:30 Test 11/16/24 09:30 Range/Units Serum Glucose 81 74-106 mg/dL Problem List Atrial fibrillation with RVR. Sepsis Secondary to right lower lobe pneumonia. Acute hypoxic respiratory failure. PE right lower lobe. COPD exacerbation. Chronic respiratory failure on home O2. Acute on chronic CHF exacerbation. History of bladder cancer status post chemo possible lung mets. HTN. Hypothyroidism. Depression. Elevated troponin. Generalized weakness. Constipation. Peripheral arterial disease. Assessment/Plan Continued all current supportive medical care. Echocardiogram. Morphine and [place] for pain management. Lipitor. IV antibiotics as ordered. DVT and GI prophylactics. Vasopressors for hemodynamic support. Additional plan as per the hospital course. Critical care time of 45 minutes provided to include time spent evaluation of patient at bedside, when appropriate patient/family education for diagnosis, treatment plan, review of pertinent medical information and discussion of care with specialty providers and PCP. Dietary Evaluation Review Recommendations by RD: Protein Supplementation Comments: 1) Initiate James @ 1 pk bid 2) Initiate multivitamin @ 1 tab qd 3) Initiate vitamin C @ 500 mg bid and zinc sulfate @ 220 mg qd for 7-10 days 4) Continue to encourage optimal PO intake 5) Follow-up with cardiology, pulmonology, and oncology/hematology 6) Continue to monitor I&O, labs, and skin integrity Expected Outcomes/Goals: 1) appetite and labs to improve 2) wounds to improve 3) f/u in 3-5 days Plan discussed with: Patient TAL QUINONEZ MD November 16, 2024 13:23
--- NOTE | 2024-11-16 22:50 | DVHPN2 ---
Progress Note - Dictate Date Seen: November 16, 2024 Medical Necessity Reason Pt with a Central, PICC or Fol: No Subjective Patient seen and examined at bedside. Remains on supplemental oxygen Overnight events reviewed. vital signs Vital Sign Date Time Temp Pulse Resp B/P (MAP) Pulse Ox O2 Delivery O2 Flow Rate FiO2 11/16/24 21:43 82/48 11/16/24 20:41 97.9 104 16 95 97.9 11/16/24 20:22 Nasal Cannula* 3 32 Total Intake and Output 11/15/24 11/15/24 11/16/24 15:00 23:00 07:00 Intake Total 50 ml 650 ml 1200 ml Output Total 402 ml Balance 50 ml 248 ml 1200 ml medications Current Medications Medications Dose Ordered Sig/Isha Route Start Time Stop Time Status Last Admin Dose Admin Levalbuterol HCl 0.625 mg Q6HR PRN NEB 11/13/24 23:15 11/16/24 22:48 0.625 MG Levothyroxine Sodium 25 mcg QAM@0600 PO 11/14/24 06:00 11/15/24 05:50 25 MCG Atorvastatin Calcium 20 mg HS PO 11/14/24 22:00 11/15/24 22:10 20 MG Sertraline HCl 50 mg DAILY PO 11/14/24 10:00 11/16/24 11:40 50 MG Sodium Chloride 10 ml Q8HR IV 11/14/24 06:00 11/16/24 14:36 10 ML Acetaminophen/ Hydrocodone Bitart 1 tab Q4HP PRN PO 11/13/24 23:15 11/15/24 11:10 1 TAB Ondansetron HCl 4 mg Q4HP PRN IV 11/13/24 23:15 11/15/24 16:02 4 MG Docusate Sodium 100 mg BIDPRN PRN PO 11/13/24 23:15 11/15/24 11:10 100 MG Acetaminophen 650 mg Q6HP PRN PO 11/13/24 23:15 11/16/24 14:35 650 MG Enoxaparin Sodium 60 mg Q12HR SC 11/14/24 10:00 11/15/24 22:11 60 MG Nitroglycerin 0.4 mg Q5MINP PRN SL 11/13/24 23:45 Morphine Sulfate 2 mg Q30M PRN IV 11/13/24 23:45 Ceftriaxone Sodium 50 ml @ 100 mls/hr DAILY@09 IV 11/15/24 09:00 11/16/24 11:41 100 MLS/HR Azithromycin 250 ml @ 125 mls/hr DAILY IV 11/15/24 10:00 11/16/24 13:07 125 MLS/HR Lorazepam 1 mg Q6HP PRN PO 11/14/24 16:15 11/14/24 21:13 1 MG Potassium Chloride 20 meq DAILY PO 11/16/24 10:00 11/16/24 11:40 20 MEQ Sodium Chloride 1,000 ml @ 100 mls/hr Q10H IV 11/15/24 11:45 11/16/24 06:14 100 MLS/HR Pantoprazole Sodium 40 mg BID IV 11/15/24 22:00 11/16/24 11:41 40 MG Norepinephrine Bitartrate 250 ml @ 3.75 mls/hr Q24H IV 11/16/24 19:00 11/16/24 21:43 3.75 MLS/HR objective Gen.: Patient lying in bed in no apparent distress. On supplemental oxygen. Head: Normocephalic, atraumatic. Eyes: EOMI/PERRLA. Ears: Normal hearing. Normal anatomy. Neck/trachea: Trachea midline, supple. Nose: Normal external anatomy. Mouth: Moist mucous membranes. Chest: Decreased air entry bilaterally. No wheezing or rhonchi. Cardiovascular: Positive S1, positive S2. Regular rate and rhythm. Abdomen: Positive bowel sounds in all 4 quadrants. Soft, non-tender, non- distended. : Deferred. Rectal: Deferred. Skin: Warm, dry. Intact. Extremities: 2+ radial pulses bilaterally. No lower extremity edema. Neuro: Awake, alert, oriented x3. No gross motor or sensory deficits. Cranial nerves II through XII intact. Gait not assessed. laboratory and microbiology Laboratory Tests 11/16/24 09:30 Test 11/16/24 09:30 Range/Units Serum Glucose 81 74-106 mg/dL Assessment/Plan Impression: Acute on chronic hypoxic respiratory failure Dependence on supplemental oxygen Pulmonary embolism Pleural effusion, trace Atelectasis Chronic obstructive pulmonary disease Events: Remains on supplemental oxygen, 3 LPM NC Taper O2 as tolerated Plan for EGD by GI Follow up GI recommendations Monitor blood pressure Monitor hemoglobin - currently 7.3 g/dL Transfuse if less than 7.0 g/dL. Bronchodilators PRN (Xopenex) Continue antibiotics Incentive spirometry Lovenox for PE. Labs and imaging reviewed. Rest of plan as noted below. Plan: Supplemental oxygen Titrate to keep O2 sats above 92%. Continue bronchodilators. Continue antibiotics Incentive spirometry CTA on 11/13 revealed thin chronic-appearing nonocclusive segmental and subsegmental right lower lobe pulmonary emboli with e/o pulmonary arterial hypertension. Trace right pleural effusion with mild adjacent pulmonary opacities, likely subsegmental atelectasis or developing pneumonia. Several bilateral pulmonary nodules measuring up to 1.2 cm. Mediastinal or hilar lymphadenopathy noted. Diurese as tolerated Monitor renal function. Monitor electrolytes. Supplement as necessary. Supplement potassium Monitor ins and outs. Note, Lasix was held due to low BP. DVT prophylaxis. Prognosis: Poor given patient's multiple co-morbidities. Rest of plan per hospitalist and other consultants. Thank you Dr. Ziegler, for allowing me to participate in this patient's care. Further recommendations will depend on the patient's clinical course. Please do not hesitate to contact me if you have any questions or concerns. This medical document was created using an electronic medical record system with [employer] computerized dictation system. Although these documentations are being carefully reviewed, there may still be some phonetic and typographical changes. The errors are purely typographical, due to imperfection on the software program, and do not reflect any compromise in the patient's medical care. Dietary Evaluation Review Recommendations by RD: Protein Supplementation Comments: 1) Initiate James @ 1 pk bid 2) Initiate multivitamin @ 1 tab qd 3) Initiate vitamin C @ 500 mg bid and zinc sulfate @ 220 mg qd for 7-10 days 4) Continue to encourage optimal PO intake 5) Follow-up with cardiology, pulmonology, and oncology/hematology 6) Continue to monitor I&O, labs, and skin integrity Expected Outcomes/Goals: 1) appetite and labs to improve 2) wounds to improve 3) f/u in 3-5 days Plan discussed with: Patient, Other (RN Christine) CC Plasma Assessment Blood Product Administration S: 2010 MEGAN MAGAÑA MD November 16, 2024 22:50
[2024-11-17] VITALS (50 sets, daily range): BP systolic 89–150; BP diastolic 51–97; PULSE 92–111; RESP 11–22; TEMP 97.3–98.5; O2SAT 12–100
[2024-11-17 04:14] LABS: Basophils # (auto) 0 10 ^3/uL (0-0.2); Basophils % (auto) 0.6 % (0.0-2.0); Eosinophils # (auto) 0 10 ^3/uL (0-0.8); Hemoglobin 8.1 g/dL (12.2-16.2); Lymphocytes # (auto) 0.8 10 ^3/uL (0.4-5.4); Monocytes # (auto) 0.5 10 ^3/uL (0-1.3); Monocytes % (auto) 6.2 % (0.0-12.0); Neutrophils # (auto) 6.7 10 ^3/uL (1.6-8.6); Red Cell Distribution Width 19.3 % (11.8-14.3)
[2024-11-17 04:15] LABS: Hematocrit 24.4 % (36.0-46.0); Lymphocytes % (auto) 10.3 % (10.0-50.0); Mean Corpuscular Hemoglobin 30.7 pg (28.0-32.0); Mean Corpuscular Hgb Conc. 33.3 g/dL (32.0-36.0); Mean Corpuscular Volume 92.3 fL (80.0-100.0); Neutrophils % (auto) 82.9 % (37.0-80.0); Platelet Count (auto) 173 10^3/uL (140-450); Red Blood Cells 2.64 10^6/uL (4.0-5.20); White Blood Cell 8.1 10^3/uL (4.4-10.8)
[2024-11-17 04:45] LABS: Alanine Aminotransferase 13 U/L (7-40); Albumin 3.3 g/dL (3.2-4.8); Alkaline Phosphatase 54 U/L (46-116); Anion Gap 6 (5-15); Aspartate Aminotransferase 20 U/L (13-40); Bilirubin, Total 0.3 mg/dL (0.2-1.0); Blood Urea Nitrogen 13 mg/dL (9-23); Calcium 9.1 mg/dL (8.7-10.4); Chloride 99 mmol/L (98-107); Glucose 92 mg/dL (74-106); Potassium 4.1 mmol/L (3.5-5.1); Sodium 137 mmol/L (136-145)
[2024-11-17 05:02] LABS: Carbon Dioxide 32 mmol/L (20-31)
[2024-11-17 05:03] LABS: Total Protein 5.4 g/dL (5.7-8.2)
[2024-11-17 11:12] LABS: COVID19 ANTIGEN SOFIA FIA NEGATIVE (NEGATIVE)
[2024-11-17 11:13] LABS: Rapid Influenza A Negative (Negative); Rapid Influenza B Negative (Negative)
--- NOTE | 2024-11-17 11:14 | DVHPN2 ---
Progress Note - Dictate Date Seen: November 17, 2024 Medical Necessity Reason Pt with a Central, PICC or Fol: No vital signs Vital Sign Date Time Temp Pulse Resp B/P (MAP) Pulse Ox O2 Delivery O2 Flow Rate FiO2 11/17/24 06:45 100 17 136/70 (92) 100 11/17/24 06:10 Nasal Cannula* 4 36 11/17/24 04:00 98.5 98.5 Total Intake and Output 11/16/24 11/16/24 11/17/24 15:00 23:00 07:00 Intake Total 50 ml 553.75 ml 900 ml Balance 50 ml 553.75 ml 900 ml medications Current Medications Medications Dose Ordered Sig/Isha Route Start Time Stop Time Status Last Admin Dose Admin Levalbuterol HCl 0.625 mg Q6HR PRN NEB 11/13/24 23:15 11/16/24 22:48 0.625 MG Levothyroxine Sodium 25 mcg QAM@0600 PO 11/14/24 06:00 11/17/24 06:00 25 MCG Atorvastatin Calcium 20 mg HS PO 11/14/24 22:00 11/16/24 23:05 20 MG Sertraline HCl 50 mg DAILY PO 11/14/24 10:00 11/17/24 10:21 50 MG Sodium Chloride 10 ml Q8HR IV 11/14/24 06:00 11/17/24 06:00 10 ML Acetaminophen/ Hydrocodone Bitart 1 tab Q4HP PRN PO 11/13/24 23:15 11/17/24 00:53 1 TAB Ondansetron HCl 4 mg Q4HP PRN IV 11/13/24 23:15 11/16/24 22:57 4 MG Docusate Sodium 100 mg BIDPRN PRN PO 11/13/24 23:15 11/15/24 11:10 100 MG Acetaminophen 650 mg Q6HP PRN PO 11/13/24 23:15 11/16/24 14:35 650 MG Enoxaparin Sodium 60 mg Q12HR SC 11/14/24 10:00 11/17/24 10:22 60 MG Nitroglycerin 0.4 mg Q5MINP PRN SL 11/13/24 23:45 Morphine Sulfate 2 mg Q30M PRN IV 11/13/24 23:45 Ceftriaxone Sodium 50 ml @ 100 mls/hr DAILY@09 IV 11/15/24 09:00 11/17/24 08:50 100 MLS/HR Azithromycin 250 ml @ 125 mls/hr DAILY IV 11/15/24 10:00 11/17/24 10:55 125 MLS/HR Lorazepam 1 mg Q6HP PRN PO 11/14/24 16:15 11/16/24 23:42 1 MG Potassium Chloride 20 meq DAILY PO 11/16/24 10:00 11/17/24 10:22 20 MEQ Sodium Chloride 1,000 ml @ 100 mls/hr Q10H IV 11/15/24 11:45 11/16/24 06:14 100 MLS/HR Pantoprazole Sodium 40 mg BID IV 11/15/24 22:00 11/17/24 10:21 40 MG Norepinephrine Bitartrate 250 ml @ 3.75 mls/hr Q24H IV 11/16/24 19:00 11/16/24 21:43 3.75 MLS/HR laboratory and microbiology Laboratory Tests 11/17/24 03:56 Test 11/17/24 03:56 Range/Units Serum Glucose 92 74-106 mg/dL Assessment/Plan Impression: Acute on chronic hypoxic respiratory failure Pulmonary embolism Pleural effusion, trace Atelectasis COPD Events: Low oxygen requirements On 3 liters nasal cannula No acute events Labs and imaging reviewed Plan: Supplemental oxygen Titrate to keep O2 sats above 92%. Incentive spirometry Continue antibiotics F/u cultures Bronchodilators Monitor renal function Monitor electrolytes Supplement as necessary DVT prophylaxis Dietary Evaluation Review Recommendations by RD: Protein Supplementation Comments: 1) Initiate James @ 1 pk bid 2) Initiate multivitamin @ 1 tab qd 3) Initiate vitamin C @ 500 mg bid and zinc sulfate @ 220 mg qd for 7-10 days 4) Continue to encourage optimal PO intake 5) Follow-up with cardiology, pulmonology, and oncology/hematology 6) Continue to monitor I&O, labs, and skin integrity Expected Outcomes/Goals: 1) appetite and labs to improve 2) wounds to improve 3) f/u in 3-5 days Plan discussed with: Patient CC Plasma Assessment Blood Product Administration S: 2010 JOHAN DUQUE MD November 17, 2024 11:13
--- NOTE | 2024-11-17 12:57 | DVHPN2 ---
Reviewed: Care Plan, H&P, Labs, Medications, Previous Orders, Radiology Changes from previous H/P or p: No Changes Eyes: No Pain, No Vision change, No Conjunctivae inflammation, No Eyelid inflammation, No Other, No Redness ENT: No Ear pain, No Ear discharge, No Nose pain, No Nose discharge, No Nose congestion, No Mouth pain, No Mouth swelling, No Throat pain, No Throat swelling, No Other Cardiovascular: No Chest Pain, No Palpitations, No Orthopnea, No Paroxysmal Noc. Dyspnea, No Edema, No Lt Headedness, No Other Respiratory: No Cough, No Dry; Shortness of breath, SOB with excertion; No Wheezing, No Hemoptysis, No Pleuritic Pain, No Sputum; Other (SOB at rest) Gastrointestinal: No Nausea, No Vomiting, No Abdominal Pain, No Diarrhea, No Constipation, No Melena, No Hematochezia, No Other Genitourinary: No Dysuria, No Frequency, No Incontinence, No Hematuria, No Retention, No Other Musculoskeletal: No other, No neck pain, No shoulder pain, No arm pain, No back pain, No hand pain, No leg pain, No foot pain Skin: No Rash, No Lesions, No Jaundice, No Bruising; Other (Right foot open wound) Objective Vitals Vital Signs Date Time Temp Pulse Resp B/P (MAP) Pulse Ox O2 Delivery O2 Flow Rate FiO2 11/17/24 11:00 106 18 110/67 (81) 11/17/24 10:00 100 Nasal Cannula* 4 36 11/17/24 08:00 97.9 97.9 Intake/Output Intake and Output 11/17/24 07:00 Intake Total 1503.75 ml Balance 1503.75 ml Intake Oral 900 ml IV Total 303.75 ml Blood Product 300 ml # Voids 3 Medications Current Medications Medications Dose Ordered Sig/Isha Route Start Time Stop Time Status Last Admin Dose Admin Levalbuterol HCl 0.625 mg Q6HR PRN NEB 11/13/24 23:15 11/16/24 22:48 0.625 MG Levothyroxine Sodium 25 mcg QAM@0600 PO 11/14/24 06:00 11/17/24 06:00 25 MCG Atorvastatin Calcium 20 mg HS PO 11/14/24 22:00 11/16/24 23:05 20 MG Sertraline HCl 50 mg DAILY PO 11/14/24 10:00 11/17/24 10:21 50 MG Sodium Chloride 10 ml Q8HR IV 11/14/24 06:00 11/17/24 06:00 10 ML Acetaminophen/ Hydrocodone Bitart 1 tab Q4HP PRN PO 11/13/24 23:15 11/17/24 00:53 1 TAB Ondansetron HCl 4 mg Q4HP PRN IV 11/13/24 23:15 11/16/24 22:57 4 MG Docusate Sodium 100 mg BIDPRN PRN PO 11/13/24 23:15 11/15/24 11:10 100 MG Acetaminophen 650 mg Q6HP PRN PO 11/13/24 23:15 11/16/24 14:35 650 MG Enoxaparin Sodium 60 mg Q12HR SC 11/14/24 10:00 11/17/24 10:22 60 MG Nitroglycerin 0.4 mg Q5MINP PRN SL 11/13/24 23:45 Morphine Sulfate 2 mg Q30M PRN IV 11/13/24 23:45 Ceftriaxone Sodium 50 ml @ 100 mls/hr DAILY@09 IV 11/15/24 09:00 11/17/24 08:50 100 MLS/HR Azithromycin 250 ml @ 125 mls/hr DAILY IV 11/15/24 10:00 11/17/24 10:55 125 MLS/HR Lorazepam 1 mg Q6HP PRN PO 11/14/24 16:15 11/16/24 23:42 1 MG Potassium Chloride 20 meq DAILY PO 11/16/24 10:00 11/17/24 10:22 20 MEQ Sodium Chloride 1,000 ml @ 100 mls/hr Q10H IV 11/15/24 11:45 11/16/24 06:14 100 MLS/HR Pantoprazole Sodium 40 mg BID IV 11/15/24 22:00 11/17/24 10:21 40 MG Norepinephrine Bitartrate 250 ml @ 3.75 mls/hr Q24H IV 11/16/24 19:00 11/16/24 21:43 3.75 MLS/HR Laboratory Results Laboratory Tests 11/17/24 03:56 Chemistry Test 11/17/24 03:56 Albumin 3.3 g/dL (3.2-4.8) Calcium Level 9.1 mg/dL (8.7-10.4) Total Protein 5.4 g/dL (5.7-8.2) L LFT Test 11/17/24 03:56 Alanine Aminotransferase (ALT) 13 U/L (7-40) Alkaline Phosphatase 54 U/L (46-116) Aspartate Amino Transferase (AST) 20 U/L (13-40) Total Bilirubin 0.3 mg/dL (0.2-1.0) Urinalysis Test 11/16/24 04:00 Urine Color Light-yellow (Yellow) Urine Clarity Clear (Clear) Urine pH 6.0 (5.0-9.0) Urine Specific [place] 1.020 (1.001-1.035) Urine Protein Trace (Negative) H Urine Ketones Negative (Negative) Urine Blood 2+ /uL (Negative) H Urine Nitrite Negative (Negative) Urine Bilirubin Negative (Negative) Urine Urobilinogen Normal mg/dL (Negative) Urine Leukocyte Esterase 3+ /uL (Negative) Urine RBC 48 /hpf (0 - 4) Urine Microscopic WBC 143 /HPF (0-5) H Urine Squamous Epithelial Cells Few /hpf (<5) Urine Bacteria None seen /hpf (None Seen) Urine Glucose Normal mg/dL (Normal) Microbiology Microbiology Date/Time Source Procedure Growth Status 11/14/24 13:30 Blood Blood Culture - Preliminary NO GROWTH AFTER 48 HOURS OF INCUBATION. Resulted Labs and/or images reviewed: Labs reviewed by me, Image(s) reviewed by me Assessment/Plan Assessment/Plan Sepsis Secondary to right lower lobe pneumonia: Rocephin azithromycin Acute hypoxic respiratory failure PE right lower lobe Lovenox therapeutic dose consult for appreciated COPD exacerbation Chronic respiratory failure on home O2 AFib with RVR Acute on chronic CHF exacerbation: Consult by cardiology Dr. Guilherme Carballo appreciated History of bladder cancer status post chemo possible lung mets AFib HTN Hypothyroidism Depression Elevated troponin Generalized weakness Constipation Positive stool for occult blood: Gastritis and duodenitis by EGD by Dr. De León Peripheral arterial disease Acute hypotension placed on Levophed transferred to ICU, now blood pressure stable Levophed discontinued transferred back to telemetry. Patient is hospice revoked, patient was with [facility] Time spent 50 minutes Advanced care planning time 20 minutes Patient is full code Acute hypotension: IV fluids Plan discussed with: Patient My Orders Orders - DANO MOJCIA MD Procedure Category Date Status Time Mrsa Screen WALLACE 11/17/24 In Process 09:40 [facility] Inhouse Covid19 WALLACE 11/17/24 Logged 10:30 Transfer Orders XFER 11/17/24 Transmitted 11:46 Date of Service: November 17, 2024 Billing Provider: DANO MOJICA MD Common Visit Codes: [id number] INP/OBS CARE(HIGH) DANO MOJICA MD November 17, 2024 12:57
--- NOTE | 2024-11-17 22:29 | DVHPN2 ---
Progress Note - Dictate Date Seen: November 17, 2024 Medical Necessity Reason Pt with a Central, PICC or Fol: No Subjective Patient was seen and evaluated in follow up. Patient was downgraded to tele bed. Patient is complaining of SOB. Patients BP has improved. Patient is c/o right foot pain. HGB 8.1, HCT 24.4, CO2 32. Viral swabs are negative. Telemetry reviewed. vital signs Vital Sign Date Time Temp Pulse Resp B/P (MAP) Pulse Ox O2 Delivery O2 Flow Rate FiO2 11/17/24 21:00 97.4 102 20 99/57 (71) 100 97.4 11/17/24 20:15 Nasal Cannula 4.0 11/17/24 20:15 36 Total Intake and Output 11/16/24 11/16/24 11/17/24 15:00 23:00 07:00 Intake Total 50 ml 553.75 ml 900 ml Balance 50 ml 553.75 ml 900 ml medications Current Medications Medications Dose Ordered Sig/Isha Route Start Time Stop Time Status Last Admin Dose Admin Levalbuterol HCl 0.625 mg Q6HR PRN NEB 11/13/24 23:15 11/16/24 22:48 0.625 MG Levothyroxine Sodium 25 mcg QAM@0600 PO 11/14/24 06:00 11/17/24 06:00 25 MCG Atorvastatin Calcium 20 mg HS PO 11/14/24 22:00 11/17/24 20:55 20 MG Sertraline HCl 50 mg DAILY PO 11/14/24 10:00 11/17/24 10:21 50 MG Sodium Chloride 10 ml Q8HR IV 11/14/24 06:00 11/17/24 20:57 10 ML Acetaminophen/ Hydrocodone Bitart 1 tab Q4HP PRN PO 11/13/24 23:15 11/17/24 00:53 1 TAB Ondansetron HCl 4 mg Q4HP PRN IV 11/13/24 23:15 11/16/24 22:57 4 MG Docusate Sodium 100 mg BIDPRN PRN PO 11/13/24 23:15 11/15/24 11:10 100 MG Acetaminophen 650 mg Q6HP PRN PO 11/13/24 23:15 11/16/24 14:35 650 MG Enoxaparin Sodium 60 mg Q12HR SC 11/14/24 10:00 11/17/24 20:56 60 MG Nitroglycerin 0.4 mg Q5MINP PRN SL 11/13/24 23:45 Morphine Sulfate 2 mg Q30M PRN IV 11/13/24 23:45 Ceftriaxone Sodium 50 ml @ 100 mls/hr DAILY@09 IV 11/15/24 09:00 11/17/24 08:50 100 MLS/HR Azithromycin 250 ml @ 125 mls/hr DAILY IV 11/15/24 10:00 11/17/24 10:55 125 MLS/HR Lorazepam 1 mg Q6HP PRN PO 11/14/24 16:15 11/17/24 17:53 1 MG Potassium Chloride 20 meq DAILY PO 11/16/24 10:00 11/17/24 10:22 20 MEQ Sodium Chloride 1,000 ml @ 100 mls/hr Q10H IV 11/15/24 11:45 11/16/24 06:14 100 MLS/HR Pantoprazole Sodium 40 mg BID IV 11/15/24 22:00 11/17/24 20:55 40 MG Norepinephrine Bitartrate 250 ml @ 3.75 mls/hr Q24H IV 11/16/24 19:00 Hold 11/16/24 21:43 3.75 MLS/HR objective GENERAL: Alert and oriented x 3. No acute distress. EYES: PERRL, EOMI. Anicteric. HENT: Moist mucous membranes. LUNGS: Decreased breath sounds. CARDIOVASCULAR: Regular rate and rhythm. ABDOMEN: Soft, nontender and nondistended. EXTREMITIES: +1 pitting edema. NEUROLOGIC: No focal neurological deficits. SKIN: Patient has a large eschar formation under the right heel. laboratory and microbiology Laboratory Tests 11/17/24 03:56 Test 11/17/24 03:56 Range/Units Serum Glucose 92 74-106 mg/dL Problem List Atrial fibrillation with RVR. Sepsis Secondary to right lower lobe pneumonia. Acute hypoxic respiratory failure. PE right lower lobe. COPD exacerbation. Chronic respiratory failure on home O2. Acute on chronic CHF exacerbation. History of bladder cancer status post chemo possible lung mets. HTN. Hypothyroidism. Depression. Elevated troponin. Generalized weakness. Constipation. Peripheral arterial disease. Assessment/Plan Continued all current supportive medical care. Echocardiogram. Morphine and [place] for pain management. Lipitor. IV antibiotics as ordered. DVT and GI prophylactics. Additional plan as per the hospital course. Dietary Evaluation Review Recommendations by RD: Protein Supplementation Comments: 1) Initiate James @ 1 pk bid 2) Initiate multivitamin @ 1 tab qd 3) Initiate vitamin C @ 500 mg bid and zinc sulfate @ 220 mg qd for 7-10 days 4) Continue to encourage optimal PO intake 5) Follow-up with cardiology, pulmonology, and oncology/hematology 6) Continue to monitor I&O, labs, and skin integrity Expected Outcomes/Goals: 1) appetite and labs to improve 2) wounds to improve 3) f/u in 3-5 days Plan discussed with: Patient CC Plasma Assessment Blood Product Administration S: 2010 TAL QUINONEZ MD November 17, 2024 22:29
[2024-11-18] VITALS (22 sets, daily range): BP systolic 95–124; BP diastolic 40–88; PULSE 75–116; RESP 16–20; TEMP 97.2–98.1; O2SAT 93–100
--- NOTE | 2024-11-18 10:58 | DVHPN2 ---
Reviewed: Care Plan, H&P, Labs, Medications, Previous Orders, Radiology Changes from previous H/P or p: No Changes Eyes: No Pain, No Vision change, No Conjunctivae inflammation, No Eyelid inflammation, No Other, No Redness ENT: No Ear pain, No Ear discharge, No Nose pain, No Nose discharge, No Nose congestion, No Mouth pain, No Mouth swelling, No Throat pain, No Throat swelling, No Other Cardiovascular: No Chest Pain, No Palpitations, No Orthopnea, No Paroxysmal Noc. Dyspnea, No Edema, No Lt Headedness, No Other Respiratory: No Cough, No Dry; Shortness of breath, SOB with excertion; No Wheezing, No Hemoptysis, No Pleuritic Pain, No Sputum; Other (SOB at rest) Gastrointestinal: No Nausea, No Vomiting, No Abdominal Pain, No Diarrhea, No Constipation, No Melena, No Hematochezia, No Other Genitourinary: No Dysuria, No Frequency, No Incontinence, No Hematuria, No Retention, No Other Musculoskeletal: No other, No neck pain, No shoulder pain, No arm pain, No back pain, No hand pain, No leg pain, No foot pain Skin: No Rash, No Lesions, No Jaundice, No Bruising; Other (Right foot open wound) Objective Vitals Vital Signs Date Time Temp Pulse Resp B/P (MAP) Pulse Ox O2 Delivery O2 Flow Rate FiO2 11/18/24 08:00 16 Nasal Cannula* 4 36 11/18/24 06:00 89 11/18/24 06:00 98 11/18/24 05:00 97.6 124/88 (100) 97.6 Intake/Output Intake and Output 11/18/24 07:00 Intake Total 300 ml Balance 300 ml Intake Oral 300 ml # Voids 4 Medications Current Medications Medications Dose Ordered Sig/Isha Route Start Time Stop Time Status Last Admin Dose Admin Levalbuterol HCl 0.625 mg Q6HR PRN NEB 11/13/24 23:15 11/16/24 22:48 0.625 MG Levothyroxine Sodium 25 mcg QAM@0600 PO 11/14/24 06:00 11/18/24 05:50 25 MCG Atorvastatin Calcium 20 mg HS PO 11/14/24 22:00 11/17/24 20:55 20 MG Sertraline HCl 50 mg DAILY PO 11/14/24 10:00 11/18/24 09:47 50 MG Sodium Chloride 10 ml Q8HR IV 11/14/24 06:00 11/18/24 09:47 10 ML Acetaminophen/ Hydrocodone Bitart 1 tab Q4HP PRN PO 11/13/24 23:15 11/18/24 09:47 1 TAB Ondansetron HCl 4 mg Q4HP PRN IV 11/13/24 23:15 11/16/24 22:57 4 MG Docusate Sodium 100 mg BIDPRN PRN PO 11/13/24 23:15 11/15/24 11:10 100 MG Acetaminophen 650 mg Q6HP PRN PO 11/13/24 23:15 11/16/24 14:35 650 MG Enoxaparin Sodium 60 mg Q12HR SC 11/14/24 10:00 11/18/24 09:46 60 MG Nitroglycerin 0.4 mg Q5MINP PRN SL 11/13/24 23:45 Morphine Sulfate 2 mg Q30M PRN IV 11/13/24 23:45 Ceftriaxone Sodium 50 ml @ 100 mls/hr DAILY@09 IV 11/15/24 09:00 11/18/24 08:11 100 MLS/HR Azithromycin 250 ml @ 125 mls/hr DAILY IV 11/15/24 10:00 11/18/24 09:46 125 MLS/HR Lorazepam 1 mg Q6HP PRN PO 11/14/24 16:15 11/17/24 17:53 1 MG Potassium Chloride 20 meq DAILY PO 11/16/24 10:00 11/18/24 09:47 20 MEQ Sodium Chloride 1,000 ml @ 100 mls/hr Q10H IV 11/15/24 11:45 11/16/24 06:14 100 MLS/HR Pantoprazole Sodium 40 mg BID IV 11/15/24 22:00 11/18/24 09:46 40 MG Norepinephrine Bitartrate 250 ml @ 3.75 mls/hr Q24H IV 11/16/24 19:00 Hold 11/16/24 21:43 3.75 MLS/HR Laboratory Results Laboratory Tests 11/17/24 03:56 Urinalysis Test 11/16/24 04:00 Urine Color Light-yellow (Yellow) Urine Clarity Clear (Clear) Urine pH 6.0 (5.0-9.0) Urine Specific [place] 1.020 (1.001-1.035) Urine Protein Trace (Negative) H Urine Ketones Negative (Negative) Urine Blood 2+ /uL (Negative) H Urine Nitrite Negative (Negative) Urine Bilirubin Negative (Negative) Urine Urobilinogen Normal mg/dL (Negative) Urine Leukocyte Esterase 3+ /uL (Negative) Urine RBC 48 /hpf (0 - 4) Urine Microscopic WBC 143 /HPF (0-5) H Urine Squamous Epithelial Cells Few /hpf (<5) Urine Bacteria None seen /hpf (None Seen) Urine Glucose Normal mg/dL (Normal) Microbiology Microbiology Date/Time Source Procedure Growth Status 11/17/24 09:40 Nose MRSA Screen - Final Complete 11/14/24 13:30 Blood Blood Culture - Preliminary NO GROWTH AFTER 72 HOURS OF INCUBATION. Resulted Labs and/or images reviewed: Labs reviewed by me, Image(s) reviewed by me Assessment/Plan Assessment/Plan Sepsis Secondary to right lower lobe pneumonia: Rocephin azithromycin Acute hypoxic respiratory failure PE right lower lobe Lovenox therapeutic dose consult for appreciated COPD exacerbation Chronic respiratory failure on home O2 AFib with RVR Acute on chronic CHF exacerbation: Consult by cardiology Dr. Guilherme Carballo appreciated History of bladder cancer status post chemo possible lung mets AFib HTN Hypothyroidism Depression Elevated troponin Generalized weakness Constipation Positive stool for occult blood: Gastritis and duodenitis by EGD by Dr. De León Peripheral arterial disease Family conference at bedside Son Kehinde Erazo [phone] and sister LIVAN Escalante [phone] Time spent 70 minutes including 20 minutes family conference Plan discussed with: Patient My Orders Orders - DANO OMJICA MD Procedure Category Date Status Time Transfer Orders XFER 11/17/24 Transmitted 11:46 Date of Service: November 18, 2024 Billing Provider: DANO MOJICA MD Common Visit Codes: [id number] CARE 30-74 MIN DANO MOJICA MD November 18, 2024 10:58
[2024-11-18 11:42] LABS: Basophils # (auto) 0 10 ^3/uL (0-0.2); Basophils % (auto) 0.5 % (0.0-2.0); Eosinophils # (auto) 0.1 10 ^3/uL (0-0.8); Eosinophils % (auto) 1.2 % (0.0-7.0); Hematocrit 27.4 % (36.0-46.0); Hemoglobin 8.9 g/dL (12.2-16.2); Lymphocytes # (auto) 0.9 10 ^3/uL (0.4-5.4); Lymphocytes % (auto) 12.8 % (10.0-50.0); Mean Corpuscular Hemoglobin 30.9 pg (28.0-32.0); Mean Corpuscular Hgb Conc. 32.6 g/dL (32.0-36.0); Mean Corpuscular Volume 94.8 fL (80.0-100.0); Monocytes # (auto) 0.6 10 ^3/uL (0-1.3); Monocytes % (auto) 7.9 % (0.0-12.0); Neutrophils # (auto) 5.5 10 ^3/uL (1.6-8.6); Neutrophils % (auto) 77.6 % (37.0-80.0); Nucleated Red Blood Cells % 0.1 %; Platelet Count (auto) 182 10^3/uL (140-450); Red Blood Cells 2.89 10^6/uL (4.0-5.20); Red Cell Distribution Width 20.1 % (11.8-14.3)
[2024-11-18 11:59] LABS: Alanine Aminotransferase 16 U/L (7-40); Albumin 3.3 g/dL (3.2-4.8); Alkaline Phosphatase 56 U/L (46-116); Anion Gap 2 (5-15); Aspartate Aminotransferase 21 U/L (13-40); BUN/Creatinine Ratio 13.6 (10.0-20.0); Blood Urea Nitrogen 11 mg/dL (9-23); Calcium 9.2 mg/dL (8.7-10.4); Glucose 95 mg/dL (74-106); Potassium 4.4 mmol/L (3.5-5.1)
[2024-11-18 12:00] LABS: Carbon Dioxide 35 mmol/L (20-31); Chloride 98 mmol/L (98-107); Sodium 135 mmol/L (136-145); Total Protein 5.7 g/dL (5.7-8.2)
[2024-11-18 12:01] LABS: Bilirubin, Total 0.2 mg/dL (0.2-1.0)
--- NOTE | 2024-11-18 19:43 | DVHPN2 ---
Progress Note - Dictate Date Seen: November 18, 2024 Medical Necessity Reason Pt with a Central, PICC or Fol: No vital signs Vital Sign Date Time Temp Pulse Resp B/P (MAP) Pulse Ox O2 Delivery O2 Flow Rate FiO2 11/18/24 18:03 99 20 100 11/18/24 17:58 Nasal Cannula* 3 32 11/18/24 17:00 97.5 104/70 (81) 97.5 Total Intake and Output 11/17/24 11/17/24 11/18/24 15:00 23:00 07:00 Intake Total 300 ml Balance 300 ml medications Current Medications Medications Dose Ordered Sig/Isha Route Start Time Stop Time Status Last Admin Dose Admin Levalbuterol HCl 0.625 mg Q6HR PRN NEB 11/13/24 23:15 11/18/24 17:58 0.625 MG Levothyroxine Sodium 25 mcg QAM@0600 PO 11/14/24 06:00 11/18/24 05:50 25 MCG Atorvastatin Calcium 20 mg HS PO 11/14/24 22:00 11/17/24 20:55 20 MG Sertraline HCl 50 mg DAILY PO 11/14/24 10:00 11/18/24 09:47 50 MG Sodium Chloride 10 ml Q8HR IV 11/14/24 06:00 11/18/24 09:47 10 ML Acetaminophen/ Hydrocodone Bitart 1 tab Q4HP PRN PO 11/13/24 23:15 11/18/24 09:47 1 TAB Ondansetron HCl 4 mg Q4HP PRN IV 11/13/24 23:15 11/16/24 22:57 4 MG Docusate Sodium 100 mg BIDPRN PRN PO 11/13/24 23:15 11/15/24 11:10 100 MG Acetaminophen 650 mg Q6HP PRN PO 11/13/24 23:15 11/16/24 14:35 650 MG Enoxaparin Sodium 60 mg Q12HR SC 11/14/24 10:00 11/18/24 09:46 60 MG Nitroglycerin 0.4 mg Q5MINP PRN SL 11/13/24 23:45 Morphine Sulfate 2 mg Q30M PRN IV 11/13/24 23:45 Ceftriaxone Sodium 50 ml @ 100 mls/hr DAILY@09 IV 11/15/24 09:00 11/18/24 08:11 100 MLS/HR Azithromycin 250 ml @ 125 mls/hr DAILY IV 11/15/24 10:00 11/18/24 09:46 125 MLS/HR Lorazepam 1 mg Q6HP PRN PO 11/14/24 16:15 11/18/24 17:26 1 MG Potassium Chloride 20 meq DAILY PO 11/16/24 10:00 11/18/24 09:47 20 MEQ Sodium Chloride 1,000 ml @ 100 mls/hr Q10H IV 11/15/24 11:45 11/16/24 06:14 100 MLS/HR Pantoprazole Sodium 40 mg BID IV 11/15/24 22:00 11/18/24 09:46 40 MG Norepinephrine Bitartrate 250 ml @ 3.75 mls/hr Q24H IV 11/16/24 19:00 Hold 11/16/24 21:43 3.75 MLS/HR laboratory and microbiology Laboratory Tests 11/18/24 11:11 Test 11/18/24 11:11 Range/Units Serum Glucose 95 74-106 mg/dL Assessment/Plan Impression: Acute on chronic hypoxic respiratory failure Pulmonary embolism Pleural effusion, trace Atelectasis COPD Events: Low oxygen requirements On 3 liters nasal cannula No distress Labs and imaging reviewed Plan: Supplemental oxygen Titrate to keep O2 sats above 92%. Incentive spirometry Continue antibiotics F/u cultures Bronchodilators Monitor renal function Monitor electrolytes Supplement as necessary DVT prophylaxis Dietary Evaluation Review Recommendations by RD: Protein Supplementation Comments: 1) Initiate James @ 1 pk bid 2) Initiate multivitamin @ 1 tab qd 3) Initiate vitamin C @ 500 mg bid and zinc sulfate @ 220 mg qd for 7-10 days 4) Continue to encourage optimal PO intake 5) Follow-up with cardiology, pulmonology, and oncology/hematology 6) Continue to monitor I&O, labs, and skin integrity Expected Outcomes/Goals: 1) appetite and labs to improve 2) wounds to improve 3) f/u in 3-5 days Plan discussed with: Patient CC Plasma Assessment Blood Product Administration S: 2010 JOHAN DUQUE MD November 18, 2024 19:43
--- NOTE | 2024-11-18 21:16 | DVHPN2 ---
Progress Note - Dictate Date Seen: November 18, 2024 Medical Necessity Reason Pt with a Central, PICC or Fol: No Subjective Patient was seen and evaluated in follow up. No overnight events. Patient is complaining of SOB, on 3 LPM NC. HGB 8.9, HCT 27.4, CO2 35. Telemetry reviewed. vital signs Vital Sign Date Time Temp Pulse Resp B/P (MAP) Pulse Ox O2 Delivery O2 Flow Rate FiO2 11/18/24 18:03 99 20 100 11/18/24 17:58 Nasal Cannula* 3 32 11/18/24 17:00 97.5 104/70 (81) 97.5 Total Intake and Output 11/17/24 11/17/24 11/18/24 15:00 23:00 07:00 Intake Total 300 ml Balance 300 ml medications Current Medications Medications Dose Ordered Sig/Isha Route Start Time Stop Time Status Last Admin Dose Admin Levalbuterol HCl 0.625 mg Q6HR PRN NEB 11/13/24 23:15 11/18/24 17:58 0.625 MG Levothyroxine Sodium 25 mcg QAM@0600 PO 11/14/24 06:00 11/18/24 05:50 25 MCG Atorvastatin Calcium 20 mg HS PO 11/14/24 22:00 11/17/24 20:55 20 MG Sertraline HCl 50 mg DAILY PO 11/14/24 10:00 11/18/24 09:47 50 MG Sodium Chloride 10 ml Q8HR IV 11/14/24 06:00 11/18/24 09:47 10 ML Acetaminophen/ Hydrocodone Bitart 1 tab Q4HP PRN PO 11/13/24 23:15 11/18/24 09:47 1 TAB Ondansetron HCl 4 mg Q4HP PRN IV 11/13/24 23:15 11/16/24 22:57 4 MG Docusate Sodium 100 mg BIDPRN PRN PO 11/13/24 23:15 11/15/24 11:10 100 MG Acetaminophen 650 mg Q6HP PRN PO 11/13/24 23:15 11/16/24 14:35 650 MG Enoxaparin Sodium 60 mg Q12HR SC 11/14/24 10:00 11/18/24 09:46 60 MG Nitroglycerin 0.4 mg Q5MINP PRN SL 11/13/24 23:45 Morphine Sulfate 2 mg Q30M PRN IV 11/13/24 23:45 Ceftriaxone Sodium 50 ml @ 100 mls/hr DAILY@09 IV 11/15/24 09:00 11/18/24 08:11 100 MLS/HR Azithromycin 250 ml @ 125 mls/hr DAILY IV 11/15/24 10:00 11/18/24 09:46 125 MLS/HR Lorazepam 1 mg Q6HP PRN PO 11/14/24 16:15 11/18/24 17:26 1 MG Potassium Chloride 20 meq DAILY PO 11/16/24 10:00 11/18/24 09:47 20 MEQ Sodium Chloride 1,000 ml @ 100 mls/hr Q10H IV 11/15/24 11:45 11/16/24 06:14 100 MLS/HR Pantoprazole Sodium 40 mg BID IV 11/15/24 22:00 11/18/24 09:46 40 MG Norepinephrine Bitartrate 250 ml @ 3.75 mls/hr Q24H IV 11/16/24 19:00 Hold 11/16/24 21:43 3.75 MLS/HR objective GENERAL: Alert and oriented x 3. No acute distress. EYES: PERRL, EOMI. Anicteric. HENT: Moist mucous membranes. LUNGS: Decreased breath sounds. CARDIOVASCULAR: Regular rate and rhythm. ABDOMEN: Soft, nontender and nondistended. EXTREMITIES: +1 pitting edema. NEUROLOGIC: No focal neurological deficits. SKIN: Patient has a large eschar formation under the right heel. laboratory and microbiology Laboratory Tests 11/18/24 11:11 Test 11/18/24 11:11 Range/Units Serum Glucose 95 74-106 mg/dL Problem List Atrial fibrillation with RVR. Sepsis Secondary to right lower lobe pneumonia. Acute hypoxic respiratory failure. PE right lower lobe. COPD exacerbation. Chronic respiratory failure on home O2. Acute on chronic CHF exacerbation. History of bladder cancer status post chemo possible lung mets. HTN. Hypothyroidism. Depression. Elevated troponin. Generalized weakness. Constipation. Peripheral arterial disease. Assessment/Plan Continued all current supportive medical care. Echocardiogram. Morphine and [place] for pain management. Lipitor. IV antibiotics as ordered. DVT and GI prophylactics. Additional plan as per the hospital course. Dietary Evaluation Review Recommendations by RD: Protein Supplementation Comments: 1) Initiate James @ 1 pk bid 2) Initiate multivitamin @ 1 tab qd 3) Initiate vitamin C @ 500 mg bid and zinc sulfate @ 220 mg qd for 7-10 days 4) Continue to encourage optimal PO intake 5) Follow-up with cardiology, pulmonology, and oncology/hematology 6) Continue to monitor I&O, labs, and skin integrity Expected Outcomes/Goals: 1) appetite and labs to improve 2) wounds to improve 3) f/u in 3-5 days Plan discussed with: Patient CC Plasma Assessment Blood Product Administration S: 2010 TAL QUINONEZ MD November 18, 2024 21:16
[2024-11-19] VITALS (17 sets, daily range): BP systolic 91–123; BP diastolic 52–97; PULSE 65–108; RESP 12–20; TEMP 97.2–98.7; O2SAT 91–100
[2024-11-19 07:00] LABS: Basophils # (auto) 0 10 ^3/uL (0-0.2); Basophils % (auto) 0.5 % (0.0-2.0); Eosinophils # (auto) 0.1 10 ^3/uL (0-0.8); Eosinophils % (auto) 0.9 % (0.0-7.0); Hematocrit 25.7 % (36.0-46.0); Hemoglobin 8.6 g/dL (12.2-16.2); Lymphocytes % (auto) 15.5 % (10.0-50.0); Mean Corpuscular Hemoglobin 31.4 pg (28.0-32.0); Mean Corpuscular Hgb Conc. 33.5 g/dL (32.0-36.0); Mean Corpuscular Volume 93.5 fL (80.0-100.0); Monocytes # (auto) 0.5 10 ^3/uL (0-1.3); Monocytes % (auto) 7.7 % (0.0-12.0); Neutrophils % (auto) 75.4 % (37.0-80.0); Platelet Count (auto) 171 10^3/uL (140-450); Red Blood Cells 2.75 10^6/uL (4.0-5.20); White Blood Cell 6.6 10^3/uL (4.4-10.8)
[2024-11-19 07:28] LABS: Alanine Aminotransferase 13 U/L (7-40); Albumin 3.3 g/dL (3.2-4.8); Alkaline Phosphatase 52 U/L (46-116); Anion Gap 4 (5-15); Aspartate Aminotransferase 19 U/L (13-40); BUN/Creatinine Ratio 13.6 (10.0-20.0); Blood Urea Nitrogen 12 mg/dL (9-23); Calcium 8.7 mg/dL (8.7-10.4); Chloride 99 mmol/L (98-107); Glucose 81 mg/dL (74-106); Potassium 4.3 mmol/L (3.5-5.1); Sodium 136 mmol/L (136-145)
[2024-11-19 07:30] LABS: Bilirubin, Total 0.3 mg/dL (0.2-1.0); Carbon Dioxide 33 mmol/L (20-31); Total Protein 5.5 g/dL (5.7-8.2)
--- NOTE | 2024-11-19 11:01 | DVHPN2 ---
Reviewed: Care Plan, H&P, Labs, Medications, Previous Orders, Radiology Changes from previous H/P or p: No Changes Eyes: No Pain, No Vision change, No Conjunctivae inflammation, No Eyelid inflammation, No Other, No Redness ENT: No Ear pain, No Ear discharge, No Nose pain, No Nose discharge, No Nose congestion, No Mouth pain, No Mouth swelling, No Throat pain, No Throat swelling, No Other Cardiovascular: No Chest Pain, No Palpitations, No Orthopnea, No Paroxysmal Noc. Dyspnea, No Edema, No Lt Headedness, No Other Respiratory: No Cough, No Dry; Shortness of breath, SOB with excertion; No Wheezing, No Hemoptysis, No Pleuritic Pain, No Sputum; Other (SOB at rest) Gastrointestinal: No Nausea, No Vomiting, No Abdominal Pain, No Diarrhea, No Constipation, No Melena, No Hematochezia, No Other Genitourinary: No Dysuria, No Frequency, No Incontinence, No Hematuria, No Retention, No Other Musculoskeletal: No other, No neck pain, No shoulder pain, No arm pain, No back pain, No hand pain, No leg pain, No foot pain Skin: No Rash, No Lesions, No Jaundice, No Bruising; Other (Right foot open wound) Objective Vitals Vital Signs Date Time Temp Pulse Resp B/P (MAP) Pulse Ox O2 Delivery O2 Flow Rate FiO2 11/19/24 09:31 98 Nasal Cannula 3.0 11/19/24 09:31 96 12 11/19/24 09:31 32 11/19/24 08:47 97.8 91/52 (65) 97.8 Intake/Output Intake and Output 11/19/24 07:00 Intake Total 840 ml Balance 840 ml Intake Oral 540 ml IV Total 300 ml # Voids 6 Medications Current Medications Medications Dose Ordered Sig/Isha Route Start Time Stop Time Status Last Admin Dose Admin Levalbuterol HCl 0.625 mg Q6HR PRN NEB 11/13/24 23:15 11/19/24 09:31 0.625 MG Levothyroxine Sodium 25 mcg QAM@0600 PO 11/14/24 06:00 11/19/24 05:30 25 MCG Atorvastatin Calcium 20 mg HS PO 11/14/24 22:00 11/18/24 21:18 20 MG Sertraline HCl 50 mg DAILY PO 11/14/24 10:00 11/19/24 09:09 50 MG Sodium Chloride 10 ml Q8HR IV 11/14/24 06:00 11/19/24 05:33 10 ML Acetaminophen/ Hydrocodone Bitart 1 tab Q4HP PRN PO 11/13/24 23:15 11/19/24 06:15 1 TAB Ondansetron HCl 4 mg Q4HP PRN IV 11/13/24 23:15 11/16/24 22:57 4 MG Docusate Sodium 100 mg BIDPRN PRN PO 11/13/24 23:15 11/15/24 11:10 100 MG Acetaminophen 650 mg Q6HP PRN PO 11/13/24 23:15 11/18/24 21:18 650 MG Enoxaparin Sodium 60 mg Q12HR SC 11/14/24 10:00 11/18/24 21:18 60 MG Nitroglycerin 0.4 mg Q5MINP PRN SL 11/13/24 23:45 Morphine Sulfate 2 mg Q30M PRN IV 11/13/24 23:45 Ceftriaxone Sodium 50 ml @ 100 mls/hr DAILY@09 IV 11/15/24 09:00 11/19/24 09:09 100 MLS/HR Azithromycin 250 ml @ 125 mls/hr DAILY IV 11/15/24 10:00 11/18/24 09:46 125 MLS/HR Lorazepam 1 mg Q6HP PRN PO 11/14/24 16:15 11/19/24 00:04 1 MG Potassium Chloride 20 meq DAILY PO 11/16/24 10:00 11/19/24 09:09 20 MEQ Sodium Chloride 1,000 ml @ 100 mls/hr Q10H IV 11/15/24 11:45 11/16/24 06:14 100 MLS/HR Pantoprazole Sodium 40 mg BID IV 11/15/24 22:00 11/19/24 09:09 40 MG Norepinephrine Bitartrate 250 ml @ 3.75 mls/hr Q24H IV 11/16/24 19:00 Hold 11/16/24 21:43 3.75 MLS/HR Laboratory Results Laboratory Tests 11/19/24 06:16 Chemistry Test 11/18/24 11:11 11/19/24 06:16 Albumin 3.3 g/dL (3.2-4.8) 3.3 g/dL (3.2-4.8) Calcium Level 9.2 mg/dL (8.7-10.4) 8.7 mg/dL (8.7-10.4) Total Protein 5.7 g/dL (5.7-8.2) 5.5 g/dL (5.7-8.2) L LFT Test 11/18/24 11:11 11/19/24 06:16 Alanine Aminotransferase (ALT) 16 U/L (7-40) 13 U/L (7-40) Alkaline Phosphatase 56 U/L (46-116) 52 U/L (46-116) Aspartate Amino Transferase (AST) 21 U/L (13-40) 19 U/L (13-40) Total Bilirubin 0.2 mg/dL (0.2-1.0) 0.3 mg/dL (0.2-1.0) Urinalysis Test 11/16/24 04:00 Urine Color Light-yellow (Yellow) Urine Clarity Clear (Clear) Urine pH 6.0 (5.0-9.0) Urine Specific [place] 1.020 (1.001-1.035) Urine Protein Trace (Negative) H Urine Ketones Negative (Negative) Urine Blood 2+ /uL (Negative) H Urine Nitrite Negative (Negative) Urine Bilirubin Negative (Negative) Urine Urobilinogen Normal mg/dL (Negative) Urine Leukocyte Esterase 3+ /uL (Negative) Urine RBC 48 /hpf (0 - 4) Urine Microscopic WBC 143 /HPF (0-5) H Urine Squamous Epithelial Cells Few /hpf (<5) Urine Bacteria None seen /hpf (None Seen) Urine Glucose Normal mg/dL (Normal) Microbiology Microbiology Date/Time Source Procedure Growth Status 11/17/24 09:40 Nose MRSA Screen - Final Complete 11/14/24 13:30 Blood Blood Culture - Preliminary NO GROWTH AFTER 72 HOURS OF INCUBATION. Resulted Labs and/or images reviewed: Labs reviewed by me, Image(s) reviewed by me Assessment/Plan Assessment/Plan Sepsis Secondary to right lower lobe pneumonia: Rocephin azithromycin Acute hypoxic respiratory failure Pulmonary embolism right lower lobe on therapeutic Lovenox, pulmonary consult by Dr. Lane appreciated COPD exacerbation Chronic respiratory failure on home O2 AFib with RVR Acute on chronic CHF exacerbation: Consult by cardiology Dr. Guilherme Carballo appreciated History of bladder cancer status post chemo possible lung mets AFib HTN Hypothyroidism Depression Elevated troponin Generalized weakness Constipation Positive stool for occult blood: Gastritis and duodenitis by EGD by Dr. De León Peripheral arterial disease Family conference at bedside Son Kehinde Erazo [phone] and sister LIVAN Escalante [phone] Time spent 70 minutes including 20 minutes family conference Plan discussed with: Patient My Orders Orders - DANO MOJICA MD Procedure Category Date Status Time Apply Barrier Cream JEAN 11/18/24 In Process 11:20 * Dietary Consult CONS 11/18/24 Transmitted 14:02 Date of Service: November 19, 2024 Billing Provider: DANO MOJICA MD Common Visit Codes: [id number] INP/OBS CARE(HIGH) DANO MOJICA MD November 19, 2024 11:01
--- NOTE | 2024-11-19 11:17 | DVHPN2 ---
Reviewed: Care Plan, H&P, Labs, Medications, Previous Orders, Radiology Changes from previous H/P or p: No Changes Eyes: No Pain, No Vision change, No Conjunctivae inflammation, No Eyelid inflammation, No Other, No Redness ENT: No Ear pain, No Ear discharge, No Nose pain, No Nose discharge, No Nose congestion, No Mouth pain, No Mouth swelling, No Throat pain, No Throat swelling, No Other Cardiovascular: No Chest Pain, No Palpitations, No Orthopnea, No Paroxysmal Noc. Dyspnea, No Edema, No Lt Headedness, No Other Respiratory: No Cough, No Dry; Shortness of breath, SOB with excertion; No Wheezing, No Hemoptysis, No Pleuritic Pain, No Sputum; Other (SOB at rest) Gastrointestinal: No Nausea, No Vomiting, No Abdominal Pain, No Diarrhea, No Constipation, No Melena, No Hematochezia, No Other Genitourinary: No Dysuria, No Frequency, No Incontinence, No Hematuria, No Retention, No Other Musculoskeletal: No other, No neck pain, No shoulder pain, No arm pain, No back pain, No hand pain, No leg pain, No foot pain Skin: No Rash, No Lesions, No Jaundice, No Bruising; Other (Right foot open wound) Objective Vitals Vital Signs Date Time Temp Pulse Resp B/P (MAP) Pulse Ox O2 Delivery O2 Flow Rate FiO2 11/19/24 09:31 98 Nasal Cannula 3.0 11/19/24 09:31 96 12 11/19/24 09:31 32 11/19/24 08:47 97.8 91/52 (65) 97.8 Intake/Output Intake and Output 11/19/24 07:00 Intake Total 840 ml Balance 840 ml Intake Oral 540 ml IV Total 300 ml # Voids 6 Medications Current Medications Medications Dose Ordered Sig/Isha Route Start Time Stop Time Status Last Admin Dose Admin Levalbuterol HCl 0.625 mg Q6HR PRN NEB 11/13/24 23:15 11/19/24 09:31 0.625 MG Levothyroxine Sodium 25 mcg QAM@0600 PO 11/14/24 06:00 11/19/24 05:30 25 MCG Atorvastatin Calcium 20 mg HS PO 11/14/24 22:00 11/18/24 21:18 20 MG Sertraline HCl 50 mg DAILY PO 11/14/24 10:00 11/19/24 09:09 50 MG Sodium Chloride 10 ml Q8HR IV 11/14/24 06:00 11/19/24 05:33 10 ML Acetaminophen/ Hydrocodone Bitart 1 tab Q4HP PRN PO 11/13/24 23:15 11/19/24 06:15 1 TAB Ondansetron HCl 4 mg Q4HP PRN IV 11/13/24 23:15 11/16/24 22:57 4 MG Docusate Sodium 100 mg BIDPRN PRN PO 11/13/24 23:15 11/15/24 11:10 100 MG Acetaminophen 650 mg Q6HP PRN PO 11/13/24 23:15 11/18/24 21:18 650 MG Nitroglycerin 0.4 mg Q5MINP PRN SL 11/13/24 23:45 Morphine Sulfate 2 mg Q30M PRN IV 11/13/24 23:45 Ceftriaxone Sodium 50 ml @ 100 mls/hr DAILY@09 IV 11/15/24 09:00 11/19/24 09:09 100 MLS/HR Azithromycin 250 ml @ 125 mls/hr DAILY IV 11/15/24 10:00 11/18/24 09:46 125 MLS/HR Lorazepam 1 mg Q6HP PRN PO 11/14/24 16:15 11/19/24 00:04 1 MG Potassium Chloride 20 meq DAILY PO 11/16/24 10:00 11/19/24 09:09 20 MEQ Sodium Chloride 1,000 ml @ 100 mls/hr Q10H IV 11/15/24 11:45 11/16/24 06:14 100 MLS/HR Pantoprazole Sodium 40 mg BID IV 11/15/24 22:00 11/19/24 09:09 40 MG Norepinephrine Bitartrate 250 ml @ 3.75 mls/hr Q24H IV 11/16/24 19:00 Hold 11/16/24 21:43 3.75 MLS/HR Patient Own Medication 10 mg BID PO 11/19/24 22:00 11/25/24 22:00 UNV Laboratory Results Laboratory Tests 11/19/24 06:16 Chemistry Test 11/19/24 06:16 Albumin 3.3 g/dL (3.2-4.8) Calcium Level 8.7 mg/dL (8.7-10.4) Total Protein 5.5 g/dL (5.7-8.2) L LFT Test 11/19/24 06:16 Alanine Aminotransferase (ALT) 13 U/L (7-40) Alkaline Phosphatase 52 U/L (46-116) Aspartate Amino Transferase (AST) 19 U/L (13-40) Total Bilirubin 0.3 mg/dL (0.2-1.0) Urinalysis Test 11/16/24 04:00 Urine Color Light-yellow (Yellow) Urine Clarity Clear (Clear) Urine pH 6.0 (5.0-9.0) Urine Specific [place] 1.020 (1.001-1.035) Urine Protein Trace (Negative) H Urine Ketones Negative (Negative) Urine Blood 2+ /uL (Negative) H Urine Nitrite Negative (Negative) Urine Bilirubin Negative (Negative) Urine Urobilinogen Normal mg/dL (Negative) Urine Leukocyte Esterase 3+ /uL (Negative) Urine RBC 48 /hpf (0 - 4) Urine Microscopic WBC 143 /HPF (0-5) H Urine Squamous Epithelial Cells Few /hpf (<5) Urine Bacteria None seen /hpf (None Seen) Urine Glucose Normal mg/dL (Normal) Microbiology Microbiology Date/Time Source Procedure Growth Status 11/17/24 09:40 Nose MRSA Screen - Final Complete 11/14/24 13:30 Blood Blood Culture - Preliminary NO GROWTH AFTER 72 HOURS OF INCUBATION. Resulted Assessment/Plan Assessment/Plan Sepsis Secondary to right lower lobe pneumonia: Rocephin azithromycin to be continued for 10 more days Acute hypoxic respiratory failure Pulmonary embolism right lower lobe on therapeutic Lovenox, converted to Eliquis pulmonary consult by Dr. Lane appreciated COPD exacerbation Chronic respiratory failure on home O2 AFib with RVR Acute on chronic CHF exacerbation: Consult by cardiology Dr. Guilherme Carballo appreciated Chronic hypotension: Midodrine 10 mg PO TID, discussed with Cardiology Dr. Guilherme Carballo History of bladder cancer status post chemo possible lung mets AFib HTN Hypothyroidism Depression Elevated troponin Generalized weakness Constipation Positive stool for occult blood: Gastritis and duodenitis by EGD by Dr. De León Peripheral arterial disease Patient will be discharged to senior care facility for IV antibiotics for 10 days for pneumonia Plan acceptable to the patient and her sister Ava who has POA Plan discussed with: Patient, Other (sister) My Orders Orders - DANO MOJICA MD Procedure Category Date Status Time Apply Barrier Cream JEAN 11/18/24 In Process 11:20 * Dietary Consult CONS 11/18/24 Transmitted 14:02 (Nf) Eliquis PHA 11/19/24 Logged 22:00 Midodrine Tablet PHA 11/19/24 Logged (Proamatine Tablet) 12:00 Date of Service: November 19, 2024 Billing Provider: DANO MOJICA MD Common Visit Codes: [id number] INP/OBS CARE(HIGH) DANO MOJICA MD November 19, 2024 11:17
--- NOTE | 2024-11-19 11:31 | DVHDS2 ---
Discharge Summary Date of Admission November 13, 2024 at 23:35 Date of Discharge: November 19, 2024 Admitting Diagnosis Shortness of breath and generalized weakness Wounds: None Labs/Diagnostic Data: Laboratory Results Test 11/19/24 06:16 11/17/24 10:00 11/16/24 09:30 11/16/24 04:00 White Blood Count 6.6 10^3/uL (4.4-10.8) Red Blood Count 2.75 10^6/uL (4.0-5.20) Hemoglobin 8.6 g/dL (12.2-16.2) Hematocrit 25.7 % (36.0-46.0) Mean Corpuscular Volume 93.5 fL (80.0-100.0) Mean Corpuscular Hemoglobin 31.4 pg (28.0-32.0) Mean Corpuscular Hemoglobin Concent 33.5 g/dL (32.0-36.0) Red Cell Distribution Width 19.0 % (11.8-14.3) Platelet Count 171 10^3/uL (140-450) Mean Platelet Volume 6.3 fL (6.9-10.8) Neutrophils (%) (Auto) 75.4 % (37.0-80.0) Lymphocytes (%) (Auto) 15.5 % (10.0-50.0) Monocytes (%) (Auto) 7.7 % (0.0-12.0) Eosinophils (%) (Auto) 0.9 % (0.0-7.0) Basophils (%) (Auto) 0.5 % (0.0-2.0) Neutrophils # (Auto) 5.0 10 ^3/uL (1.6-8.6) Lymphocytes # (Auto) 1.0 10 ^3/uL (0.4-5.4) Monocytes # (Auto) 0.5 10 ^3/uL (0-1.3) Eosinophils # (Auto) 0.1 10 ^3/uL (0-0.8) Basophils # (Auto) 0 10 ^3/uL (0-0.2) Nucleated Red Blood Cells 0.0 % Sodium Level 136 mmol/L (136-145) Potassium Level 4.3 mmol/L (3.5-5.1) Chloride Level 99 mmol/L (98-107) Carbon Dioxide Level 33 mmol/L (20-31) Anion Gap 4 (5-15) Blood Urea Nitrogen 12 mg/dL (9-23) Creatinine 0.88 mg/dL (0.550-1.02) Glomerular Filtration Rate Calc 66 mL/min (>90) BUN/Creatinine Ratio 13.6 (10.0-20.0) Serum Glucose 81 mg/dL (74-106) Calcium Level 8.7 mg/dL (8.7-10.4) Total Bilirubin 0.3 mg/dL (0.2-1.0) Aspartate Amino Transferase (AST) 19 U/L (13-40) Alanine Aminotransferase (ALT) 13 U/L (7-40) Alkaline Phosphatase 52 U/L (46-116) Total Protein 5.5 g/dL (5.7-8.2) Albumin 3.3 g/dL (3.2-4.8) Influenza Type A Antigen Negative (Negative) Influenza Type B Antigen Negative (Negative) SARS-CoV-2 Antigen (Rapid) Negative (NEGATIVE) Prothrombin Time 10.9 sec (9.3-11.8) Prothrombin Time INR 1.03 (0.9-1.15) Activated Partial Thromboplast Time 33.6 SEC (24.5-34.5) Urine Color Light-yellow (Yellow) Urine Clarity Clear (Clear) Urine pH 6.0 (5.0-9.0) Urine Specific [place] 1.020 (1.001-1.035) Urine Protein Trace (Negative) Urine Ketones Negative (Negative) Urine Blood 2+ /uL (Negative) Urine Nitrite Negative (Negative) Urine Bilirubin Negative (Negative) Urine Urobilinogen Normal mg/dL (Negative) Urine Leukocyte Esterase 3+ /uL (Negative) Urine RBC 48 /hpf (0 - 4) Urine Microscopic WBC 143 /HPF (0-5) Urine Squamous Epithelial Cells Few /hpf (<5) Urine Bacteria None seen /hpf (None Seen) Urine Glucose Normal mg/dL (Normal) Test 11/15/24 17:16 11/15/24 14:04 11/15/24 11:32 11/13/24 20:26 Lactic Acid Level 1.9 mmol/L (0.4-2.0) Stool Occult Blood Positive (Negative) Stool Occult Blood Sample #3 (Negative) POC Glucose 91 mg/dl (70-106) Troponin I High Sensitivity 23 ng/L (</=34) Test 11/13/24 17:34 D-Dimer, Quantitative 1.45 mg/L FEU (0.0-0.49) B-Type Natriuretic Peptide 548.37 pg/mL (0-100) Lipase 34 U/L (12-53) Other Laboratory Tests 11/19/24 06:16 Brief Hx & Hospital Course: 79-year-old female with multiple medical problems including hypertension atrial fibrillation hypothyroidism depression COPD chronic respiratory failure on home oxygen congestive heart failure came in complaining of shortness of breaths and generalized weakness. Found to be in sepsis secondary to right lower lobe pneumonia treated with Rocephin azithromycin. Patient also has a pulmonary embolism in the right lower lobe placed on therapeutic Lovenox converted to Eliquis at the time of discharge. The patient developed hypotension and moved to ICU during a stay for two or three days slowly improved consult by Cardiology Dr. Carballo placed on midodrine 10 mg PO TID patient also had a stool for occult blood positive GI consult by Dr. De León had EGD showed mild gastric duodenitis placed on pantoprazole patient has a history of bladder cancer status post chemo and possible lung Mets for which she is on hospice Patient made marginal improvement and being discharged to group home facility for IV antibiotics for 10 days for pneumonia until continue Eliquis for pulmonary embolism. General condition poor but stable at the time of discharge patient's sister and power of wrapping machine operator Ava at bedside and agrees with the plan Consults/Reason for consult Cardiology Dr. Guilherme Carballo Operations or Procedures Echocardiogram Condition at Discharge: Fair Final Diagnosis/Problems List Sepsis Secondary to right lower lobe pneumonia: Rocephin azithromycin to be continued for 10 more days Acute hypoxic respiratory failure Pulmonary embolism right lower lobe on therapeutic Lovenox, converted to Eliquis pulmonary consult by Dr. Lane appreciated COPD exacerbation Chronic respiratory failure on home O2 AFib with RVR Acute on chronic CHF exacerbation: Consult by cardiology Dr. Guilherme Carballo appreciated Chronic hypotension: Midodrine 10 mg PO TID, discussed with Cardiology Dr. Guilherme Carballo History of bladder cancer status post chemo possible lung mets AFib HTN Hypothyroidism Depression Elevated troponin Generalized weakness Constipation Positive stool for occult blood: Gastritis and duodenitis by EGD by Dr. De León Peripheral arterial disease Discharge Disposition: [facility] Facility Discharge Instruct/Medications Diet: Cardiac 2g Na,low cholest Activity: Light activity Follow Up/Referral: Follow up with the [facility] Medications: see list Rocephin 1 g IV daily for 10 days Azithromycin 500 mg IV daily for 10 days 39 (Time taken for discharge summary 39 minutes) Discharge Statement: "Patient was advised to return to the ER or call 911 if any headaches, dizziness, shortness of breath, chest pain, abdominal pain, bleeding, fevers, or worsening of medical condition. Patient was counseled about treatment plan, medications, possible side effects, patientverbalized understanding. All questions were answered to the best of my ability. This discharge took greater then 30 minutes in planning, reviewing documentation, counseling the patient, and discussing with other team members." ASSESSMENT ASSESSMENT Hospital Course Marginal improvement Assessment Sepsis Secondary to right lower lobe pneumonia: Rocephin azithromycin to be continued for 10 more days Acute hypoxic respiratory failure Pulmonary embolism right lower lobe on therapeutic Lovenox, converted to Eliquis pulmonary consult by Dr. Lane appreciated COPD exacerbation Chronic respiratory failure on home O2 AFib with RVR Acute on chronic CHF exacerbation: Consult by cardiology Dr. Guilherme Carballo appreciated Chronic hypotension: Midodrine 10 mg PO TID, discussed with Cardiology Dr. Guilherme Carballo History of bladder cancer status post chemo possible lung mets AFib HTN Hypothyroidism Depression Elevated troponin Generalized weakness Constipation Positive stool for occult blood: Gastritis and duodenitis by EGD by Dr. De León Peripheral arterial disease Date of Service: November 19, 2024 Billing Provider: DANO MOJICA MD Common Visit Codes: [id number] DISCH DAY >30min DANO MOJICA MD November 19, 2024 11:31
--- NOTE | 2024-11-19 12:15 | DVHPN2 ---
Progress Note - Dictate Date Seen: November 19, 2024 Medical Necessity Reason Pt with a Central, PICC or Fol: No vital signs Vital Sign Date Time Temp Pulse Resp B/P (MAP) Pulse Ox O2 Delivery O2 Flow Rate FiO2 11/19/24 09:39 97 16 98 11/19/24 09:31 Nasal Cannula 3.0 11/19/24 09:31 32 11/19/24 08:47 97.8 91/52 (65) 97.8 Total Intake and Output 11/18/24 11/18/24 11/19/24 14:59 22:59 06:59 Intake Total 300 ml 240 ml 300 ml Balance 300 ml 240 ml 300 ml medications Current Medications Medications Dose Ordered Sig/Isha Route Start Time Stop Time Status Last Admin Dose Admin Levalbuterol HCl 0.625 mg Q6HR PRN NEB 11/13/24 23:15 11/19/24 09:31 0.625 MG Levothyroxine Sodium 25 mcg QAM@0600 PO 11/14/24 06:00 11/19/24 05:30 25 MCG Atorvastatin Calcium 20 mg HS PO 11/14/24 22:00 11/18/24 21:18 20 MG Sertraline HCl 50 mg DAILY PO 11/14/24 10:00 11/19/24 09:09 50 MG Sodium Chloride 10 ml Q8HR IV 11/14/24 06:00 11/19/24 05:33 10 ML Acetaminophen/ Hydrocodone Bitart 1 tab Q4HP PRN PO 11/13/24 23:15 11/19/24 06:15 1 TAB Ondansetron HCl 4 mg Q4HP PRN IV 11/13/24 23:15 11/16/24 22:57 4 MG Docusate Sodium 100 mg BIDPRN PRN PO 11/13/24 23:15 11/15/24 11:10 100 MG Acetaminophen 650 mg Q6HP PRN PO 11/13/24 23:15 11/18/24 21:18 650 MG Nitroglycerin 0.4 mg Q5MINP PRN SL 11/13/24 23:45 Morphine Sulfate 2 mg Q30M PRN IV 11/13/24 23:45 Ceftriaxone Sodium 50 ml @ 100 mls/hr DAILY@09 IV 11/15/24 09:00 11/19/24 09:09 100 MLS/HR Azithromycin 250 ml @ 125 mls/hr DAILY IV 11/15/24 10:00 11/19/24 11:23 125 MLS/HR Lorazepam 1 mg Q6HP PRN PO 11/14/24 16:15 11/19/24 00:04 1 MG Potassium Chloride 20 meq DAILY PO 11/16/24 10:00 11/19/24 09:09 20 MEQ Sodium Chloride 1,000 ml @ 100 mls/hr Q10H IV 11/15/24 11:45 11/16/24 06:14 100 MLS/HR Pantoprazole Sodium 40 mg BID IV 11/15/24 22:00 11/19/24 09:09 40 MG Norepinephrine Bitartrate 250 ml @ 3.75 mls/hr Q24H IV 11/16/24 19:00 Hold 11/16/24 21:43 3.75 MLS/HR Patient Own Medication 10 mg BID PO 11/19/24 22:00 11/25/24 22:00 UNV Midodrine 10 mg TID@0600,1200,1800 PO 11/19/24 12:00 laboratory and microbiology Laboratory Tests 11/19/24 06:16 Test 11/19/24 06:16 Range/Units Serum Glucose 81 74-106 mg/dL Assessment/Plan Impression: Acute on chronic hypoxic respiratory failure Pulmonary embolism Pleural effusion, trace Atelectasis COPD Events: Low oxygen requirements On 3 liters nasal cannula No distress Labs and imaging reviewed Plan: Supplemental oxygen Titrate to keep O2 sats above 92%. Incentive spirometry Continue antibiotics F/u cultures Bronchodilators Monitor renal function Monitor electrolytes Supplement as necessary DVT prophylaxis Dietary Evaluation Review Recommendations by RD: Protein Supplementation Comments: 1) Initiate James @ 1 pk bid 2) Initiate multivitamin @ 1 tab qd 3) Initiate vitamin C @ 500 mg bid and zinc sulfate @ 220 mg qd for 7-10 days 4) Continue to encourage optimal PO intake 5) Follow-up with cardiology, pulmonology, and oncology/hematology 6) Continue to monitor I&O, labs, and skin integrity Expected Outcomes/Goals: 1) appetite and labs to improve 2) wounds to improve 3) f/u in 3-5 days Plan discussed with: Other CC Plasma Assessment Blood Product Administration S: 2010 JOHAN DUQUE MD November 19, 2024 12:15
[2024-11-19] MEDS: MIDODRINE HCL 10 MG TAB PO SCH (12:20)
[2024-11-19] MEDS: APIXABAN 5 MG TAB PO SCH (13:41)
--- NOTE | 2024-11-19 20:42 | DVHPN2 ---
Progress Note - Dictate Date Seen: November 19, 2024 Medical Necessity Reason Pt with a Central, PICC or Fol: No Subjective Patient was seen and evaluated in follow up. Patient is on 3 LPM NC. She is receiving PRN med neb treatments.HGB 8.6, HCT 25.7, CO2 33. Telemetry reviewed. vital signs Vital Sign Date Time Temp Pulse Resp B/P (MAP) Pulse Ox O2 Delivery O2 Flow Rate FiO2 11/19/24 12:33 97.5 103 18 103/64 (77) 94 97.5 11/19/24 09:31 Nasal Cannula 3.0 11/19/24 09:31 32 Total Intake and Output 11/18/24 11/18/24 11/19/24 15:00 23:00 07:00 Intake Total 300 ml 240 ml 300 ml Balance 300 ml 240 ml 300 ml medications Current Medications Medications Dose Ordered Sig/Isha Route Start Time Stop Time Status Last Admin Dose Admin Levalbuterol HCl 0.625 mg Q6HR PRN NEB 11/13/24 23:15 11/19/24 09:31 0.625 MG Levothyroxine Sodium 25 mcg QAM@0600 PO 11/14/24 06:00 11/19/24 05:30 25 MCG Atorvastatin Calcium 20 mg HS PO 11/14/24 22:00 11/18/24 21:18 20 MG Sertraline HCl 50 mg DAILY PO 11/14/24 10:00 11/19/24 09:09 50 MG Sodium Chloride 10 ml Q8HR IV 11/14/24 06:00 11/19/24 05:33 10 ML Acetaminophen/ Hydrocodone Bitart 1 tab Q4HP PRN PO 11/13/24 23:15 11/19/24 06:15 1 TAB Ondansetron HCl 4 mg Q4HP PRN IV 11/13/24 23:15 11/16/24 22:57 4 MG Docusate Sodium 100 mg BIDPRN PRN PO 11/13/24 23:15 11/15/24 11:10 100 MG Acetaminophen 650 mg Q6HP PRN PO 11/13/24 23:15 11/18/24 21:18 650 MG Nitroglycerin 0.4 mg Q5MINP PRN SL 11/13/24 23:45 Morphine Sulfate 2 mg Q30M PRN IV 11/13/24 23:45 Ceftriaxone Sodium 50 ml @ 100 mls/hr DAILY@09 IV 11/15/24 09:00 11/19/24 09:09 100 MLS/HR Azithromycin 250 ml @ 125 mls/hr DAILY IV 11/15/24 10:00 11/19/24 11:23 125 MLS/HR Lorazepam 1 mg Q6HP PRN PO 11/14/24 16:15 11/19/24 00:04 1 MG Potassium Chloride 20 meq DAILY PO 11/16/24 10:00 11/19/24 09:09 20 MEQ Sodium Chloride 1,000 ml @ 100 mls/hr Q10H IV 11/15/24 11:45 11/16/24 06:14 100 MLS/HR Pantoprazole Sodium 40 mg BID IV 11/15/24 22:00 11/19/24 09:09 40 MG Norepinephrine Bitartrate 250 ml @ 3.75 mls/hr Q24H IV 11/16/24 19:00 Hold 11/16/24 21:43 3.75 MLS/HR Midodrine 10 mg TID@0600,1200,1800 PO 11/19/24 12:00 11/19/24 12:20 10 MG Apixaban 10 mg Q12HR PO 11/19/24 13:00 11/25/24 12:59 Apixaban 5 mg Q12HR PO 11/25/24 22:00 objective GENERAL: Alert and oriented x 3. No acute distress. EYES: PERRL, EOMI. Anicteric. HENT: Moist mucous membranes. LUNGS: Decreased breath sounds. CARDIOVASCULAR: Regular rate and rhythm. ABDOMEN: Soft, nontender and nondistended. EXTREMITIES: +1 pitting edema. NEUROLOGIC: No focal neurological deficits. SKIN: Patient has a large eschar formation under the right heel. laboratory and microbiology Laboratory Tests 11/19/24 06:16 Test 11/19/24 06:16 Range/Units Serum Glucose 81 74-106 mg/dL Problem List Atrial fibrillation with RVR. Sepsis Secondary to right lower lobe pneumonia. Acute hypoxic respiratory failure. PE right lower lobe. COPD exacerbation. Chronic respiratory failure on home O2. Acute on chronic CHF exacerbation. History of bladder cancer status post chemo possible lung mets. HTN. Hypothyroidism. Depression. Elevated troponin. Generalized weakness. Constipation. Peripheral arterial disease. Assessment/Plan Continued all current supportive medical care. Morphine and [place] for pain management. Eliquis. Lipitor. IV antibiotics as ordered. DVT and GI prophylactics. Nitro SL. Additional plan as per the hospital course. Dietary Evaluation Review Recommendations by RD: Protein Supplementation Comments: 1) Initiate James @ 1 pk bid 2) Initiate multivitamin @ 1 tab qd 3) Initiate vitamin C @ 500 mg bid and zinc sulfate @ 220 mg qd for 7-10 days 4) Continue to encourage optimal PO intake 5) Follow-up with cardiology, pulmonology, and oncology/hematology 6) Continue to monitor I&O, labs, and skin integrity Expected Outcomes/Goals: 1) appetite and labs to improve 2) wounds to improve 3) f/u in 3-5 days Plan discussed with: Patient CC Plasma Assessment Blood Product Administration S: 2010 TAL QUINONEZ MD November 19, 2024 13:17
--- NOTE | 2024-11-21 23:28 | DVHSR ---
APPROVED REPORT EXAM: Two-dimensional and M-mode echocardiogram with Doppler and color Doppler. Blood Pressure: 87/52 mmHg INDICATION CHF RISK FACTORS Height: 5'7", Weight: 167 DIMENSIONS LVDd4.4 (3.8-5.7cm)LA (2D)4.5 (1.9-4.0cm)Aortic Root3.8 (2.0-3.7cm) LVDs3.0 (2.5-4.0cm)LA (MM) (1.9-4.0cm)Aortic Cusp Exc0.6 (1.5-2.0cm) EF (%) 60.0 (55-70%)Rt. Atrium4.3 (1.9-4.0cm)Asc. Aorta cm IVSd1.2 (0.7-1.1cm)RV (D) (1.8-2.4cm) PWd1.2 (0.7-1.1cm) Mitral Valve MitralMitral Stenosis E wavem/sMV Mean GR.10mmHg A wavem/sMV Peak GR.17mmHg E/A ratio0.02D MVAcm2 Aortic Valve Aortic ValveAortic Stenosis V11.11m/Sugey Mean GR.14mmHg V22.52m/Sugey Peak GR.25mmHg LVOT Diameter2.2 (1.8-2.4cm)Doppler AVA1.67cm2 Tricuspid Valve TR Velocity2.91m/s [id number] Other Information Technically limited study due to body habitus. Conclusion MODERATE DEGREE LVH AND MODERATE DEGREE LV DIASTOLIC DYSFUNCTION LV EF IS 65% VERY HEAVILY CALCIFIED MITRAL LEAFLETS WITH DECREASED EXCURSION LIKELY CALCIFIC MITRAL STENOSIS DILATED LA HEAVILY CALCIFIED AORTIC LEAFLETS AORTIC VALVE AREA IS 1.67 CMSQUARE AND IS MODERATE DEGREE AORTIC STENOSIS NO EFFUSION MILD PULMONARY HYPERTENSION SLIGHTLY DILATED RV
[2024-11-25] MEDS ORDERED: APIXABAN 5 MG TAB PO SCH (22:00)
== END 2024-11-19 21:00 | DRG 871 ==
LOC: EDBD 15:04 → EDUNIT# 15:04 → ER 15:07 → OVERFLOW 23:35 → TELE-EAST 11-14 02:17 → CATH ICU 11-16 21:00 → TELE-WESTW 11-17 18:13
PROVIDERS: ADMIT Family Medicine; ATTEND Family Medicine
PROC: 30233N1 Transfusion of Nonautologous Red Blood Cells into Peripheral Vein, Percutaneous Approach (ICD-10-PCS; 2024-11-16)
PROC: 0DB78ZX Excision of Stomach, Pylorus, Via Natural or Artificial Opening Endoscopic, Diagnostic (ICD-10-PCS; principal; 2024-11-16 10:09)
DX: A41.50 Gram-negative sepsis, unspecified (principal); I26.99 Other pulmonary embolism without acute cor pulmonale; J96.21 Acute and chronic respiratory failure with hypoxia; J15.69 Pneumonia due to other Gram-negative bacteria; J15.9 Unspecified bacterial pneumonia; J44.1 Chronic obstructive pulmonary disease with (acute) exacerbation; J44.0 Chronic obstructive pulmonary disease with (acute) lower respiratory infection; J98.11 Atelectasis; E03.9 Hypothyroidism, unspecified; I50.9 Heart failure, unspecified; D64.9 Anemia, unspecified; E87.6 Hypokalemia; I11.0 Hypertensive heart disease with heart failure; I48.91 Unspecified atrial fibrillation; Z20.822 Contact with and (suspected) exposure to COVID-19; I73.9 Peripheral vascular disease, unspecified; K59.00 Constipation, unspecified; K29.80 Duodenitis without bleeding; K29.70 Gastritis, unspecified, without bleeding; K44.9 Diaphragmatic hernia without obstruction or gangrene; F32.A Depression, unspecified; Z85.51 Personal history of malignant neoplasm of bladder; Z90.710 Acquired absence of both cervix and uterus; Z88.1 Allergy status to other antibiotic agents; Z88.8 Allergy status to other drugs, medicaments and biological substances; Z79.899 Other long term (current) drug therapy; Z81.1 Family history of alcohol abuse and dependence; Z80.1 Family history of malignant neoplasm of trachea, bronchus and lung; Z99.81 Dependence on supplemental oxygen; Z79.01 Long term (current) use of anticoagulants
CPT/HCPCS: 36415; 71045; 71275; 80053; 81001; 82270; 82962; 83605; 83690; 83880; 84484; 85025; 85379; 85610; 85730; 86850; 86900; 86901; 86922; 87040; 87081; 87426; 87804; 93005; 93306; 94640; 96372; 96374; 96375; G0378; J2003; J2405; J2470; J2704; J3480

== ENCOUNTER 2024-11-23 11:01 | Inpatient (IN) | payer OTHER ==
[2024-11-23] VITALS (8 sets, daily range): BP systolic 72–107; BP diastolic 40–64; PULSE 91–105; RESP 16–23; TEMP 97.5–98.8; O2SAT 98–99
[~2024-11-23] VITALS: Ht 170.2 cm; Wt 70.1 kg
[2024-11-23] MEDS: NOREPINEPHRINE 8 MG/250ML KIT 250 ML IV SCH (11:07)
[2024-11-23] MEDS: SODIUM CHLORIDE 0.9% 1,000 ML IV ONE ×2 (11:35→12:21)
[2024-11-23] MEDS: cefTRIAXone 1GM/50ML D5W 50 ML IV ONE (11:40)
--- NOTE | 2024-11-23 11:45 | ED.PDOC ---
History of Present Illness HPI Comments 79-year-old female BIBA with prior medical history of COPD, CHF, bladder cancer, hypertension, 4 L of home O2; surgical history of hysterectomy in a chief complaint of shortness a breath/blood in urine. EMS report that the patient was picked the from [facility] with the initial call being the blood in the urine, until they arrived on scene with the patient having a pulse rate of being in the 40s, with it being 196 in route for 5 minutes. That the patient was pale in color with mildly unresponsive on scene, most likely due from the low heart rate. Nurse at [facility] did not know any information of the patient. Patient is bed ridden. Patient does have bilateral lower edema. Notes the on scene the patient was on 4 L NC at 84% and was given 10 L which brought it down to 64% then fixed it. Denies chills, fever, N/V/D, CP. No other associated symptoms, modifiers, recent injuries or sick contacts present at this time. Chief Complaint: Urinary Time Seen by MD: 11:25 Primary Care Provider: unknown Reviewed Notes: Nurses Notes, Right Of Way Manager Notes, Medications, Allergies Allergies: Coded Allergies: Bupropion (Verified Allergy, Severe, 07/14/19) Ciprofloxacin (Verified Allergy, Severe, 07/14/19) Naproxen (Verified Allergy, Intermediate, 09/03/24) RASH Home Meds Reported Medications Hydroxyzine Pamoate (Hydroxyzine Pamoate) 25 Mg Cap, 1 CAP PO TID PRN for ANXIETY for 60 Days, #180 09/04/24 Furosemide (Furosemide) 40 Mg Tab, 1 TAB PO BID for 100 Days, #200 25 Ryfxsmtjqwi-Ebbntejvxgfl-Pldkc (Trelegy Ellipta 100-62.5-25 Mcg/INH) 1 Aer Aer, 1 PUFF IN DAILY for 30 Days, #60 3/25 Ipratropium-Albuterol (COMBIVENT RESPIMAT) Respimat Aer, 1 PUFF IN Q6HR PRN for 30 Days, #4 25 Potassium Chloride (Potassium Chloride ER) 20 Meq Tab, 1 TAB PO BID for 90 Days, #180 325 Metolazone (Metolazone) 2.5 Mg Tab, 1 TAB PO DAILY for 90 Days, #90 325 Levothyroxine Sodium (Levothyroxine Sodium) 25 Mcg Tab, 1 TAB PO DAILY for 90 Days, #90 09/04/24 Sertraline Hcl (Sertraline Hcl) 50 Mg Tab, 1 TAB PO DAILY for 100 Days, #100 09/04/24 Metoprolol Tartrate (Metoprolol Tartrate) 25 Mg Tab, 1 TAB PO BID for 100 Days, #200 09/04/24 Simvastatin (Simvastatin) 20 Mg Tab, 1 TAB PO QPM for 100 Days, #100 07/15/19 Information Source: Patient, Emergency Med Personnel Mode of Arrival: EMS Severity: Moderate Timing: Hours Duration: Since onset Prehospital treatment: None Past Medical History PAST MEDICAL HISTORY: Cancer (Bladder), CHF, COPD (40 L NC on home), HTN Surgical History: Hysterectomy 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 History Family History Family History: Reviewed,noncontributory to illness, Unknown Social History Smoker: Non-Smoker Alcohol: Denies ETOH Use Drugs: Denies Drug Use Lives In: Home Constitutional: denies: chills, diaphoresis, fatigue, fever, malaise, sweats, weakness, others EENTM: denies: blurred vision, double vision, ear bleeding, ear discharge, ear drainage, ear pain, ear ringing, eye pain, eye redness, hearing loss, mouth pain, mouth swelling, nasal discharge, nose bleeding, nose congestion, nose pain, photophobia, tearing, throat pain, throat swelling, voice changes, others Respiratory: reports: shortness of breath; denies: cough, hemoptysis, orthopnea, SOB at rest, SOB with excertion, stridor, wheezing, others Cardiovascular: denies: chest pain, dizzy spells, diaphoresis, Dyspnea on exertion, edema, irregular heart beat, left arm pain, lightheadedness, palpitations, PND, syncope, others Gastrointestinal: denies: abdomen distended, abdominal pain, blood streaked bowels, constipated, diarrhea, dysphagia, difficulty swallowing, hematemesis, melena, nausea, poor appetite, poor fluid intake, rectal bleeding, rectal pain, vomiting, others Genitourinary: reports: hematuria; denies: abnormal vagina bleeding, burning, dyspareunia, dysuria, flank pain, frequency, incontinence, pain, , vagina discharge, urgency, others Neurological: denies: dizziness, fainting, headache, left sided numbness, left sided weakness, numbness, paresthesia, pre-existing deficit, right sided numbness, right sided weakness, seizure, speech problems, tingling, tremors, weakness, others Musculoskeletal: denies: back pain, gout, joint pain, joint swelling, muscle pain, muscle stiffness, neck pain, others Integumetry: denies: bruises, change in color, change in hair/nails, dryness, laceration, lesions, lumps, rash, wounds, others Allergic/Immunocompromised: denies: Difficulty Healing, Frequent Infections, Hives, Itching, others Hematologic/Lymphatic: denies: anemia, blood clots, easy bleeding, easy bruising, swollen glands, others Endocrine: denies: excessive hunger, excessive sweating, excessive thirst, excessive urination, flushing, intolerance to cold, intolerance to heat, unexplained weight gain, unexplained weight loss, others Psychiatric: denies: anxiety, bipolar disorder, depression, hopeless, panic disorder, schizophrenia, sleepless, suicidal, others All Other Systems: Reviewed and Negative Physical Exam General Appearance: Normal, Severe Distress HEENT: Normal ENT Inspection, Pharynx Normal, TMs Normal Neck: Full Range of Motion, Non-Tender, Normal, Normal Inspection Respiratory: Accessory Muscle Use, Chest Non-Tender, Respiratory Distress, Other (Coarse breath sounds) Cardiovascular: No Edema, No JVD, No Murmur, No Gallop, Normal Peripheral Pulses, Regular Rate/Rhythm Breast Exam: Deferred Gastrointestinal: No Organomegaly, Non Tender, No Pulsatile Mass, Normal Bowel Sounds, Soft Genitalia: Deferred Pelvic: Deferred Rectal: Deferred Extremities: No calf tenderness, Pedal edema Musculoskeletal : Apperance: Normal Neurologic: Alert, library monitor II-XII nml as Tested, No Motor Deficits, Normal Affect, Normal Mood, No Sensory Deficits Cerebellar Function: NOT DONE Reflexes: NOT DONE Skin: Dry, Normal Color, Warm Peripheral Pulses: 3+ Radial (R), 3+ Radial (L) Lymphatic: No Adenopathy Was a procedure done? Was a procedure done?: No Differential Dx Considerations may include: CHF Pneumonia X-Ray, Labs, Meds, VS Vital Signs Date Time Temp Pulse Resp B/P (MAP) Pulse Ox O2 Delivery O2 Flow Rate FiO2 11/23/24 11:45 105 16 104/41 (62) 11/23/24 11:30 105 16 96/40 (58) 11/23/24 11:25 107 16 91/50 (64) 11/23/24 11:20 90/36 11/23/24 11:17 105 23 99 Nasal Cannula* 3 32 11/23/24 11:15 104 17 90/51 (64) 95 11/23/24 11:12 103 11/23/24 11:10 97.6 104 17 84/42 (56) 95 97.6 11/23/24 11:08 103 11/23/24 11:07 81/43 11/23/24 11:06 97.6 104 17 84/42 (56) 95 97.6 Lab Test 11/23/24 11:43 Range/Units White Blood Count Pending Red Blood Count Pending Hemoglobin Pending Hematocrit Pending Mean Corpuscular Volume Pending Mean Corpuscular Hemoglobin Pending Mean Corpuscular Hemoglobin Concent Pending Red Cell Distribution Width Pending Platelet Count Pending Mean Platelet Volume Pending Neutrophils (%) (Auto) Pending Lymphocytes (%) (Auto) Pending Monocytes (%) (Auto) Pending Basophils (%) (Auto) Pending Neutrophils # (Auto) Pending Lymphocytes # (Auto) Pending Monocytes # (Auto) Pending Sodium Level Pending Potassium Level Pending Chloride Level Pending Carbon Dioxide Level Pending Anion Gap Pending Blood Urea Nitrogen Pending Creatinine Pending Glomerular Filtration Rate Calc Pending BUN/Creatinine Ratio Pending Serum Glucose Pending Lactic Acid Level Pending Calcium Level Pending Troponin I High Sensitivity Pending B-Type Natriuretic Peptide Pending Current Medications Medications (Trade) Dose Ordered Sig/Isha Route Start Time Stop Time Status Last Admin Norepinephrine Bitartrate 250 ml @ 3.75 mls/hr Q24H IV 11/23/24 11:30 11/23/24 11:07 Ceftriaxone Sodium 50 ml @ 100 mls/hr ONCE ONCE IV 11/23/24 11:30 11/23/24 11:59 DC 11/23/24 11:40 Sodium Chloride 1,000 ml @ 1,000 mls/hr Q1H ONCE IV 11/23/24 11:30 11/23/24 12:29 11/23/24 11:35 Patient answering simple questions. Came in on oxygen. Tamir-tachy rhythm. Has swelling of bilateral extremity. Blood pressure low. Establish intravenous access. Was given fluids. We will have to stop the fluids because of possible CHF. Was given Lasix pain Was given Rocephin. Was given azithromycin. Pneumonia protocol. Sepsis protocol. Hemoglobin is low. Blood transfusion. She does have bleeding from her urine. Urology consultation. Continue to monitor. Explained to the patient the treatment plan. Time of 1ST Reevaluation: 11:55 Reevaluation 1ST: Unchanged Patient Education/Counseling: Diagnosis, Treatment, Prognosis Family Education/Counseling: No Family Present Sepsis Sepsis Reasesment Focused Exam Orders: Laboratory Tests 11/23/24 11:43: Departure 1 Departure Time of Disposition: 12:10 Impression: Primary Impression: Acute CHF (congestive heart failure) Qualified Codes: I50.41 - Acute combined systolic (congestive) and diastolic (congestive) heart failure Additional Impressions: Sepsis Qualified Codes: A41.9 - Sepsis, unspecified organism Severe anemia Disposition: ADMITTED INPATIENT Admit to: ICU Condition: Guarded Critical Care Note Critical Care Time?: Yes (90 min-critical care time only) Critical care comment: Continue monitor Stability Stability form required: No Heart Score Heart Score: Heart Score Response (Comments) Value History Slightly Suspicious 0 EKG Normal 0 Age >65 2 Risk Factors >3 or Hx ASHD 2 Troponin Normal limit 0 Total 4 I personally scribed for DAVID IRIZARRY MD ([email or web address]) on 11/23/24 at 11:45. Electronically submitted by Juna Hooker ([email or web address]). DAVID IRIZARRY MD November 23, 2024 11:45
--- NOTE | 2024-11-23 11:50 | ECG ---
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
[2024-11-23 12:04] LABS: Basophils # (auto) 0.1 10 ^3/uL (0-0.2); Eosinophils # (auto) 0.1 10 ^3/uL (0-0.8); Lymphocytes # (auto) 1.3 10 ^3/uL (0.4-5.4); Monocytes # (auto) 0.6 10 ^3/uL (0-1.3); Monocytes % (auto) 7.3 % (0.0-12.0); Neutrophils # (auto) 6.4 10 ^3/uL (1.6-8.6); White Blood Cell 8.4 10^3/uL (4.4-10.8)
[2024-11-23 12:06] LABS: Basophils % (auto) 0.7 % (0.0-2.0); Eosinophils % (auto) 0.8 % (0.0-7.0); Hematocrit 17.3 % (36.0-46.0); Lymphocytes % (auto) 15.2 % (10.0-50.0); Mean Corpuscular Hemoglobin 31.8 pg (28.0-32.0); Mean Corpuscular Hgb Conc. 33.5 g/dL (32.0-36.0); Mean Corpuscular Volume 94.9 fL (80.0-100.0); Platelet Count (auto) 189 10^3/uL (140-450); Red Blood Cells 1.82 10^6/uL (4.0-5.20); Red Cell Distribution Width 19.3 % (11.8-14.3)
[2024-11-23 12:08] LABS: Hemoglobin 5.8 g/dL (12.2-16.2)
[2024-11-23 12:33] LABS: Chloride 98 mmol/L (98-107); Potassium 3.8 mmol/L (3.5-5.1); Sodium 139 mmol/L (136-145)
[2024-11-23 12:34] LABS: Anion Gap 7 (5-15)
[2024-11-23 12:35] LABS: Calcium 8.9 mg/dL (8.7-10.4)
[2024-11-23 12:40] LABS: Blood Urea Nitrogen 21 mg/dL (9-23); Glucose 96 mg/dL (74-106)
[2024-11-23 12:47] LABS: Carbon Dioxide 34 mmol/L (20-31)
--- NOTE | 2024-11-23 12:59 | DVH ---
CHEST RADIOGRAPH Indication: sob Technique: Single frontal view of the chest was obtained COMPARISON: FINDINGS: The cardiac silhouette is enlarged. The lungs demonstrate bilateral patchy airspace opacities. The pu lmonary vasculature is prominent. Small bilateral pleural effusions. Aortic atherosclerotic disease. There is no pneumothorax. IMPRESSION: 1. Cardiomegaly with pulmonary vascular congestion and bilateral patchy airspace opacities. 2. Small bilateral pleural effusions.
[2024-11-23] MEDS: AZITHROMYCIN 500MG/ 250ML 250 ML IV ONE (13:31)
[2024-11-23] MEDS: FUROSEMIDE 20 MG/2 ML VIAL IV ONE (13:31)
[2024-11-23] MEDS: LORazepam 2MG/ML-1ML VIAL IV ONE (14:38)
[2024-11-23 15:16] LABS: Urine Bacteria None Seen /hpf (None Seen)
[2024-11-23 15:30] LABS: Urine Blood 3+ /uL (Negative); Urine Budding Yeast OCCASIONAL /hpf (None Seen); Urine Clarity Ex.Turbid (Clear); Urine Color Light-Red (Yellow); Urine Protein, UAD 1+ (Negative); Urine Specific Gravity 1.006 (1.001-1.035); Urine Squamous Epithelial Cell None Seen /hpf (<5); Urine Urobilinogen Normal (Negative); Urine WBC 215 /HPF (0-5)
[2024-11-23] MEDS ORDERED: ONDANSETRON HCL 4 MG/2 ML VIAL IV PRN (16:00)
[2024-11-23] MEDS ORDERED: ACETAMINOPHEN 325 MG TAB PO PRN (16:00)
--- NOTE | 2024-11-23 16:00 | DVHHP2 ---
Admitting Diagnosis: Hematuria History of Present Illness 79-year-old female BIBA with prior medical history of COPD, CHF, bladder cancer, hypertension, 4 L of home O2; surgical history of hysterectomy in a chief complaint of shortness a breath/blood in urine. EMS report that the patient was picked the from [facility] with the initial call being the blood in the urine, until they arrived on scene with the patient having a pulse rate of being in the 40s, with it being 196 in route for 5 minutes. That the patient was pale in color with mildly unresponsive on scene, most likely due from the low heart rate. Nurse at [facility] did not know any information of the patient. Patient is bed ridden. Patient does have bilateral lower edema. Notes the on scene the patient was on 4 L NC at 84% and was given 10 L which brought it down to 64% then fixed it. Denies chills, fever, N/V/D, CP. No other associated symptoms, modifiers, recent injuries or sick contacts present at this time. 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 History Family History Family History: Reviewed,noncontributory to illness, Unknown Social History Smoker: Non-Smoker Alcohol: Denies ETOH Use Drugs: Denies Drug Use Lives In: Home Patient Family History: Alcoholism G8 MOTHER G8 FATHER FH: alcohol abuse G8 FATHER FH: lung cancer G8 MOTHER Allergies: Coded Allergies: Bupropion (Verified Allergy, Severe, 07/14/19) Ciprofloxacin (Verified Allergy, Severe, 07/14/19) Naproxen (Verified Allergy, Intermediate, 09/03/24) RASH Home Meds Reported Medications Hydroxyzine Pamoate (Hydroxyzine Pamoate) 25 Mg Cap, 1 CAP PO TID PRN for ANXIETY for 60 Days, #180 09/04/24 Furosemide (Furosemide) 40 Mg Tab, 1 TAB PO BID for 100 Days, #200 09/04/24 Fxltftxhksn-Tyflvxomjefr-Fvpsw (Trelegy Ellipta 100-62.5-25 Mcg/INH) 1 Aer Aer, 1 PUFF IN DAILY for 30 Days, #60 25 Ipratropium-Albuterol (COMBIVENT RESPIMAT) Respimat Aer, 1 PUFF IN Q6HR PRN for 30 Days, #4 09/04/24 Potassium Chloride (Potassium Chloride ER) 20 Meq Tab, 1 TAB PO BID for 90 Days, #180 09/04/24 Metolazone (Metolazone) 2.5 Mg Tab, 1 TAB PO DAILY for 90 Days, #90 09/04/24 Levothyroxine Sodium (Levothyroxine Sodium) 25 Mcg Tab, 1 TAB PO DAILY for 90 Days, #90 09/04/24 Sertraline Hcl (Sertraline Hcl) 50 Mg Tab, 1 TAB PO DAILY for 100 Days, #100 09/04/24 Metoprolol Tartrate (Metoprolol Tartrate) 25 Mg Tab, 1 TAB PO BID for 100 Days, #200 09/04/24 Simvastatin (Simvastatin) 20 Mg Tab, 1 TAB PO QPM for 100 Days, #100 07/15/19 Current Medications Current Medications Medications (Trade) Dose Ordered Sig/Isha Route PRN Reason Start Time Stop Time Status Last Admin Norepinephrine Bitartrate 250 ml @ 3.75 mls/hr Q24H IV 11/23/24 11:30 11/23/24 11:07 Sodium Chloride (Saline Lock Ns) 10 ml Q8HR IV 11/23/24 22:00 UNV Docusate Sodium (Colace Capsule) 100 mg BIDPRN PRN PO FOR CONSTIPATION 11/23/24 16:00 UNV Acetaminophen (Tylenol Tablet) 650 mg Q6HP PRN PO PAIN SCALE 1-3 OR TEMP>100.4 11/23/24 16:00 UNV Vital Signs Vital Signs Date Time Temp Pulse Resp B/P (MAP) Pulse Ox O2 Delivery O2 Flow Rate FiO2 11/23/24 15:30 105 19 93/23 (46) 98 11/23/24 15:00 98.6 98.6 11/23/24 11:17 Nasal Cannula* 3 32 Physical Exam Generally-79 years old woman, well nourished well developed. No apparent distress HEENT-atraumatic, normocephalic Heart-sinus tachycardic Lungs decreased breath sounds bilaterally Abdomen soft nontender nondistended Musculoskeletal-no edema cyanosis Neuro-awake, alert, resting in bed. No apparent distress Results Labs Test 11/23/24 15:00 11/23/24 12:54 5/25/25 11:43 Range/Units Urine Color Light-red Yellow Urine Clarity Ex.turbid Clear Urine pH 7.0 5.0-9.0 Urine Specific [place] 1.006 1.001-1.035 Urine Protein 1+ H Negative Urine Ketones Negative Negative Urine Blood 3+ H Negative /uL Urine Nitrite Negative Negative Urine Bilirubin Negative Negative Urine Urobilinogen Normal Negative mg/dL Urine Leukocyte Esterase Trace Negative /uL Urine RBC 4973 0 - 4 /hpf Urine Microscopic WBC 215 H 0-5 /HPF Urine Squamous Epithelial Cells None seen <5 /hpf Urine Bacteria None seen None Seen /hpf Urine Yeast (Budding) Occasional None Seen /hpf Urine Glucose Normal Normal mg/dL Troponin I High Sensitivity 10 </=34 ng/L White Blood Count 8.4 # 4.4-10.8 10^3/uL Red Blood Count 1.82 L 4.0-5.20 10^6/uL Hemoglobin 5.8 #*L 12.2-16.2 g/dL Hematocrit 17.3 #L 36.0-46.0 % Mean Corpuscular Volume 94.9 80.0-100.0 fL Mean Corpuscular Hemoglobin 31.8 28.0-32.0 pg Mean Corpuscular Hemoglobin Concent 33.5 32.0-36.0 g/dL Red Cell Distribution Width 19.3 H 11.8-14.3 % Platelet Count 189 140-450 10^3/uL Mean Platelet Volume 6.6 L 6.9-10.8 fL Neutrophils (%) (Auto) 76.0 37.0-80.0 % Lymphocytes (%) (Auto) 15.2 10.0-50.0 % Monocytes (%) (Auto) 7.3 0.0-12.0 % Eosinophils (%) (Auto) 0.8 0.0-7.0 % Basophils (%) (Auto) 0.7 0.0-2.0 % Neutrophils # (Auto) 6.4 1.6-8.6 10 ^3/uL Lymphocytes # (Auto) 1.3 0.4-5.4 10 ^3/uL Monocytes # (Auto) 0.6 0-1.3 10 ^3/uL Eosinophils # (Auto) 0.1 0-0.8 10 ^3/uL Basophils # (Auto) 0.1 0-0.2 10 ^3/uL Nucleated Red Blood Cells 0.0 % Sodium Level 139 136-145 mmol/L Potassium Level 3.8 3.5-5.1 mmol/L Chloride Level 98 98-107 mmol/L Carbon Dioxide Level 34 H 20-31 mmol/L Anion Gap 7 5-15 Blood Urea Nitrogen 21 9-23 mg/dL Creatinine 0.75 0.550-1.02 mg/dL Glomerular Filtration Rate Calc 80 >90 mL/min BUN/Creatinine Ratio 28.0 H 10.0-20.0 Serum Glucose 96 74-106 mg/dL Lactic Acid Level 0.9 0.4-2.0 mmol/L Calcium Level 8.9 8.7-10.4 mg/dL B-Type Natriuretic Peptide 273.12 0-100 pg/mL Primary Diagnosis Severe anemia require blood transfusion Hematuria Acute urinary tract infection Hemorrhagic shock Plan Patient has had hematuria. Positive UA for hematuria and urinary tract infection Start ceftriaxone 1 g daily in ED. Follow up with the urine culture Patient blood pressure was soft and tachycardic, placed on levo. Admit to ICU for pressor support Transfused in ED. hemoglobin goal greater than seven Check occult blood Urology consult for hematuria Held BP meds Antiplatelets Full code SCD for DVT prophylaxis No GI prophylaxis needed Regular diet Plan discussed with: Patient Problems List: (1) Hematuria (2) Severe anemia Status: Acute (3) Anemia, unspecified Date of Service: November 23, 2024 Billing Provider: VERENICE DIAS MD Common Visit Codes: [id number] INP/OBS CARE (HIGH) VERENICE DIAS MD November 23, 2024 16:00
[2024-11-23] MEDS: FUROSEMIDE 40 MG TAB PO SCH (17:43)
[2024-11-23] MEDS: HYDROcodone-ACET 5/325MG TAB PO PRN (21:27)
[2024-11-23] MEDS: SODIUM CHLOR 0.9% PF (SALINE LOCK) 10ML VIAL/SYR IV SCH (22:25)
[2024-11-23] MEDS: ATORVASTATIN 20 MG TAB PO SCH (22:28)
[2024-11-24 04:54] LABS: Basophils # (auto) 0.1 10 ^3/uL (0-0.2); Eosinophils # (auto) 0.1 10 ^3/uL (0-0.8); Hemoglobin 8.1 g/dL (12.2-16.2); Lymphocytes # (auto) 0.9 10 ^3/uL (0.4-5.4); Monocytes # (auto) 0.6 10 ^3/uL (0-1.3); Neutrophils # (auto) 4.4 10 ^3/uL (1.6-8.6)
[2024-11-24 04:56] LABS: Basophils % (auto) 1.1 % (0.0-2.0); Eosinophils % (auto) 1.8 % (0.0-7.0); Hematocrit 24.1 % (36.0-46.0); Lymphocytes % (auto) 14.7 % (10.0-50.0); Mean Corpuscular Hemoglobin 30.6 pg (28.0-32.0); Mean Corpuscular Hgb Conc. 33.7 g/dL (32.0-36.0); Mean Corpuscular Volume 90.9 fL (80.0-100.0); Monocytes % (auto) 9.8 % (0.0-12.0); Neutrophils % (auto) 72.6 % (37.0-80.0); Platelet Count (auto) 153 10^3/uL (140-450); Red Blood Cells 2.65 10^6/uL (4.0-5.20); Red Cell Distribution Width 17.1 % (11.8-14.3)
[2024-11-24 05:17] LABS: Alanine Aminotransferase 15 U/L (7-40); Albumin 3.1 g/dL (3.2-4.8); Alkaline Phosphatase 43 U/L (46-116); Anion Gap 6 (5-15); Aspartate Aminotransferase 20 U/L (13-40); BUN/Creatinine Ratio 25.7 (10.0-20.0); Bilirubin, Total 0.3 mg/dL (0.2-1.0); Blood Urea Nitrogen 19 mg/dL (9-23); Calcium 8.1 mg/dL (8.7-10.4); Carbon Dioxide 35 mmol/L (20-31); Chloride 98 mmol/L (98-107); Glucose 85 mg/dL (74-106); Potassium 3.5 mmol/L (3.5-5.1); Sodium 139 mmol/L (136-145); Total Protein 5.2 g/dL (5.7-8.2)
[2024-11-24] MEDS: LEVOTHYROXINE SODIUM 25 MCG TAB PO SCH (05:56)
[2024-11-24 07:59] VITALS: PULSE 88; PULSE 97; RESP 14; RESP 23; O2SAT 98; O2SAT 99
[2024-11-24] MEDS: cefTRIAXone 1GM/50ML D5W 50 ML IV SCH (09:13)
[2024-11-24] MEDS: SERTRALINE HCL 50 MG TAB PO SCH (09:13)
[2024-11-24] MEDS: metOLazone 5 MG TAB PO SCH (09:13)
[2024-11-24] MEDS: FLUTICASONE UMECLIDINIUM VILAN IN SCH (09:14)
--- NOTE | 2024-11-24 14:26 | DVHPN2 ---
Reviewed: Care Plan, H&P, Labs, Medications, Previous Orders, Radiology Changes from previous H/P or p: No Changes Objective Vitals Vital Signs Date Time Temp Pulse Resp B/P (MAP) Pulse Ox O2 Delivery O2 Flow Rate FiO2 11/24/24 13:45 100 19 120/73 (89) 94 11/24/24 07:59 Nasal Cannula* 4 36 11/23/24 22:43 97.5 97.5 Intake/Output Intake and Output 11/24/24 07:00 Intake Total 1350.0 ml Output Total 2800 ml Balance -1450.0 ml Intake Oral 0 ml IV Total 250.0 ml Blood Product 600 ml Other 500 ml Output Urine Total 2800 ml Medications Current Medications Medications Dose Ordered Sig/Isha Route Start Time Stop Time Status Last Admin Dose Admin Norepinephrine Bitartrate 250 ml @ 3.75 mls/hr Q24H IV 11/23/24 11:30 11/23/24 11:07 3.75 MLS/HR Sodium Chloride 10 ml Q8HR IV 11/23/24 22:00 11/24/24 14:21 10 ML Docusate Sodium 100 mg BIDPRN PRN PO 11/23/24 16:00 Acetaminophen 650 mg Q6HP PRN PO 11/23/24 16:00 Acetaminophen/ Hydrocodone Bitart 1 tab Q4HP PRN PO 11/23/24 16:00 11/24/24 10:36 1 TAB Ondansetron HCl 4 mg Q4HP PRN IV 11/23/24 16:00 Furosemide 40 mg BIDD PO 11/23/24 18:00 11/24/24 05:56 40 MG Hydroxyzine Pamoate 25 mg TID PRN PO 11/23/24 16:00 Levothyroxine Sodium 25 mcg DAILY@0600 PO 11/24/24 06:00 11/24/24 05:56 25 MCG Sertraline HCl 50 mg DAILY PO 11/24/24 10:00 11/24/24 09:13 50 MG Patient Own Medication 1 puff DAILY IN 11/24/24 10:00 Metolazone 2.5 mg DAILY PO 11/24/24 10:00 Atorvastatin Calcium 10 mg HS PO 11/23/24 22:00 11/23/24 22:28 10 MG Ceftriaxone Sodium 50 ml @ 100 mls/hr DAILY IV 11/24/24 10:00 11/24/24 09:13 100 MLS/HR Laboratory Results Laboratory Tests 11/24/24 04:36 Chemistry Test 11/24/24 04:36 Albumin 3.1 g/dL (3.2-4.8) L Calcium Level 8.1 mg/dL (8.7-10.4) L Total Protein 5.2 g/dL (5.7-8.2) L LFT Test 11/24/24 04:36 Alanine Aminotransferase (ALT) 15 U/L (7-40) Alkaline Phosphatase 43 U/L (46-116) L Aspartate Amino Transferase (AST) 20 U/L (13-40) Total Bilirubin 0.3 mg/dL (0.2-1.0) Urinalysis Test 11/23/24 15:00 Urine Color Light-red (Yellow) Urine Clarity Ex.turbid (Clear) Urine pH 7.0 (5.0-9.0) Urine Specific [place] 1.006 (1.001-1.035) Urine Protein 1+ (Negative) H Urine Ketones Negative (Negative) Urine Blood 3+ /uL (Negative) H Urine Nitrite Negative (Negative) Urine Bilirubin Negative (Negative) Urine Urobilinogen Normal mg/dL (Negative) Urine Leukocyte Esterase Trace /uL (Negative) Urine RBC 4973 /hpf (0 - 4) Urine Microscopic WBC 215 /HPF (0-5) H Urine Squamous Epithelial Cells None seen /hpf (<5) Urine Bacteria None seen /hpf (None Seen) Urine Yeast (Budding) Occasional /hpf (None Urine Glucose Normal mg/dL (Normal) Microbiology Microbiology Date/Time Source Procedure Growth Status 11/23/24 15:00 Voided Urine Urine Culture - Preliminary Resulted 11/23/24 11:43 Blood Blood Culture - Preliminary NO GROWTH AFTER 24 HOURS OF INCUBATION. Resulted Labs and/or images reviewed: Labs reviewed by me, Image(s) reviewed by me Assessment/Plan Assessment/Plan Acute symptomatic anemia hemoglobin 5.8 improved to 8.1 after 2 units RBC transfusion Sepsis secondary to urinary tract infection: Blood cultures urine cultures Rocephin Sepsis Secondary to right lower lobe pneumonia: Rocephin azithromycin to be continued for 10 more days Acute hypoxic respiratory failure Pulmonary embolism right lower lobe on Eliquis COPD exacerbation Chronic respiratory failure on home O2 AFib with RVR Acute on chronic CHF exacerbation: Consult by cardiology Dr. Guilherme Carballo appreciated Chronic hypotension: Midodrine 10 mg PO TID, discussed with Cardiology Dr. Guilherme Carballo History of bladder cancer status post chemo possible lung mets AFib HTN Hypothyroidism Depression Elevated troponin Generalized weakness Peripheral arterial disease Time spent 70 minutes Patient is full code Advanced care planning time 20 minutes Plan discussed with: Patient My Orders Orders - DANO MOJICA MD Procedure Category Date Status Time Transfer Orders XFER 11/24/24 Transmitted 11:59 Date of Service: November 24, 2024 Billing Provider: DANO MOJICA MD Common Visit Codes: [id number] CARE 30-74 MIN DANO MOJICA MD November 24, 2024 14:26
[2024-11-24] MEDS: hydrOXYzine 25 MG TAB or CAP PO PRN (14:33)
[2024-11-24 15:47] VITALS: BP 125/79; PULSE 75; RESP 18; TEMP 97.5; O2SAT 94
[2024-11-24 16:00] VITALS: O2SAT 92
[2024-11-24 16:57] VITALS: BP 125/79; PULSE 75; RESP 18; TEMP 97.5; O2SAT 94
[2024-11-24] MEDS ORDERED: SERT-289 PO (17:14)
[2024-11-24] MEDS ORDERED: ATOR20TA50 PO (17:14)
[2024-11-24] MEDS ORDERED: LORA-1123 PO (17:14)
[2024-11-24] MEDS ORDERED: APIX5TAB PO (17:14)
[2024-11-24] MEDS ORDERED: PANT40T PO (17:14)
[2024-11-24] MEDS: LIDOCAINE 2% JELLY 11ml (GLYDO) UR ONE (18:30)
[2024-11-24 19:47] VITALS: PULSE 109
--- NOTE | 2024-11-24 20:37 | DVHINCON2 ---
Date of service: November 24, 2024 Referring Physician Hospitalist Reason for Consultation Gross hematuria History of Present Illness 79-year-old female BIBA with prior medical history of COPD, CHF, bladder cancer, hypertension, 4 L of home O2; surgical history of hysterectomy in a chief complaint of shortness a breath/blood in urine. EMS report that the patient was picked the from [facility] with the initial call being the blood in the urine, until they arrived on scene with the patient having a pulse rate of being in the 40s, with it being 196 in route for 5 minutes. That the patient was pale in color with mildly unresponsive on scene, most likely due from the low heart rate. Nurse at [facility] did not know any information of the patient. Patient is bed ridden. Patient does have bilateral lower edema. Notes the on scene the patient was on 4 L NC at 84% and was given 10 L which brought it down to 64% then fixed it. Denies chills, fever, N/V/D, CP. No other associated symptoms, modifiers, recent injuries or sick contacts present at this time. Patient's last surveillance cystoscopy by urologist in [place], [place] was in June 2024. Gross hematuria noted x 4-5 days. Primary Care Provider: unknown Reviewed Notes: Nurses Notes, Diabetes Manager Notes, Medications, Allergies Allergies: Coded Allergies: Bupropion (Verified Allergy, Severe, 07/14/19) Ciprofloxacin (Verified Allergy, Severe, 07/14/19) Naproxen (Verified Allergy, Intermediate, 09/03/24) RASH Home Meds Reported Medications Hydroxyzine Pamoate (Hydroxyzine Pamoate) 25 Mg Cap, 1 CAP PO TID PRN for ANXIETY for 60 Days, #180 09/04/24 Furosemide (Furosemide) 40 Mg Tab, 1 TAB PO BID for 100 Days, #200 09/04/24 Vqvismknpbc-Xignodhxszrk-Qxcpp (Trelegy Ellipta 100-62.5-25 Mcg/INH) 1 Aer Aer, 1 PUFF IN DAILY for 30 Days, #60 09/04/24 Ipratropium-Albuterol (COMBIVENT RESPIMAT) Respimat Aer, 1 PUFF IN Q6HR PRN for 30 Days, #4 09/04/24 Potassium Chloride (Potassium Chloride ER) 20 Meq Tab, 1 TAB PO BID for 90 Days, #180 09/04/24 Metolazone (Metolazone) 2.5 Mg Tab, 1 TAB PO DAILY for 90 Days, #90 09/04/24 Levothyroxine Sodium (Levothyroxine Sodium) 25 Mcg Tab, 1 TAB PO DAILY for 90 Days, #90 09/04/24 Sertraline Hcl (Sertraline Hcl) 50 Mg Tab, 1 TAB PO DAILY for 100 Days, #100 09/04/24 Metoprolol Tartrate (Metoprolol Tartrate) 25 Mg Tab, 1 TAB PO BID for 100 Days, #200 09/04/24 Simvastatin (Simvastatin) 20 Mg Tab, 1 TAB PO QPM for 100 Days, #100 07/15/19 Information Source: Patient, Emergency Med Personnel Mode of Arrival: EMS Severity: Moderate Timing: Hours Duration: Since onset Prehospital treatment: None Past Medical History Cancer (Bladder), CHF, COPD (40 L NC on home), HTN Past Surgical History s/p TURBT 5 years ago Surgical History: Hysterectomy 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 History Family History: Alcoholism G8 MOTHER G8 FATHER FH: alcohol abuse G8 FATHER FH: lung cancer G8 MOTHER Allergies: Coded Allergies: Bupropion (Verified Allergy, Severe, 07/14/19) Ciprofloxacin (Verified Allergy, Severe, 07/14/19) Naproxen (Verified Allergy, Intermediate, 09/03/24) RASH Home Meds Reported Medications Sertraline HCl (Sertraline HCl) 50 Mg Tab, 1 TAB PO DAILY 11/24/24 Apixaban Base (ELIQUIS) 5 Mg Tab, TAB PO 11/24/24 Lorazepam (Lorazepam) 1 Mg Tab, TAB PO 11/24/24 Pantoprazole Sodium Sesquihydr (Pantoprazole Sodium) 40 Mg Tab, 1 TAB PO BID 11/24/24 Atorvastatin Calcium (ATORVASTATIN CALCIUM) 20 Mg Tab, 1 TAB PO DAILY 11/24/24 Hydroxyzine Pamoate (Hydroxyzine Pamoate) 25 Mg Cap, 1 CAP PO TID PRN for ANXIETY for 60 Days, #180 09/04/24 Furosemide (Furosemide) 40 Mg Tab, 1 TAB PO BID for 100 Days, #200 09/04/24 Khzrfmiqvcf-Hhqesbybalog-Lwaoz (Trelegy Ellipta 100-62.5-25 Mcg/INH) 1 Aer Aer, 1 PUFF IN DAILY for 30 Days, #60 09/04/24 Ipratropium-Albuterol (COMBIVENT RESPIMAT) Respimat Aer, 1 PUFF IN Q6HR PRN for 30 Days, #4 09/04/24 Potassium Chloride (Potassium Chloride ER) 20 Meq Tab, 1 TAB PO BID for 90 Days, #180 09/04/24 Metolazone (Metolazone) 2.5 Mg Tab, 1 TAB PO DAILY for 90 Days, #90 09/04/24 Levothyroxine Sodium (Levothyroxine Sodium) 25 Mcg Tab, 1 TAB PO DAILY for 90 Days, #90 09/04/24 Sertraline Hcl (Sertraline Hcl) 50 Mg Tab, 1 TAB PO DAILY for 100 Days, #100 09/04/24 Metoprolol Tartrate (Metoprolol Tartrate) 25 Mg Tab, 1 TAB PO BID for 100 Days, #200 09/04/24 Simvastatin (Simvastatin) 20 Mg Tab, 1 TAB PO QPM for 100 Days, #100 07/15/19 Current Medications Current Medications Medications (Trade) Dose Ordered Sig/Isha Route PRN Reason Start Time Stop Time Status Last Admin Sodium Chloride (Saline Lock Ns) 10 ml Q8HR IV 11/23/24 22:00 11/24/24 14:21 Levothyroxine Sodium (Synthroid Tablet) 25 mcg DAILY@0600 PO 11/24/24 06:00 11/24/24 05:56 Sertraline HCl (Zoloft) 50 mg DAILY PO 11/24/24 10:00 11/24/24 09:13 Patient Own Medication 1 puff DAILY IN 11/24/24 10:00 Metolazone (Zaroxolyn) 2.5 mg DAILY PO 11/24/24 10:00 Atorvastatin Calcium (Lipitor) 10 mg HS PO 11/23/24 22:00 11/23/24 22:28 Ceftriaxone Sodium 50 ml @ 100 mls/hr DAILY IV 11/24/24 10:00 11/24/24 09:13 Review of Systems Constitutional: denies: chills, diaphoresis, fatigue, fever, malaise, sweats, weakness, others EENTM: denies: blurred vision, double vision, ear bleeding, ear discharge, ear drainage, ear pain, ear ringing, eye pain, eye redness, hearing loss, mouth pain, mouth swelling, nasal discharge, nose bleeding, nose congestion, nose pain, photophobia, tearing, throat pain, throat swelling, voice changes, others Respiratory: reports: shortness of breath; denies: cough, hemoptysis, orthopnea, SOB at rest, SOB with excertion, stridor, wheezing, others Cardiovascular: denies: chest pain, dizzy spells, diaphoresis, Dyspnea on exertion, edema, irregular heart beat, left arm pain, lightheadedness, palpitations, PND, syncope, others Gastrointestinal: denies: abdomen distended, abdominal pain, blood streaked bowels, constipated, diarrhea, dysphagia, difficulty swallowing, hematemesis, melena, nausea, poor appetite, poor fluid intake, rectal bleeding, rectal pain, vomiting, others Genitourinary: reports: hematuria; denies: abnormal vagina bleeding, burning, dyspareunia, dysuria, flank pain, frequency, incontinence, pain, , vagina discharge, urgency, others Neurological: denies: dizziness, fainting, headache, left sided numbness, left sided weakness, numbness, paresthesia, pre-existing deficit, right sided numbness, right sided weakness, seizure, speech problems, tingling, tremors, weakness, others Musculoskeletal: denies: back pain, gout, joint pain, joint swelling, muscle pain, muscle stiffness, neck pain, others Integumetry: denies: bruises, change in color, change in hair/nails, dryness, laceration, lesions, lumps, rash, wounds, others Allergic/Immunocompromised: denies: Difficulty Healing, Frequent Infections, Hives, Itching, others Hematologic/Lymphatic: denies: anemia, blood clots, easy bleeding, easy bruising, swollen glands, others Endocrine: denies: excessive hunger, excessive sweating, excessive thirst, excessive urination, flushing, intolerance to cold, intolerance to heat, unexplained weight gain, unexplained weight loss, others Psychiatric: denies: anxiety, bipolar disorder, depression, hopeless, panic disorder, schizophrenia, sleepless, suicidal, others All Other Systems: Reviewed and Negative Vital Signs Vital Signs Date Time Temp Pulse Resp B/P (MAP) Pulse Ox O2 Delivery O2 Flow Rate FiO2 11/24/24 18:31 118/62 11/24/24 16:57 97.5 75 18 94 97.5 11/24/24 16:00 Nasal Cannula* 4 36 Physical Exam General Appearance: Normal, Severe Distress HEENT: Normal ENT Inspection, Pharynx Normal, TMs Normal Neck: Full Range of Motion, Non-Tender, Normal, Normal Inspection Respiratory: Accessory Muscle Use, Chest Non-Tender, Respiratory Distress, Other (Coarse breath sounds) Cardiovascular: No Edema, No JVD, No Murmur, No Gallop, Normal Peripheral Pulses, Regular Rate/Rhythm Breast Exam: Deferred Gastrointestinal: No Organomegaly, Non Tender, No Pulsatile Mass, Normal Bowel Sounds, Soft Genitalia: Deferred Pelvic: Deferred Rectal: Deferred Extremities: No calf tenderness, Pedal edema Musculoskeletal : Apperance: Normal Neurologic: Alert, 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 II-XII nml as Tested, No Motor Deficits, Normal Affect, Normal Mood, No Sensory Deficits Cerebellar Function: NOT DONE Reflexes: NOT DONE Skin: Dry, Normal Color, Warm Peripheral Pulses: 3+ Radial (R), 3+ Radial (L) Lymphatic: No Adenopathy Labs/Diagnostic Data Labs Test 11/24/24 04:36 11/23/24 15:00 11/23/24 12:54 11/23/24 11:43 Range/Units White Blood Count 6.0 # 4.4-10.8 10^3/uL Red Blood Count 2.65 L 4.0-5.20 10^6/uL Hemoglobin 8.1 #L 12.2-16.2 g/dL Hematocrit 24.1 #L 36.0-46.0 % Mean Corpuscular Volume 90.9 # 80.0-100.0 fL Mean Corpuscular Hemoglobin 30.6 28.0-32.0 pg Mean Corpuscular Hemoglobin Concent 33.7 32.0-36.0 g/dL Red Cell Distribution Width 17.1 H 11.8-14.3 % Platelet Count 153 140-450 10^3/uL Mean Platelet Volume 6.3 L 6.9-10.8 fL Neutrophils (%) (Auto) 72.6 37.0-80.0 % Lymphocytes (%) (Auto) 14.7 10.0-50.0 % Monocytes (%) (Auto) 9.8 0.0-12.0 % Eosinophils (%) (Auto) 1.8 0.0-7.0 % Basophils (%) (Auto) 1.1 0.0-2.0 % Neutrophils # (Auto) 4.4 1.6-8.6 10 ^3/uL Lymphocytes # (Auto) 0.9 0.4-5.4 10 ^3/uL Monocytes # (Auto) 0.6 0-1.3 10 ^3/uL Eosinophils # (Auto) 0.1 0-0.8 10 ^3/uL Basophils # (Auto) 0.1 0-0.2 10 ^3/uL Nucleated Red Blood Cells 0.0 % Sodium Level 139 136-145 mmol/L Potassium Level 3.5 3.5-5.1 mmol/L Chloride Level 98 98-107 mmol/L Carbon Dioxide Level 35 H 20-31 mmol/L Anion Gap 6 5-15 Blood Urea Nitrogen 19 9-23 mg/dL Creatinine 0.74 0.550-1.02 mg/dL Glomerular Filtration Rate Calc 81 >90 mL/min BUN/Creatinine Ratio 25.7 H 10.0-20.0 Serum Glucose 85 74-106 mg/dL Calcium Level 8.1 L 8.7-10.4 mg/dL Total Bilirubin 0.3 0.2-1.0 mg/dL Aspartate Amino Transferase (AST) 20 13-40 U/L Alanine Aminotransferase (ALT) 15 7-40 U/L Alkaline Phosphatase 43 L 46-116 U/L Total Protein 5.2 L 5.7-8.2 g/dL Albumin 3.1 L 3.2-4.8 g/dL Urine Color Light-red Yellow Urine Clarity Ex.turbid Clear Urine pH 7.0 5.0-9.0 Urine Specific [place] 1.006 1.001-1.035 Urine Protein 1+ H Negative Urine Ketones Negative Negative Urine Blood 3+ H Negative /uL Urine Nitrite Negative Negative Urine Bilirubin Negative Negative Urine Urobilinogen Normal Negative mg/dL Urine Leukocyte Esterase Trace Negative /uL Urine RBC 4973 0 - 4 /hpf Urine Microscopic WBC 215 H 0-5 /HPF Urine Squamous Epithelial Cells None seen <5 /hpf Urine Bacteria None seen None Seen /hpf Urine Yeast (Budding) Occasional None Seen /hpf Urine Glucose Normal Normal mg/dL Troponin I High Sensitivity 10 </=34 ng/L Lactic Acid Level 0.9 0.4-2.0 mmol/L B-Type Natriuretic Peptide 273.12 0-100 pg/mL Microbiology Date/Time Source Procedure Growth Status 11/23/24 15:00 Voided Urine Urine Culture - Preliminary Resulted 11/23/24 11:43 Blood Blood Culture - Preliminary NO GROWTH AFTER 24 HOURS OF INCUBATION. Resulted Assessment Gross hematuria History of bladder cancer Anemia Plan/Recommendation CBI CT Scan AP w/wo IV TURBT Plan discussed with: Patient, Other SHEILA DIAS MD November 24, 2024 20:37
[2024-11-24 21:00] VITALS: BP 113/51; PULSE 102; RESP 20; TEMP 97.6; O2SAT 96
[2024-11-25] VITALS (8 sets, daily range): BP systolic 99–130; BP diastolic 41–67; PULSE 82–100; RESP 14–20; TEMP 97.4–97.8; O2SAT 96–99
[2024-11-25 06:15] LABS: Basophils # (auto) 0 10 ^3/uL (0-0.2); Eosinophils # (auto) 0.1 10 ^3/uL (0-0.8); Hemoglobin 7.4 g/dL (12.2-16.2); Monocytes # (auto) 0.5 10 ^3/uL (0-1.3); Neutrophils # (auto) 3.7 10 ^3/uL (1.6-8.6); White Blood Cell 5.3 10^3/uL (4.4-10.8)
[2024-11-25 06:22] LABS: Basophils % (auto) 0.9 % (0.0-2.0); Eosinophils % (auto) 1.6 % (0.0-7.0); Hematocrit 22.1 % (36.0-46.0); Lymphocytes % (auto) 18.9 % (10.0-50.0); Mean Corpuscular Hgb Conc. 33.7 g/dL (32.0-36.0); Mean Corpuscular Volume 92.1 fL (80.0-100.0); Monocytes % (auto) 9.6 % (0.0-12.0); Platelet Count (auto) 132 10^3/uL (140-450); Red Cell Distribution Width 17.5 % (11.8-14.3)
[2024-11-25 06:37] LABS: Chloride 99 mmol/L (98-107); Sodium 138 mmol/L (136-145)
[2024-11-25 06:38] LABS: Anion Gap 4 (5-15); Calcium 8.7 mg/dL (8.7-10.4)
[2024-11-25 06:40] LABS: Carbon Dioxide 35 mmol/L (20-31); Potassium 3.1 mmol/L (3.5-5.1)
[2024-11-25 06:43] LABS: BUN/Creatinine Ratio 21.6 (10.0-20.0); Blood Urea Nitrogen 16 mg/dL (9-23); Glucose 75 mg/dL (74-106)
[2024-11-25 06:44] LABS: Alkaline Phosphatase 41 U/L (46-116); Total Protein 4.7 g/dL (5.7-8.2)
[2024-11-25 06:45] LABS: Aspartate Aminotransferase 20 U/L (13-40)
[2024-11-25 06:46] LABS: Albumin 2.9 g/dL (3.2-4.8); Bilirubin, Total 0.3 mg/dL (0.2-1.0)
[2024-11-25 06:57] LABS: Alanine Aminotransferase 13 U/L (7-40)
--- NOTE | 2024-11-25 09:13 | DVHPN2 ---
Reviewed: Care Plan, H&P, Labs, Medications, Previous Orders, Radiology Changes from previous H/P or p: No Changes Objective Vitals Vital Signs Date Time Temp Pulse Resp B/P (MAP) Pulse Ox O2 Delivery O2 Flow Rate FiO2 11/25/24 06:40 118/67 11/25/24 05:00 97.4 91 20 98 97.4 11/24/24 20:00 Nasal Cannula* 4 36 Intake/Output Intake and Output 11/25/24 07:00 Intake Total 903 ml Output Total 3177 ml Balance -2274 ml Intake Oral 903 ml Output Urine Total 3175 ml Stool Total 2 ml Medications Current Medications Medications Dose Ordered Sig/Isha Route Start Time Stop Time Status Last Admin Dose Admin Norepinephrine Bitartrate 250 ml @ 3.75 mls/hr Q24H IV 11/23/24 11:30 11/23/24 11:07 3.75 MLS/HR Sodium Chloride 10 ml Q8HR IV 11/23/24 22:00 11/25/24 06:39 10 ML Docusate Sodium 100 mg BIDPRN PRN PO 11/23/24 16:00 Acetaminophen 650 mg Q6HP PRN PO 11/23/24 16:00 Acetaminophen/ Hydrocodone Bitart 1 tab Q4HP PRN PO 11/23/24 16:00 11/24/24 21:22 1 TAB Ondansetron HCl 4 mg Q4HP PRN IV 11/23/24 16:00 Furosemide 40 mg BIDD PO 11/23/24 18:00 11/25/24 06:40 40 MG Hydroxyzine Pamoate 25 mg TID PRN PO 11/23/24 16:00 11/24/24 23:08 25 MG Levothyroxine Sodium 25 mcg DAILY@0600 PO 11/24/24 06:00 11/25/24 06:39 25 MCG Sertraline HCl 50 mg DAILY PO 11/24/24 10:00 11/24/24 09:13 50 MG Patient Own Medication 1 puff DAILY IN 11/24/24 10:00 Metolazone 2.5 mg DAILY PO 11/24/24 10:00 Atorvastatin Calcium 10 mg HS PO 11/23/24 22:00 11/24/24 21:20 10 MG Ceftriaxone Sodium 50 ml @ 100 mls/hr DAILY IV 11/24/24 10:00 11/24/24 09:13 100 MLS/HR Laboratory Results Laboratory Tests 11/25/24 05:36 Chemistry Test 11/25/24 05:36 Albumin 2.9 g/dL (3.2-4.8) L Calcium Level 8.7 mg/dL (8.7-10.4) Total Protein 4.7 g/dL (5.7-8.2) L LFT Test 11/25/24 05:36 Alanine Aminotransferase (ALT) 13 U/L (7-40) Alkaline Phosphatase 41 U/L (46-116) L Aspartate Amino Transferase (AST) 20 U/L (13-40) Total Bilirubin 0.3 mg/dL (0.2-1.0) Urinalysis Test 11/23/24 15:00 Urine Color Light-red (Yellow) Urine Clarity Ex.turbid (Clear) Urine pH 7.0 (5.0-9.0) Urine Specific [place] 1.006 (1.001-1.035) Urine Protein 1+ (Negative) H Urine Ketones Negative (Negative) Urine Blood 3+ /uL (Negative) H Urine Nitrite Negative (Negative) Urine Bilirubin Negative (Negative) Urine Urobilinogen Normal mg/dL (Negative) Urine Leukocyte Esterase Trace /uL (Negative) Urine RBC 4973 /hpf (0 - 4) Urine Microscopic WBC 215 /HPF (0-5) H Urine Squamous Epithelial Cells None seen /hpf (<5) Urine Bacteria None seen /hpf (None Seen) Urine Yeast (Budding) Occasional /hpf (None Urine Glucose Normal mg/dL (Normal) Microbiology Microbiology Date/Time Source Procedure Growth Status 11/23/24 15:00 Voided Urine Urine Culture - Preliminary Resulted 11/23/24 11:43 Blood Blood Culture - Preliminary NO GROWTH AFTER 24 HOURS OF INCUBATION. Resulted Labs and/or images reviewed: Labs reviewed by me, Image(s) reviewed by me Assessment/Plan Assessment/Plan Acute symptomatic anemia hemoglobin 5.8 improved to 7.4 after 2 units RBC transfusion Sepsis secondary to urinary tract infection: Blood cultures negative, urine cultures negative, continue Rocephin Sepsis Secondary to right lower lobe pneumonia: Rocephin azithromycin to be continued for 10 more days Acute hypoxic respiratory failure Pulmonary embolism right lower lobe on Eliquis COPD exacerbation Chronic respiratory failure on home O2 AFib with RVR Acute on chronic CHF exacerbation: Consult by cardiology Dr. Guilherme Carballo appreciated Chronic hypotension: Midodrine 10 mg PO TID, Gross hematuria with History of bladder cancer status post chemo possible lung mets, urology Dr. Centeno ordered continuous bladder irrigation, planning for cystoscopy and TURBT AFib HTN Hypothyroidism Depression Elevated troponin Generalized weakness Peripheral arterial disease Time spent 70 minutes Patient is full code Plan discussed with: Patient My Orders Orders - DANO MOJICA MD Procedure Category Date Status Time Transfer Orders XFER 11/24/24 Transmitted 11:59 Date of Service: November 25, 2024 Billing Provider: DANO MOJICA MD Common Visit Codes: [id number] CARE 30-74 MIN DANO MOJICA MD November 25, 2024 09:13
[2024-11-25 11:10] LABS: INR 1.01 (0.9-1.15); Partial Thromboplastin Time 25.7 SEC (24.5-34.5); Prothrombin Time 10.7 sec (9.3-11.8)
[2024-11-25] MEDS: SODIUM CHLORIDE 0.9% 250 ML IV ONE (12:00)
--- NOTE | 2024-11-25 12:34 | DVH ---
INDICATION: dyspnea TECHNIQUE: Single frontal view of the chest was obtained COMPARISON: XY CHEST PORTABLE on DOS: 11/23/24, XY CHEST PORTABLE on DOS: 11/13/24, XY CHEST PORTABLE o n DOS: 09/12/24, XY CHEST PORTABLE on DOS: 09/10/24, XY CHEST PORTABLE on DOS: 09/09/24, XY CHEST PORTAB LE on DOS: 11/23/24 FINDINGS: The cardiac silhouette is enlarged. The lungs demonstrate bilateral patchy airspace opacities. The pu lmonary vasculature is prominent. Small bilateral pleural effusions. Aortic atherosclerotic disease. There is no pneumothorax. IMPRESSION: 1. Cardiomegaly with pulmonary vascular congestion and bilateral patchy airspace opacities. 2. Small bilateral pleural effusions.
--- NOTE | 2024-11-25 12:41 | DVH ---
Exam: CT CT AB PELVIS W WO CON-IV ONLY History: GROSS HEMATURIA AND BLADDER CANCER Comparison Study: None Technique: Multidetector spiral CT of the abdomen and pelvis was performed from lung bases to pubic s ymphysis. Initial imaging was done without IV contrast, followed by post contrast images of the abdom en and pelvis. Intravenous contrast was administered during this examination. Multiphase CT urogram i maging was obtained. Axial, coronal and sagittal multiplanar reformats were performed by the kiki kauffman on a separate workstation. Radiation Dose : CT Dose: CTDI volume is 16.3 mGy. Dose-length product is 2155.15 mGy*cm Findings: Lung Bases: Small bilateral pleural effusions. Cardiomegaly. Coronary artery calcifications. Vascular calcifications of the aorta. Small pericardial effusion. Liver: The liver is normal in size. No focal lesions. Normal hepatic vascular enhancement. Gallbladder and Biliary Tree: Cholelithiasis noted without secondary findings of cholecystitis or mally iary obstruction. Spleen: Unremarkable Pancreas: Coarse calcifications are present in the region of the pancreatic head and uncinate possibl y representing sequelae of chronic pancreatitis. Adrenal Glands: Unremarkable Kidneys: Kidneys demonstrate normal symmetric enhancement without focal lesions, calculi or hydroneph rosis. Right upper pole cyst measures 1.3 cm. Bladder: Suboptimal distention with Brown catheter in-situ. Grossly, urinary bladder is unremarkable. Bowel: The stomach is grossly normal in appearance. Moderate colonic stool. The appendix is not visua lized; however, no secondary findings of acute appendicitis identified. Ascites: Absent Lymphadenopathy: No mesenteric, retroperitoneal or periportal lymphadenopathy. Abdominal Wall and Mesentery: Diffuse body wall edema. Vasculature: Diffuse vascular atherosclerotic disease is present. Infrarenal abdominal aortic aneurys m is present measuring 3.4 cm. Pelvic Organs: Unremarkable Musculoskeletal: No aggressive focal bony lesions, acute fractures or dislocation. Advanced degenerat alfred changes of bilateral hips. Degenerative changes of the spine. IMPRESSION: Suboptimal distention of the urinary bladder secondary to Brown catheter in-situ. Grossly, no renal m ass or bladder mass is present. Cystoscopy could be considered to further evaluate if clinically santino cated. Additional chronic changes, as above.
--- NOTE | 2024-11-25 15:54 | DVHPN2 ---
Progress Note - Dictate Date Seen: November 25, 2024 Has the PT tested + for MRSA If YES, has PT been informed?: No Medical Necessity Reason Pt with a Central, PICC or Fol: Yes The following are medically ne: Brown Catheter Medical Necessity Reason Gross hematuria Pneumonia Subjective Surgery cancelled today due to pneumonia. vital signs Vital Sign Date Time Temp Pulse Resp B/P (MAP) Pulse Ox O2 Delivery O2 Flow Rate FiO2 11/25/24 13:00 97.5 97 14 125/45 (71) 96 97.5 11/25/24 08:00 Nasal Cannula* 4 36 Total Intake and Output 11/24/24 11/24/24 11/25/24 15:00 23:00 07:00 Intake Total 678 ml 225 ml Output Total 1450 ml 602 ml 1125 ml Balance -1450 ml 76 ml -900 ml medications Current Medications Medications Dose Ordered Sig/Isha Route Start Time Stop Time Status Last Admin Dose Admin Sodium Chloride 10 ml Q8HR IV 11/23/24 22:00 11/25/24 13:04 10 ML Docusate Sodium 100 mg BIDPRN PRN PO 11/23/24 16:00 Acetaminophen 650 mg Q6HP PRN PO 11/23/24 16:00 Acetaminophen/ Hydrocodone Bitart 1 tab Q4HP PRN PO 11/23/24 16:00 11/25/24 13:53 1 TAB Ondansetron HCl 4 mg Q4HP PRN IV 11/23/24 16:00 Furosemide 40 mg BIDD PO 11/23/24 18:00 11/25/24 06:40 40 MG Hydroxyzine Pamoate 25 mg TID PRN PO 11/23/24 16:00 11/25/24 11:12 25 MG Levothyroxine Sodium 25 mcg DAILY@0600 PO 11/24/24 06:00 11/25/24 06:39 25 MCG Sertraline HCl 50 mg DAILY PO 11/24/24 10:00 11/25/24 11:11 50 MG Patient Own Medication 1 puff DAILY IN 11/24/24 10:00 Metolazone 2.5 mg DAILY PO 11/24/24 10:00 Atorvastatin Calcium 10 mg HS PO 11/23/24 22:00 11/24/24 21:20 10 MG Ceftriaxone Sodium 50 ml @ 100 mls/hr DAILY IV 11/24/24 10:00 11/25/24 11:12 100 MLS/HR objective ORDERING PHYSICIAN: SHEILA DIAS MD PROCEDURE(s): ABPEL - CT AB PELVIS W WO CON-IV ONLY REASON: GROSS HEMATURIA AND BLADDER CANCER ORDER NUMBER(s): [id number], ACCESSION NUMBER(s): [id number] Exam: CT CT AB PELVIS W WO CON-IV ONLY History: GROSS HEMATURIA AND BLADDER CANCER Comparison Study: None Technique: Multidetector spiral CT of the abdomen and pelvis was performed from lung bases to pubic symphysis. Initial imaging was done without IV contrast, followed by post contrast images of the abdomen and pelvis. Intravenous contrast was administered during this examination. Multiphase CT urogram imaging was obtained. Axial, coronal and sagittal multiplanar reformats were performed by the technologist on a separate workstation. Radiation Dose : CT Dose: CTDI volume is 16.3 mGy. Dose-length product is 2155.15 mGy*cm Findings: Lung Bases: Small bilateral pleural effusions. Cardiomegaly. Coronary artery calcifications. Vascular calcifications of the aorta. Small pericardial effusion. Liver: The liver is normal in size. No focal lesions. Normal hepatic vascular enhancement. Gallbladder and Biliary Tree: Cholelithiasis noted without secondary findings of cholecystitis or biliary obstruction. Spleen: Unremarkable Pancreas: Coarse calcifications are present in the region of the pancreatic head and uncinate possibly representing sequelae of chronic pancreatitis. Adrenal Glands: Unremarkable Kidneys: Kidneys demonstrate normal symmetric enhancement without focal lesions, calculi or hydronephrosis. Right upper pole cyst measures 1.3 cm. Bladder: Suboptimal distention with Brown catheter in-situ. Grossly, urinary bladder is unremarkable. Bowel: The stomach is grossly normal in appearance. Moderate colonic stool. The appendix is not visualized; however, no secondary findings of acute appendicitis identified. Ascites: Absent Lymphadenopathy: No mesenteric, retroperitoneal or periportal lymphadenopathy. Abdominal Wall and Mesentery: Diffuse body wall edema. Vasculature: Diffuse vascular atherosclerotic disease is present. Infrarenal abdominal aortic aneurysm is present measuring 3.4 cm. Pelvic Organs: Unremarkable Musculoskeletal: No aggressive focal bony lesions, acute fractures or dislocation. Advanced degenerative changes of bilateral hips. Degenerative changes of the spine. IMPRESSION: Suboptimal distention of the urinary bladder secondary to Brown catheter in- situ. Grossly, no renal mass or bladder mass is present. Cystoscopy could be considered to further evaluate if clinically indicated. Additional chronic changes, as above. ATED BY: JOSE CHOUDHURY MD DICTATED DATE/TIME: 11/25/24 1239 SIGNED BY: JOSE CHOUDHURY MD SIGNED DATE/TIME: 11/25/24 1239 CC: laboratory and microbiology Laboratory Tests 11/25/24 05:36 Test 11/25/24 05:36 Range/Units Serum Glucose 75 74-106 mg/dL Problem List Gross hematuria Pneumonia Assessment/Plan Cystoscopy with possible TURBT when medically cleared for anesthesia. Dietary Evaluation Review Comments: Advance to Cardiac diet with supplement with James for wound healing when pt is out of NPO and medically feasible Expected Outcomes/Goals: improved nutrition status. Plan discussed with: Other CC Plasma Assessment Blood Product Administration S: [id number] SHEILA DIAS MD November 25, 2024 15:54
[2024-11-25] MEDS: DOCUSATE SOD 100 MG CAP PO PRN (17:44)
--- NOTE | 2024-11-25 17:47 | DVHINCON2 ---
Date Seen: November 25, 2024 Referring Physician MD Toney Reason for Consultation low BP History of Present Illness This is an 79-year-old female with past medical history of COPD (on 3 L of oxygen at home), CHF (HFpEF), blood in cancer (status post chemotherapy 10 years back), and longstanding low BP (since 3 years patient systolic blood pressure is at 90s) and paroxysmal atrial fibrillation brought to the hospital due to shortness of breaths and blood in urine. Per patient, she has shortness of breaths at baseline (fraction class 4), but since 1 week has progressively worsened which prompted this visit. Patient also has history of bladder cancer, performed chemotherapy 10 years back, were in remission (based on by annual cystoscopy) but since 1 week patient has fresh urethral bleeding. She also reports nausea, orthopnea, and generalized weakness. She denies fever, chest pain, vomiting, palpitation, or any recent sick contact. PMHx: COPD (on 3 L of oxygen at home), CHF (HFpEF), blood in cancer (status post chemotherapy 10 years back), and longstanding low BP (since 3 years patient systolic blood pressure is at 90s) PSHx: Hysterectomy Family history: Noncontributory Social history: Current smoker with 50 pack year history, denies any other drug use Home medication: Levothyroxine, Lasix 40 mg b.i.d., atorvastatin, sertraline, Eliquis 5 mg b.i.d. (due to hematuria patient has stopped using), metolazone 2.5 mg p.r.n., Trelegy, and KCl Allergic history: Bupropion, ciprofloxacin and naproxen Patient seen and examined at the bedside patient is still complained of shortness of breaths and hematuria. Past Medical History Per H&P Past Surgical History Per H&P Family History: Alcoholism G8 MOTHER G8 FATHER FH: alcohol abuse G8 FATHER FH: lung cancer G8 MOTHER Family History Per H&P Social History Per H&P Allergies: Coded Allergies: Bupropion (Verified Allergy, Severe, 07/14/19) Ciprofloxacin (Verified Allergy, Severe, 07/14/19) Naproxen (Verified Allergy, Intermediate, 09/03/24) RASH Home Meds Reported Medications Sertraline HCl (Sertraline HCl) 50 Mg Tab, 1 TAB PO DAILY 11/24/24 Apixaban Base (ELIQUIS) 5 Mg Tab, TAB PO 11/24/24 Lorazepam (Lorazepam) 1 Mg Tab, TAB PO 11/24/24 Pantoprazole Sodium Sesquihydr (Pantoprazole Sodium) 40 Mg Tab, 1 TAB PO BID 11/24/24 Atorvastatin Calcium (ATORVASTATIN CALCIUM) 20 Mg Tab, 1 TAB PO DAILY 11/24/24 Hydroxyzine Pamoate (Hydroxyzine Pamoate) 25 Mg Cap, 1 CAP PO TID PRN for ANXIETY for 60 Days, #180 09/04/24 Furosemide (Furosemide) 40 Mg Tab, 1 TAB PO BID for 100 Days, #200 09/04/24 Kppvnrjrawp-Ioxgxkqwnvgt-Ejxvw (Trelegy Ellipta 100-62.5-25 Mcg/INH) 1 Aer Aer, 1 PUFF IN DAILY for 30 Days, #60 09/04/24 Ipratropium-Albuterol (COMBIVENT RESPIMAT) Respimat Aer, 1 PUFF IN Q6HR PRN for 30 Days, #4 09/04/24 Potassium Chloride (Potassium Chloride ER) 20 Meq Tab, 1 TAB PO BID for 90 Days, #180 09/04/24 Metolazone (Metolazone) 2.5 Mg Tab, 1 TAB PO DAILY for 90 Days, #90 09/04/24 Levothyroxine Sodium (Levothyroxine Sodium) 25 Mcg Tab, 1 TAB PO DAILY for 90 Days, #90 09/04/24 Sertraline Hcl (Sertraline Hcl) 50 Mg Tab, 1 TAB PO DAILY for 100 Days, #100 09/04/24 Metoprolol Tartrate (Metoprolol Tartrate) 25 Mg Tab, 1 TAB PO BID for 100 Days, #200 09/04/24 Simvastatin (Simvastatin) 20 Mg Tab, 1 TAB PO QPM for 100 Days, #100 07/15/19 Review of Systems Per H&P Vital Signs Vital Signs Date Time Temp Pulse Resp B/P (MAP) Pulse Ox O2 Delivery O2 Flow Rate FiO2 11/25/24 13:00 97.5 97 14 125/45 (71) 96 97.5 11/25/24 08:00 Nasal Cannula* 4 36 Physical Exam General Appearance: Alert, Oriented X3, Cooperative, No acute distress HEENT: Atraumatic, PERRLA, EOMI, Mucous membrane moist/pink Respiratory: Bilateral rhonchi Cardiovascular: Regular rate, Normal S1, Normal S2, pansystolic murmur, more prominent at mitral area Abdominal: Normal bowel sounds, Soft, No tenderness, No hepatospenomegaly, No masses Extremities: No clubbing, No cyanosis, No edema, Normal pulses, No tenderness/swelling Skin: No rashes, No breakdown, No significant lesion Neuro: Normal gait, Normal speech, Strength at 5/5 X4 ext, Normal tone, Sensation intact, Cranial nerves 3-12 NL, Reflexes 2+ Psych/Mental Status: Mental status NL, Mood NL Labs/Diagnostic Data Labs Test 11/25/24 11:41 11/25/24 09:35 11/25/24 05:36 11/23/24 15:00 Range/Units POC Glucose 77 70-106 mg/dl Prothrombin Time 10.7 9.3-11.8 sec Prothrombin Time INR 1.01 0.9-1.15 Activated Partial Thromboplast Time 25.7 24.5-34.5 SEC White Blood Count 5.3 4.4-10.8 10^3/uL Red Blood Count 2.40 L 4.0-5.20 10^6/uL Hemoglobin 7.4 L 12.2-16.2 g/dL Hematocrit 22.1 L 36.0-46.0 % Mean Corpuscular Volume 92.1 80.0-100.0 fL Mean Corpuscular Hemoglobin 31.0 28.0-32.0 pg Mean Corpuscular Hemoglobin Concent 33.7 32.0-36.0 g/dL Red Cell Distribution Width 17.5 H 11.8-14.3 % Platelet Count 132 L 140-450 10^3/uL Mean Platelet Volume 6.4 L 6.9-10.8 fL Neutrophils (%) (Auto) 69.0 37.0-80.0 % Lymphocytes (%) (Auto) 18.9 10.0-50.0 % Monocytes (%) (Auto) 9.6 0.0-12.0 % Eosinophils (%) (Auto) 1.6 0.0-7.0 % Basophils (%) (Auto) 0.9 0.0-2.0 % Neutrophils # (Auto) 3.7 1.6-8.6 10 ^3/uL Lymphocytes # (Auto) 1.0 0.4-5.4 10 ^3/uL Monocytes # (Auto) 0.5 0-1.3 10 ^3/uL Eosinophils # (Auto) 0.1 0-0.8 10 ^3/uL Basophils # (Auto) 0 0-0.2 10 ^3/uL Nucleated Red Blood Cells 0.0 % Sodium Level 138 136-145 mmol/L Potassium Level 3.1 L 3.5-5.1 mmol/L Chloride Level 99 98-107 mmol/L Carbon Dioxide Level 35 H 20-31 mmol/L Anion Gap 4 L 5-15 Blood Urea Nitrogen 16 9-23 mg/dL Creatinine 0.74 0.550-1.02 mg/dL Glomerular Filtration Rate Calc 81 >90 mL/min BUN/Creatinine Ratio 21.6 H 10.0-20.0 Serum Glucose 75 74-106 mg/dL Calcium Level 8.7 8.7-10.4 mg/dL Total Bilirubin 0.3 0.2-1.0 mg/dL Aspartate Amino Transferase (AST) 20 13-40 U/L Alanine Aminotransferase (ALT) 13 7-40 U/L Alkaline Phosphatase 41 L 46-116 U/L Total Protein 4.7 L 5.7-8.2 g/dL Albumin 2.9 L 3.2-4.8 g/dL Urine Color Light-red Yellow Urine Clarity Ex.turbid Clear Urine pH 7.0 5.0-9.0 Urine Specific [place] 1.006 1.001-1.035 Urine Protein 1+ H Negative Urine Ketones Negative Negative Urine Blood 3+ H Negative /uL Urine Nitrite Negative Negative Urine Bilirubin Negative Negative Urine Urobilinogen Normal Negative mg/dL Urine Leukocyte Esterase Trace Negative /uL Urine RBC 4973 0 - 4 /hpf Urine Microscopic WBC 215 H 0-5 /HPF Urine Squamous Epithelial Cells None seen <5 /hpf Urine Bacteria None seen None Seen /hpf Urine Yeast (Budding) Occasional None Seen /hpf Urine Glucose Normal Normal mg/dL Test 11/23/24 12:54 11/23/24 11:43 Range/Units Troponin I High Sensitivity 10 </=34 ng/L Lactic Acid Level 0.9 0.4-2.0 mmol/L B-Type Natriuretic Peptide 273.12 0-100 pg/mL Microbiology Date/Time Source Procedure Growth Status 11/25/24 03:50 Nose MRSA Screen - Final Complete 11/23/24 15:00 Voided Urine Urine Culture - Preliminary Resulted 11/23/24 11:43 Blood Blood Culture - Preliminary NO GROWTH AFTER 48 HOURS OF INCUBATION. Resulted Assessment Acute on chronic hypoxic respiratory failure, likely due to COPD exacerbation/pneumonia/heart failure exacerbation Acute on chronic CHF exacerbation (HFpEF) Chronic asymptomatic hypotension (per patient she has chronic low blood pressure, with systolic BP at 90s since 3 years) Acute COPD exacerbation (on 3 L of oxygen at home) Paroxysmal atrial fibrillation (previously on Eliquis 5 mg b.i.d., stopped using due to active bleeding) Hypertension Calcified mitral stenosis Moderate aortic stenosis Bladder cancer (status post chemotherapy, was in remission) possible recurrence Active bleeding, likely due to bladder cancer Severe anemia, likely due to bleeding, status post blood transfusion 2 units * EKGs shows normal sinus rhythm with occasional APCs and PVCs, with no significant ST or T-wave changes * Serial trop I and BNP is within normal limit * Echo from 11/16/24 shows moderate LVH with moderate LV diastolic function (LVEF 65%), heavily calcified mitral and aortic leaflets, likely calcified mitral stenosis with moderate aortic stenosis * Chads Vasc score: 5 points * Has bled score: 1 point Plan/Recommendation (Case discussed with Dr. Carvalho) * Continue Lasix 40 mg b.i.d. * In the setting patient's current clinical status (active bleeding), and having chronic low BP, she does not know need further Cardiology workup at the moment * Discharge plan: Considering patient's high CHADS-VASc score, patient needs anticoagulant upon discharge (after stabilization), cardiology follow up on outpatient basis * Keep K above 4, and Mag above 2 * Rest of plan, per primary team Thank you for allowing us to participate in this patient's care. Please call if you have any questions or concerns. Plan discussed with: Patient, Other (RN) NYHA Physical activity limitations: NA Date of Service: November 25, 2024 Billing Provider: SUKHJINDER CARVALHO MD Cardiology Common Codes: [id number] INP/OBS CARE (High) KELECHI ROMERO November 25, 2024 17:47
[2024-11-26] VITALS (7 sets, daily range): BP systolic 96–121; BP diastolic 55–74; PULSE 63–106; RESP 16–20; TEMP 97.4–98.3; O2SAT 92–98
[2024-11-26 06:40] LABS: Basophils # (auto) 0 10 ^3/uL (0-0.2); Eosinophils # (auto) 0.1 10 ^3/uL (0-0.8); Mean Corpuscular Volume 91.8 fL (80.0-100.0); White Blood Cell 4.5 10^3/uL (4.4-10.8)
[2024-11-26 06:43] LABS: Basophils % (auto) 0.8 % (0.0-2.0); Eosinophils % (auto) 1.7 % (0.0-7.0); Hematocrit 23.9 % (36.0-46.0); Lymphocytes % (auto) 22.1 % (10.0-50.0); Mean Corpuscular Hemoglobin 30.8 pg (28.0-32.0); Mean Corpuscular Hgb Conc. 33.6 g/dL (32.0-36.0); Monocytes # (auto) 0.4 10 ^3/uL (0-1.3); Monocytes % (auto) 9.1 % (0.0-12.0); Neutrophils % (auto) 66.3 % (37.0-80.0); Nucleated Red Blood Cells % 0.6 %; Platelet Count (auto) 147 10^3/uL (140-450); Red Blood Cells 2.61 10^6/uL (4.0-5.20); Red Cell Distribution Width 17.8 % (11.8-14.3)
[2024-11-26 06:59] LABS: Alanine Aminotransferase 15 U/L (7-40); Alkaline Phosphatase 46 U/L (46-116); Anion Gap 5 (5-15); Aspartate Aminotransferase 24 U/L (13-40); BUN/Creatinine Ratio 16.4 (10.0-20.0); Blood Urea Nitrogen 12 mg/dL (9-23); Chloride 98 mmol/L (98-107); Glucose 80 mg/dL (74-106); Sodium 140 mmol/L (136-145)
[2024-11-26 07:00] LABS: Bilirubin, Total 0.3 mg/dL (0.2-1.0)
[2024-11-26 07:07] LABS: Carbon Dioxide 37 mmol/L (20-31); Total Protein 4.8 g/dL (5.7-8.2)
--- NOTE | 2024-11-26 09:20 | DVHPN2 ---
Reviewed: Care Plan, H&P, Labs, Medications, Previous Orders, Radiology Changes from previous H/P or p: No Changes Objective Vitals Vital Signs Date Time Temp Pulse Resp B/P (MAP) Pulse Ox O2 Delivery O2 Flow Rate FiO2 11/26/24 05:00 97.6 63 20 121/71 (88) 97 97.6 11/25/24 20:00 Nasal Cannula* 3 32 Intake/Output Intake and Output 11/26/24 07:00 Intake Total 0 ml Output Total 2340 ml Balance -2340 ml Intake Oral 0 ml Output Urine Total 2340 ml Medications Current Medications Medications Dose Ordered Sig/Isha Route Start Time Stop Time Status Last Admin Dose Admin Sodium Chloride 10 ml Q8HR IV 11/23/24 22:00 11/26/24 05:47 10 ML Docusate Sodium 100 mg BIDPRN PRN PO 11/23/24 16:00 11/25/24 17:44 100 MG Acetaminophen 650 mg Q6HP PRN PO 11/23/24 16:00 Acetaminophen/ Hydrocodone Bitart 1 tab Q4HP PRN PO 11/23/24 16:00 11/26/24 02:55 1 TAB Ondansetron HCl 4 mg Q4HP PRN IV 11/23/24 16:00 Furosemide 40 mg BIDD PO 11/23/24 18:00 11/25/24 06:40 40 MG Hydroxyzine Pamoate 25 mg TID PRN PO 11/23/24 16:00 11/25/24 22:48 25 MG Levothyroxine Sodium 25 mcg DAILY@0600 PO 11/24/24 06:00 11/26/24 05:47 25 MCG Sertraline HCl 50 mg DAILY PO 11/24/24 10:00 11/25/24 11:11 50 MG Patient Own Medication 1 puff DAILY IN 11/24/24 10:00 Atorvastatin Calcium 10 mg HS PO 11/23/24 22:00 11/25/24 22:48 10 MG Ceftriaxone Sodium 50 ml @ 100 mls/hr DAILY IV 11/24/24 10:00 11/25/24 11:12 100 MLS/HR Laboratory Results Laboratory Tests 11/26/24 05:49 Chemistry Test 11/26/24 05:49 Albumin 3.0 g/dL (3.2-4.8) L Calcium Level 9.0 mg/dL (8.7-10.4) Total Protein 4.8 g/dL (5.7-8.2) L Coagulation Test 11/25/24 09:35 Prothrombin Time 10.7 sec (9.3-11.8) Prothrombin Time INR 1.01 (0.9-1.15) Activated Partial Thromboplast Time 25.7 SEC (24.5-34.5) LFT Test 11/26/24 05:49 Alanine Aminotransferase (ALT) 15 U/L (7-40) Alkaline Phosphatase 46 U/L (46-116) Aspartate Amino Transferase (AST) 24 U/L (13-40) Total Bilirubin 0.3 mg/dL (0.2-1.0) Urinalysis Test 11/23/24 15:00 Urine Color Light-red (Yellow) Urine Clarity Ex.turbid (Clear) Urine pH 7.0 (5.0-9.0) Urine Specific [place] 1.006 (1.001-1.035) Urine Protein 1+ (Negative) H Urine Ketones Negative (Negative) Urine Blood 3+ /uL (Negative) H Urine Nitrite Negative (Negative) Urine Bilirubin Negative (Negative) Urine Urobilinogen Normal mg/dL (Negative) Urine Leukocyte Esterase Trace /uL (Negative) Urine RBC 4973 /hpf (0 - 4) Urine Microscopic WBC 215 /HPF (0-5) H Urine Squamous Epithelial Cells None seen /hpf (<5) Urine Bacteria None seen /hpf (None Seen) Urine Yeast (Budding) Occasional /hpf (None Urine Glucose Normal mg/dL (Normal) Microbiology Microbiology Date/Time Source Procedure Growth Status 11/25/24 03:50 Nose MRSA Screen - Final Complete 11/23/24 15:00 Voided Urine Urine Culture - Final Complete 11/23/24 11:43 Blood Blood Culture - Preliminary NO GROWTH AFTER 48 HOURS OF INCUBATION. Resulted Labs and/or images reviewed: Labs reviewed by me, Image(s) reviewed by me Assessment/Plan Assessment/Plan Acute symptomatic anemia hemoglobin 5.8 improved to 7.4 after 2 units RBC transfusion Sepsis secondary to urinary tract infection: Blood cultures negative, urine cultures negative, continue Rocephin Sepsis Secondary to right lower lobe pneumonia: Rocephin azithromycin to be continued for 10 more days Acute hypoxic respiratory failure Pulmonary embolism right lower lobe on Eliquis COPD exacerbation Chronic respiratory failure on home O2 AFib with RVR Acute on chronic CHF exacerbation: Consult by cardiology Dr. Guilherme Carballo appreciated Chronic hypotension for more than three years: Midodrine 10 mg PO TID, cardiology consult by Dr. Valentino appreciated, no further cardiac workup Gross hematuria with History of bladder cancer status post chemo possible lung mets, urology Dr. Centeno ordered continuous bladder irrigation, planning for cystoscopy and TURBT AFib HTN Hypothyroidism Depression Elevated troponin Generalized weakness Peripheral arterial disease Time spent 50 minutes Patient is full code Patient does not want any further procedures and wants to be discharged back on administrative representative Rosalinda at bed side. Plan discussed with: Patient My Orders Orders - DANO MOJICA MD Procedure Category Date Status Time * Cardiology Consult CONS 11/25/24 Transmitted 11:50 Transfer Orders XFER 11/25/24 Transmitted 11:54 * Swallow Request ST 11/25/24 Transmitted 16:04 Cardiac DIET 11/26/24 Transmitted Diet-2gna,Lofat,Lochol Breakfast Date of Service: November 26, 2024 Billing Provider: DANO MOJICA MD Common Visit Codes: [id number] INP/OBS CARE(HIGH) DANO MOJICA MD November 26, 2024 09:20
--- NOTE | 2024-11-26 11:16 | DVHPNRES ---
Progress Note Date Seen: November 26, 2024 Resident Creating Document: KELECHI ROMERO GALEN Has the PT tested + for MRSA If YES, has PT been informed?: No Medical Necessity Reason Pt with a Central, PICC or Fol: Yes The following are medically ne: Brown Catheter Subjective Review of Systems Patient seen and examined at the bedside. Patient is feeling better since yesterday. Objective vital signs Vital Sign Date Time Temp Pulse Resp B/P (MAP) Pulse Ox O2 Delivery O2 Flow Rate FiO2 11/26/24 09:00 98.3 78 20 96/63 (74) 96 98.3 11/25/24 20:00 Nasal Cannula* 3 32 Total Intake and Output 11/25/24 11/25/24 11/26/24 15:00 23:00 07:00 Intake Total 0 ml Output Total 1950 ml 390 ml Balance -1950 ml -390 ml medications Current Medications Medications Dose Ordered Sig/Isha Route Start Time Stop Time Status Last Admin Dose Admin Sodium Chloride 10 ml Q8HR IV 11/23/24 22:00 11/26/24 05:47 10 ML Docusate Sodium 100 mg BIDPRN PRN PO 11/23/24 16:00 11/25/24 17:44 100 MG Acetaminophen 650 mg Q6HP PRN PO 11/23/24 16:00 Acetaminophen/ Hydrocodone Bitart 1 tab Q4HP PRN PO 11/23/24 16:00 11/26/24 02:55 1 TAB Ondansetron HCl 4 mg Q4HP PRN IV 11/23/24 16:00 Furosemide 40 mg BIDD PO 11/23/24 18:00 11/25/24 06:40 40 MG Hydroxyzine Pamoate 25 mg TID PRN PO 11/23/24 16:00 11/25/24 22:48 25 MG Levothyroxine Sodium 25 mcg DAILY@0600 PO 11/24/24 06:00 11/26/24 05:47 25 MCG Sertraline HCl 50 mg DAILY PO 11/24/24 10:00 11/25/24 11:11 50 MG Patient Own Medication 1 puff DAILY IN 11/24/24 10:00 Atorvastatin Calcium 10 mg HS PO 11/23/24 22:00 11/25/24 22:48 10 MG Ceftriaxone Sodium 50 ml @ 100 mls/hr DAILY IV 11/24/24 10:00 11/25/24 11:12 100 MLS/HR Examination General Appearance: Alert, Oriented X3, Cooperative, No acute distress HEENT: Atraumatic, PERRLA, EOMI, Mucous membrane moist/pink Respiratory: Bilateral rhonchi Cardiovascular: Regular rate, Normal S1, Normal S2, pansystolic murmur, more prominent at mitral area Abdominal: Normal bowel sounds, Soft, No tenderness, No hepatospenomegaly, No masses Extremities: No clubbing, No cyanosis, No edema, Normal pulses, No tenderness/swelling Skin: No rashes, No breakdown, No significant lesion Neuro: Normal gait, Normal speech, Strength at 5/5 X4 ext, Normal tone, Sensation intact, Cranial nerves 3-12 NL, Reflexes 2+ Psych/Mental Status: Mental status NL, Mood NL laboratory and microbiology Laboratory Tests 11/26/24 05:49 Test 11/26/24 05:49 Range/Units Serum Glucose 80 74-106 mg/dL Microbiology Date/Time Source Procedure Growth Status 11/25/24 03:50 Nose MRSA Screen - Final Complete 11/23/24 15:00 Voided Urine Urine Culture - Final Complete 11/23/24 11:43 Blood Blood Culture - Preliminary NO GROWTH AFTER 48 HOURS OF INCUBATION. Resulted Labs and/or images reviewed: Labs reviewed by me, Image(s) reviewed by me Problem List/Assessment/Plan Problem List/Assessment/Plan Acute on chronic hypoxic respiratory failure, likely due to COPD exacerbation/pneumonia/heart failure exacerbation Acute on chronic CHF exacerbation (HFpEF) Chronic asymptomatic hypotension (per patient she has chronic low blood pressure, with systolic BP at 90s since 3 years) Acute COPD exacerbation (on 3 L of oxygen at home) Paroxysmal atrial fibrillation (previously on Eliquis 5 mg b.i.d., stopped using due to active bleeding) Hypertension Calcified mitral stenosis Moderate aortic stenosis Bladder cancer (status post chemotherapy, was in remission) possible recurrence Active bleeding, likely due to bladder cancer Severe anemia, likely due to bleeding, status post blood transfusion 2 units * EKGs shows normal sinus rhythm with occasional APCs and PVCs, with no significant ST or T-wave changes * Serial trop I and BNP is within normal limit * Echo from 11/16/24 shows moderate LVH with moderate LV diastolic function (LVEF 65%), heavily calcified mitral and aortic leaflets, likely calcified mitral stenosis with moderate aortic stenosis * Chads Vasc score: 5 points * Has bled score: 1 point Plan/Recommendation (Case discussed with Dr. Willams) * Continue Lasix 40 mg b.i.d. * In the setting patient's current clinical status (active bleeding), and having chronic low BP, she does not know need further Cardiology workup at the moment * We sign off the patient, Discharge plan: Considering patient's high CHADS-VASc score, patient needs anticoagulant upon discharge (after Urology clearance and stabilization), cardiology follow up on outpatient basis * Keep K above 4, and Mag above 2 * Rest of plan, per primary team Thank you for allowing us to participate in this patient's care. Please call if you have any questions or concerns. Plan discussed with: Patient, Other (RN) Dietary Evaluation Review Comments: Advance to Cardiac diet with supplement with James for wound healing when pt is out of NPO and medically feasible Expected Outcomes/Goals: improved nutrition status. CC Plasma Assessment Blood Product Administration S: 2041 Visit Coding Cardiology RES Date of Service: November 26, 2024 Billing Provider: MAYNOR WILLAMS Sr., MD Cardiology Common Codes: [id number] SAME DATE (High) KELECHI ROMERO RESDIENT November 26, 2024 11:16
[2024-11-26] MEDS: POTASSIUM EFFERVESENT TAB 25 MEQ PO ONE (11:53)
--- NOTE | 2024-11-27 08:13 | DVHDS2 ---
Discharge Summary Date of Admission November 23, 2024 at 15:51 Date of Discharge: November 26, 2024 Admitting Diagnosis Generalized weakness and altered mental status Wounds: None Labs/Diagnostic Data: Laboratory Results Test 11/26/24 05:49 11/25/24 11:41 11/25/24 09:35 11/23/24 15:00 White Blood Count 4.5 10^3/uL (4.4-10.8) Red Blood Count 2.61 10^6/uL (4.0-5.20) Hemoglobin 8.0 g/dL (12.2-16.2) Hematocrit 23.9 % (36.0-46.0) Mean Corpuscular Volume 91.8 fL (80.0-100.0) Mean Corpuscular Hemoglobin 30.8 pg (28.0-32.0) Mean Corpuscular Hemoglobin Concent 33.6 g/dL (32.0-36.0) Red Cell Distribution Width 17.8 % (11.8-14.3) Platelet Count 147 10^3/uL (140-450) Mean Platelet Volume 6.5 fL (6.9-10.8) Neutrophils (%) (Auto) 66.3 % (37.0-80.0) Lymphocytes (%) (Auto) 22.1 % (10.0-50.0) Monocytes (%) (Auto) 9.1 % (0.0-12.0) Eosinophils (%) (Auto) 1.7 % (0.0-7.0) Basophils (%) (Auto) 0.8 % (0.0-2.0) Neutrophils # (Auto) 3.0 10 ^3/uL (1.6-8.6) Lymphocytes # (Auto) 1.0 10 ^3/uL (0.4-5.4) Monocytes # (Auto) 0.4 10 ^3/uL (0-1.3) Eosinophils # (Auto) 0.1 10 ^3/uL (0-0.8) Basophils # (Auto) 0 10 ^3/uL (0-0.2) Nucleated Red Blood Cells 0.6 % Sodium Level 140 mmol/L (136-145) Potassium Level 3.0 mmol/L (3.5-5.1) Chloride Level 98 mmol/L (98-107) Carbon Dioxide Level 37 mmol/L (20-31) Anion Gap 5 (5-15) Blood Urea Nitrogen 12 mg/dL (9-23) Creatinine 0.73 mg/dL (0.550-1.02) Glomerular Filtration Rate Calc 83 mL/min (>90) BUN/Creatinine Ratio 16.4 (10.0-20.0) Serum Glucose 80 mg/dL (74-106) Calcium Level 9.0 mg/dL (8.7-10.4) Total Bilirubin 0.3 mg/dL (0.2-1.0) Aspartate Amino Transferase (AST) 24 U/L (13-40) Alanine Aminotransferase (ALT) 15 U/L (7-40) Alkaline Phosphatase 46 U/L (46-116) Total Protein 4.8 g/dL (5.7-8.2) Albumin 3.0 g/dL (3.2-4.8) POC Glucose 77 mg/dl (70-106) Prothrombin Time 10.7 sec (9.3-11.8) Prothrombin Time INR 1.01 (0.9-1.15) Activated Partial Thromboplast Time 25.7 SEC (24.5-34.5) Urine Color Light-red (Yellow) Urine Clarity Ex.turbid (Clear) Urine pH 7.0 (5.0-9.0) Urine Specific [place]son 1.006 (1.001-1.035) Urine Protein 1+ (Negative) Urine Ketones Negative (Negative) Urine Blood 3+ /uL (Negative) Urine Nitrite Negative (Negative) Urine Bilirubin Negative (Negative) Urine Urobilinogen Normal mg/dL (Negative) Urine Leukocyte Esterase Trace /uL (Negative) Urine RBC 4973 /hpf (0 - 4) Urine Microscopic WBC 215 /HPF (0-5) Urine Squamous Epithelial Cells None seen /hpf (<5) Urine Bacteria None seen /hpf (None Seen) Urine Yeast (Budding) Occasional /hpf (None Urine Glucose Normal mg/dL (Normal) Test 11/23/24 12:54 11/23/24 11:43 Troponin I High Sensitivity 10 ng/L (</=34) Lactic Acid Level 0.9 mmol/L (0.4-2.0) B-Type Natriuretic Peptide 273.12 pg/mL (0-100) Other Laboratory Tests 11/26/24 05:49 Brief Hx & Hospital Course: 79-year-old female with multiple medical problems including COPD pulmonary embolism on Eliquis chronic respiratory failure on home oxygen AFib CHF chronic hypotension for more than three years on midodrine AFib hypertension hypothyroidism depression burden from [facility] for generalized weakness. The patient was found to be anemic with hemoglobin 5.8 improved to 7.4 after 2 units RBC transfusion he was also found to be in sepsis secondary to urinary tract infection treated with Rocephin blood cultures negative urine cultures negative patient has had hypotension was on Levophed which was discontinued after improvement of the blood pressure. Patient has right lower lobe pneumonia treated with Rocephin azithromycin. Seen by Cardiology for chronic hypotension. Advised no further cardiac workup. The patient's condition has improved only slightly she is on 3 L of oxygen which is her usual requirement. The patient was on hospice prior to going to [facility]. Patient and her sister Ava decided the patient to go back on hospice and patient was discharged back on hospice. General condition very poor and prognosis very poor. The patient and the sister are aware of the condition. Consults/Reason for consult Cardiology Operations or Procedures None Condition at Discharge: Poor Final Diagnosis/Problems List Acute symptomatic anemia hemoglobin 5.8 improved to 7.4 after 2 units RBC transfusion Sepsis secondary to urinary tract infection: Blood cultures negative, urine cultures negative, continue Rocephin Sepsis Secondary to right lower lobe pneumonia: Rocephin azithromycin to be continued for 10 more days Acute hypoxic respiratory failure Pulmonary embolism right lower lobe on Eliquis COPD exacerbation Chronic respiratory failure on home O2 AFib with RVR Acute on chronic CHF exacerbation: Consult by cardiology Dr. Guilherme Carballo appreciated Chronic hypotension for more than three years: Midodrine 10 mg PO TID, cardiology consult by Dr. Valentino appreciated, no further cardiac workup Gross hematuria with History of bladder cancer status post chemo possible lung mets, urology Dr. Centeno ordered continuous bladder irrigation, planning for cystoscopy and TURBT AFib HTN Hypothyroidism Depression Elevated troponin Generalized weakness Peripheral arterial disease Discharge Disposition: Hospice - Home Discharge Instruct/Medications Diet: Cardiac 2g Na,low cholest Activity: Light activity Follow Up/Referral: Follow up with the hospice Dr Cortes all previous home meds Medications: None 36 (Time taken for discharge summary 36 minutes) Discharge Statement: "Patient was advised to return to the ER or call 911 if any headaches, dizziness, shortness of breath, chest pain, abdominal pain, bleeding, fevers, or worsening of medical condition. Patient was counseled about treatment plan, medications, possible side effects, patientverbalized understanding. All questions were answered to the best of my ability. This discharge took greater then 30 minutes in planning, reviewing documentation, counseling the patient, and discussing with other team members." ASSESSMENT ASSESSMENT Hospital Course Discharged on hospice Assessment Acute symptomatic anemia hemoglobin 5.8 improved to 7.4 after 2 units RBC transfusion Sepsis secondary to urinary tract infection: Blood cultures negative, urine cultures negative, continue Rocephin Sepsis Secondary to right lower lobe pneumonia: Rocephin azithromycin to be continued for 10 more days Acute hypoxic respiratory failure Pulmonary embolism right lower lobe on Eliquis COPD exacerbation Chronic respiratory failure on home O2 AFib with RVR Acute on chronic CHF exacerbation: Consult by cardiology Dr. Guilherme Carballo appreciated Chronic hypotension for more than three years: Midodrine 10 mg PO TID, cardiology consult by Dr. Valentino appreciated, no further cardiac workup Gross hematuria with History of bladder cancer status post chemo possible lung mets, urology Dr. Centeno ordered continuous bladder irrigation, planning for cystoscopy and TURBT AFib HTN Hypothyroidism Depression Elevated troponin Generalized weakness Peripheral arterial disease Date of Service: November 27, 2024 Billing Provider: DANO MOJICA MD Common Visit Codes: 93458-[facility]/OBS DISCH DAY >30min DANO MOJICA MD November 27, 2024 08:13
== END 2024-11-26 17:35 | disposition hospice, home (50) | DRG 871 ==
LOC: EDBD 11:01 → ER 11:01 → OVERFLOW 15:51 → TELE-CENTR 11-24 15:47
PROVIDERS: ADMIT Family Medicine; ATTEND Family Medicine
PROC: 30233N1 Transfusion of Nonautologous Red Blood Cells into Peripheral Vein, Percutaneous Approach (ICD-10-PCS; principal; 2024-11-23)
DX: A41.9 Sepsis, unspecified organism (principal); I26.99 Other pulmonary embolism without acute cor pulmonale; J18.9 Pneumonia, unspecified organism; J96.21 Acute and chronic respiratory failure with hypoxia; R57.8 Other shock; I50.33 Acute on chronic diastolic (congestive) heart failure; J44.0 Chronic obstructive pulmonary disease with (acute) lower respiratory infection; N39.0 Urinary tract infection, site not specified; J44.1 Chronic obstructive pulmonary disease with (acute) exacerbation; D62 Acute posthemorrhagic anemia; E03.9 Hypothyroidism, unspecified; F32.A Depression, unspecified; I73.9 Peripheral vascular disease, unspecified; R31.0 Gross hematuria; F17.210 Nicotine dependence, cigarettes, uncomplicated; I48.0 Paroxysmal atrial fibrillation; I08.0 Rheumatic disorders of both mitral and aortic valves; I11.0 Hypertensive heart disease with heart failure; R00.1 Bradycardia, unspecified; Z85.51 Personal history of malignant neoplasm of bladder; Z90.710 Acquired absence of both cervix and uterus; Z74.01 Bed confinement status; Z88.1 Allergy status to other antibiotic agents; Z88.8 Allergy status to other drugs, medicaments and biological substances; Z79.899 Other long term (current) drug therapy; Z80.1 Family history of malignant neoplasm of trachea, bronchus and lung; Z81.1 Family history of alcohol abuse and dependence; Z79.01 Long term (current) use of anticoagulants; Z92.21 Personal history of antineoplastic chemotherapy; Z99.81 Dependence on supplemental oxygen
CPT/HCPCS: 36415; 71045; 74178; 80048; 80053; 81001; 82962; 83605; 83880; 84484; 85025; 85610; 85730; 86850; 86900; 86901; 86920; 87040; 87081; 87086; 92610; 93005; 96365; 99291; G0378